=== PATIENT | male | born 1940 | race Asian ===

== ENCOUNTER 2018-05-14 11:50 | Inpatient (IN) | payer OTHER, BC ==
[2018-05-14] MEDS ORDERED: ONDANSETRON 4 MG/2 ML VIAL ONE (12:37)
[2018-05-14] MEDS ORDERED: ONDANSETRON 4 MG/2 ML VIAL IVPUSH ONE (12:37)
[2018-05-14] MEDS ORDERED: SODIUM CHLORIDE 0.9% 1000 ML INFUS.BAG IV ONE ×3 (12:40→16:40)
[2018-05-14] MEDS ORDERED: morphine CARPU-JECT 4 MG/1 ML DISP.SYRIN IVPUSH ONE (12:48)
[2018-05-14 13:03] LABS: BASO % 0.3 % (0-2.0); EOS % 2.3 % (0-4.5); HEMATOCRIT 47.7 % (35.4-49); HEMOGLOBIN 15.7 GM/dL (11.7-16.9); LYMPH % 13.6 % (8-40); MCH 28.2 pg (25.7-33.7); MCHC 32.9 g/dl (32.0-35.9); MEAN CELL VOLUME 85.7 fl (80-96); MEAN PLT VOLUME 9.7 fl (7.5-11.1); MONO % 12.2 % (3.8-10.2); NEUT % 71.6 % (42.8-82.8); PLATELET COUNT 184 K/MM3 (134-434); RBC 5.57 M/mm3 (4.00-5.60); RDW 13.5 % (11.9-15.9); WHITE BLOOD COUNT 12.1 K/mm3 (4.0-10.0)
--- NOTE | 2018-05-14 13:07 | PDOC ---
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 The patient reports that when he woke up he had epigastric abdominal pain that was dull and would come and go and become sharp but nonradiating, approx 2 hours after the pain started he began having NBNB vomiting and states that he cannot count the number of episodes of vomiting he has had. He has never had this pain before but notes a history of peptic ulcer bleed 50 years ago that had healed. Since this AM the patient has had 1x normal well formed bowel movements that was nonbloody and has been passing gas. The patient denies a prior history of small bowel obstruction. The patient denies any fevers. The patient denies any other family members having similar symptoms , denies recent travel. Denies diarrhea or constipation, chest pain, shortness of breath, dysuria, or any other complaints at bedside. PMHX: as in HPI PSHX: inguinal hernia repair, umbilical hernia repair, appendectomy, prostate resection Meds: metoprolol, atorvastatin, ASA 81, amlodipine Allergies: none Tob: none Etoh: none Rec drugs: none Past History - Past Medical History Allergies/Adverse Reactions: Allergies Allergy/AdvReac Type Severity Reaction Status Date / Time No Known Allergies Allergy Verified 05/14/18 13:35 Home Medications: Ambulatory Orders Amlodipine Besylate [Norvasc] 10 mg PO DAILY 06/26/12 Metoprolol Tartrate [Lopressor] 50 mg PO DAILY 06/26/12 Aspirin [Aspirin EC] 81 mg PO DAILY 05/14/18 Atorvastatin Ca [Lipitor] 10 mg PO HS 05/14/18 Tramadol HCl 50 mg PO TID PRN 05/14/18 Cancer: Yes (prostate + lung) Cardiac Disorders: Yes CVA: No COPD: No GI Disorders: Yes (Hernia) HTN: Yes Lung CA: Yes (lobectomy) - Surgical History Abdominal Surgery: Yes (hernia repair) Appendectomy: Yes Lung Surgery: Yes - Immunization History Immunization Up to Date: No - Suicide/Smoking/Psychosocial Hx Smoking Status: No Smoking History: Never smoked Have you smoked in the past 12 months: No Number of Cigarettes Smoked Daily: 0 Information on smoking cessation initiated: No 'Breaking Loose' booklet given: 06/26/12 Hx Alcohol Use: No Drug/Substance Use Hx: No Substance Use Type: None Hx Substance Use Treatment: No Review of Systems - Review of Systems Able to Perform ROS?: Yes Is the patient limited Greek proficient: No *Physical Exam - Vital Signs Last Vital Signs Temp Pulse Resp BP Pulse Ox 97.5 F L 63 18 135/68 98 05/14/18 12:07 05/14/18 12:07 05/14/18 12:07 05/14/18 12:07 05/14/18 12:07 - Physical Exam Comments: 05/14/18 13:08 GENERAL: Awake, alert, and fully oriented, in no acute distress HEAD: No signs of trauma, normocephalic, atraumatic EYES: EOMI, sclera anicteric, conjunctiva clear ENT: oropharynx clear without exudates. Moist mucosa NECK: Normal ROM, supple, no lymphadenopathy, JVD, or masses LUNGS: No distress, speaks full sentences, clear to auscultation bilaterally HEART: Regular rate and rhythm, normal S1 and S2, no murmurs, rubs or gallops, peripheral pulses normal and equal bilaterally. ABDOMEN: Soft, distended, tympanitic to percussion, tenderness to epigastric palpation, palpation elicited emesis. No guarding, no rebound. No masses. hypoactive bowel sounds EXTREMITIES : Normal inspection, Normal range of motion, no edema. No clubbing or cyanosis. 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 The patient reports that when he woke up he had epigastric abdominal pain that was dull and would come and go and become sharp but nonradiating, approx 2 hours after the pain started he began having NBNB vomiting and states that he cannot count the number of episodes of vomiting he has had. He has never had this pain before but notes a history of peptic ulcer bleed 50 years ago that had healed. DDX including but not limited to: SBO vs PUD perforation vs viral gastroenteritis W/U: - cbc, cmp, lactic acid, lipase - ua, ucx - abd CT TX: - morphine 4 - zofran 4 ED Course: Patient actively vomiting at bedside. NBNB emesis reports same color as food/ drinks. 05/14/18 15:20 Patient reassessed. Feels improved with morphine. Tenderness to palpation on RUQ and LUQ. Ambulating without difficulty to the bathroom. 05/14/18 16:59 CT abd: significant for small bowel obstruction w/ lead point at the terminal ileum 05/14/18 17:01 Dr. Ramires patient's PCP contacted. Will accept patient for SBO. IV Zosyn started for surgery ppx. *DC/Admit/Observation/Transfer Diagnosis at time of Disposition: Small bowel obstruction - Discharge Dispostion Condition at time of disposition: Stable Decision to Admit order: Yes - Referrals - Patient Instructions - Post Discharge Activity
[2018-05-14] MEDS ORDERED: morphine SULFATE 4 MG/ML VIAL ONE (13:08)
[2018-05-14 13:12] LABS: URINE APPEARANCE CLEAR; URINE BILIRUBIN NEGATIVE (<2.0 mg/dL); URINE COLOR YELLOW; URINE GLUCOSE (UA) NEGATIVE (NEGATIVE); URINE KETONE NEGATIVE (NEGATIVE); URINE LEUK ESTERASE NEGATIVE (NEGATIVE); URINE NITRITE NEGATIVE (NEGATIVE); URINE PROTEIN 1+ (NEGATIVE); URINE UROBILINOGEN NEGATIVE mg/dL (0.2-1.0)
[2018-05-14 13:25] LABS: ALBUMIN 4.8 g/dl (3.4-5.0); ALK PHOS 70 U/L (45-117); ANION GAP 4 MMOL/L (8-16); BLOOD UREA NITROGEN 16 mg/dL (7-18); CALCIUM 10.3 mg/dL (8.5-10.1); CHLORIDE 104 mmol/L (98-107); CO2 29 mmol/L (21-32); CREATININE 1.5 mg/dL (0.55-1.3); GLUCOSE,RANDOM 129 mg/dL (74-106); LIPASE 168 U/L (73-393); POTASSIUM 3.9 mmol/L (3.5-5.1); SGOT/AST 23 U/L (15-37); SGPT/ALT 33 U/L (13-61); SODIUM 137 mmol/L (136-145); TOT PROT 8.9 g/dl (6.4-8.2)
--- NOTE | 2018-05-14 13:33 | PDOC ---
Attending Attestation - HPI HPI: 05/14/18 13:43 The patient is a 77 year old male, with a significant past medical history of hypertension, prostate and lung CA (s/p Chemo +10 years ago), and multiple surgeries, who presents to the emergency department with nausea, vomiting, abdominal pain this morning. He reports about 5 episodes of nonbilious/ nonbloody emesis prior to ED arrival today. He reports diffuse upper abdominal pain which has been intermittent. He also reports feeling bloated. He reports a normal, small, bowel movement this morning. He states he has been passing gas from below. He denies a history of SBO in the past. He denies any recent sick contacts. The patient denies chest pain, shortness of breath, headache and dizziness. The patient denies fever, chills, diarrhea and constipation. The patient denies dysuria, frequency, urgency and hematuria. Allergies: NKDA Past surgical history: inguinal hernia repair, umbilical hernia repair, appendectomy, prostate resection, lobectomy - Physicial Exam PE: 05/14/18 13:44 ROS: A complete review of 10 out of 10 review of systems is taken and is negative apart from what is previously mentioned below and in the HPI. Vitals: Triage vital signs reviewed General Appearance: No acute distress, well nourished, well developed Head: Atraumatic Eyes: Pupils equal reactive round, extraocular movement intact Neck: Supple; No nuchal rigidity Chest Wall: Nontender Cardiac: Regular rate and rhythm, no murmurs, no rubs, no gallops Lungs: Clear to auscultation bilateral, good air movement bilaterally Abdomen: (+) mild epigastric tenderness to palpation. Mildly distended. Soft, normal bowel sounds, Extremities: Full range of motion to all extremities, no cyanosis, clubbing, or edema Skin: Warm and dry, no rashes or lesions, no rash, no petechiae Neuro: AOX3; Cranial Nerves 2-12 grossly intact, Strength intact to all extremities, Sensation intact to all extremities, Psych: Normal mood, normal affect - Medical Decision Making 05/14/18 13:45 Documentation prepared by Sara Veliz, acting as medical records director for Uli Rodriguez MD 05/14/18 16:59 Dr. Ramires was paged via phone answering service at this time. <Sara Veliz - Last Filed: 05/14/18 16:59> - Resident Resident Name: Letitia Galan - ED Attending Attestation I have performed the following: I have examined & evaluated the patient, The case was reviewed & discussed with the resident, I agree w/resident's findings & plan, Exceptions are as noted - Medical Decision Making Nausea vomiting abdominal pain CT abdomen and pelvis demonstrates small bowel obstruction NG tube placed. 2 L normal saline given Surgery consulted We'll admit to medicine for further management. <Uli Rodriguez - Last Filed: 05/14/18 19:15>
[2018-05-14 13:37] LABS: EPI CELLS RARE /HPF (FEW); URINE MUCUS RARE
[2018-05-14] MEDS ORDERED: LACTATED RINGERS SOLUTION 1,000 ML/1,000 ML INFUS.BAG IV SCH (17:00)
--- NOTE | 2018-05-14 17:04 | CONSULT ---
Consult Consult Specialty:: General Surgery Referred by:: Uli Rodriguez Reason for Consultation:: SBO - History of Present Illness Chief Complaint: abdominal pain, N/V History of Present Illness: 77yo [place] M with HTN, HLD, PUD, h/o lung and prostate CA s/p resections and chemo (lung) (13yrs ago), s/p appendectomy, prostatectomy, umbilical hernia repair and left inguinal hernia repair, presented with epigastric pain, bloating , N/V starting early this morning. He admits to mild epigastric pain yesterday, but didn't think much of it and had normal dinner of fish and rice. Around 4am, the pain got significant, but he tried to sleep. He got up again, had some tea, then he subsequently vomited multiple times, mostly liquid, no blood, and the pain got worse. He has noticed some bloating since yesterday as well. Never had this pain before, even when he had bleeding ulcer 50 yrs ago. He did have a BM this morning, and has passed some gas. Denies F/C, mild headache only with vomiting, no diarrhea or constipation. In the ER, he is afebrile, with wbc 12, Hb 15.7, lactate 2, normal GI labs, BUN/ Cr 16/1.5. CT shows small bowel obstruction with dilated stomach and most of SB , transition in terminal ileum region, decompressed colon with proximal stool present, small amount of fluid in RLQ/pelvis in mesentery, no diverticulitis, no free air; oral contrast was not given. NG tube was placed, with only ~100+ml clear output. Surgery is asked to assess. - History Source History Provided By: Patient, Medical Record Limitations to Obtaining History: No Limitations - Past Medical History [employer]ULBS: Yes: Peripheral Neuropathy (secondary to chemo) Cardio/Vascular: Yes: HTN, Hyperlipdemia Pulmonary: Yes: Cancer (GREGORY) Gastrointestinal: Yes: GI Bleed (bleeding ulcer 50 yrs ago), Peptic Ulcer Disease (bled 50 yrs ago) Renal/: Yes: Cancer (prostate s/p prostatectomy) - Past Surgical History Past Surgical History: Yes: Appendectomy (right paramedian scar), Hernia Repair (umbilical and left inguinal), Prostatectomy (lower midline pelvic scar) Additional Surgical History: left upper lung lobectomy - Alcohol/Substance Use Hx Alcohol Use: No ( quit years ago when he had bleeding ulcer) History of Substance Use: reports: None - Smoking History Smoking history: Former smoker Have you smoked in the past 12 months: No If you are a former smoker, when did you quit?: ~10 pk-yr hx from teens to 25yo - Social History Usual Living Arrangement: With Spouse ADL: Independent Place of : Other ([facility]) Home Medications - Allergies Allergies/Adverse Reactions: Allergies Allergy/AdvReac Type Severity Reaction Status Date / Time No Known Allergies Allergy Verified 05/14/18 13:35 - Home Medications Home Medications: Ambulatory Orders Amlodipine Besylate [Norvasc] 10 mg PO DAILY 06/26/12 Metoprolol Tartrate [Lopressor] 50 mg PO DAILY 06/26/12 Aspirin [Aspirin EC] 81 mg PO DAILY 05/14/18 Atorvastatin Ca [Lipitor] 10 mg PO HS 05/14/18 Tramadol HCl 50 mg PO TID PRN 05/14/18 Home Medications (free text): Pramipexole also. Albuterol MDI prn Family Disease History - Family Disease History Family Disease History: Heart Disease: Father ( of enlarged heart), CA: Grandparent (GM - liver, GF - asthma), Respiratory: Grandparent Review of Systems - Review of Systems Constitutional: denies: Chills, Fever, Loss of Appetite Eyes: denies: Blurred Vision, Recent Change in Vision HENT: denies: Difficult Swallowing, Nasal Congestion, Throat Pain Neck: denies: Swollen Glands, Tenderness Cardiovascular: denies: Chest Pain, Palpitations Respiratory: reports: SOB on Exertion (since lung surgery). denies: Cough, SOB Gastrointestinal: reports: Abdominal Pain (with hpi), Bloating (with hpi), Nausea (with hpi), Vomiting (with hpi). denies: Constipation, Diarrhea, Vomiting Blood Genitourinary: reports: Incontinence (since prostate surgery, dribbles/leaks sometimes). denies: Burning, Dysuria Musculoskeletal: reports: Back Pain (chronic), Joint Pain (chronic), Other ( restless legs at night). denies: Muscle Pain Integumentary: denies: Change in Color, Rash Neurological: reports: Numbness (fingers and toes/feet). denies: Dizziness, Headache Psychiatric: reports: Anxiety. denies: Depression Physical Exam Vital Signs: Vital Signs Temperature 97.5 F L 05/14/18 12:07 Pulse Rate 63 05/14/18 12:07 Respiratory Rate 18 05/14/18 12:07 Blood Pressure 135/68 05/14/18 12:07 O2 Sat by Pulse Oximetry (%) 98 05/14/18 12:07 Constitutional: Yes: Well Nourished, No Distress, Calm Eyes: Yes: Conjunctiva Clear, EOM Intact HENT: Yes: Atraumatic, Normocephalic, Other (NG in place, clear output with occasional debris, ~100ml in canister) Neck: Yes: Supple, Trachea Midline Cardiovascular: Yes: Regular Rate and Rhythm, Murmur Respiratory: Yes: Regular, CTA Bilaterally. No: Wheezes Gastrointestinal: Yes: Normal Bowel Sounds (hyperactive in upper quadrants at times), Soft, Distention (tympanitic), Tenderness (LUQ, less epigastric, no jayant/ guarding), Tenderness, Epigastrium (mild), Other (healed scars - right paramedian, lower midline/pelvic, infraumbilical, left groin). No: Tenderness, Rebound ...Rectal Exam: Yes: Deferred Renal/: Yes: Other (nearly clear urine 225ml in urinal). No: CVA Tenderness - Left, CVA Tenderness - Right, Hematuria Musculoskeletal: No: Joint Stiffness, Joint Swelling Extremities: No: Cool, Cyanosis Edema: No Peripheral Pulses WNL: Yes Integumentary: No: Jaundice, Rash Neurological: Yes: Alert, Oriented Psychiatric: Yes: Alert, Oriented Labs: CBC, BMP 05/14/18 12:39 05/14/18 12:39 CMP Sodium 137 mmol/L (136-145) 05/14/18 12:39 Potassium 3.9 mmol/L (3.5-5.1) 05/14/18 12:39 Chloride 104 mmol/L (98-107) 05/14/18 12:39 Carbon Dioxide 29 mmol/L (21-32) 05/14/18 12:39 Anion Gap 4 MMOL/L (8-16) L 05/14/18 12:39 BUN 16 mg/dL (7-18) 05/14/18 12:39 Creatinine 1.5 mg/dL (0.55-1.3) H 05/14/18 12:39 Creat Clearance w eGFR 45.38 (>60) 05/14/18 12:39 Random Glucose 129 mg/dL (74-106) H 05/14/18 12:39 Lactic Acid 2.0 mmol/L (0.4-2.0) 05/14/18 12:39 Calcium 10.3 mg/dL (8.5-10.1) H 05/14/18 12:39 Total Bilirubin 1.0 mg/dL (0.2-1) 05/14/18 12:39 AST 23 U/L (15-37) 05/14/18 12:39 ALT 33 U/L (13-61) 05/14/18 12:39 Alkaline Phosphatase 70 U/L (45-117) 05/14/18 12:39 Total Protein 8.9 g/dl (6.4-8.2) H 05/14/18 12:39 Albumin 4.8 g/dl (3.4-5.0) 05/14/18 12:39 Lipase 168 U/L (73-393) 05/14/18 12:39 INR, PTT INR 1.02 (0.83-1.09) 05/14/18 16:57 Urine Test Results Urine Color Yellow 05/14/18 12:50 Urine Appearance Clear 05/14/18 12:50 Urine pH 8.0 (5.0-8.0) D 05/14/18 12:50 Ur Specific [place] 1.020 (1.010-1.035) 05/14/18 12:50 Urine Protein 1+ (NEGATIVE) H 05/14/18 12:50 Urine Glucose (UA) Negative (NEGATIVE) 05/14/18 12:50 Urine Ketones Negative (NEGATIVE) 05/14/18 12:50 Urine Blood Negative (NEGATIVE) 05/14/18 12:50 Urine Nitrite Negative (NEGATIVE) 05/14/18 12:50 Urine Bilirubin Negative (<2.0 mg/dL) 05/14/18 12:50 Ur Leukocyte Esterase Negative (NEGATIVE) 05/14/18 12:50 Ur Epithelial Cells Rare /HPF (FEW) 05/14/18 12:50 Urine Mucus Rare 05/14/18 12:50 dehydrated by labs renal function near baseline lactate 2, likely a bit dry wbc up a little but H/H also high Imaging - Results Cat Scan: Report Reviewed, Image Reviewed (images personally reviewed - SBO with dilated stomach and SB loops to terminal ileum, with area of transition distally, nondilated colon, stool in proximal colon, decompressed distally, some fluid in RLQ/pelvis in mesentery, no diverticulitis, no free air) Problem List - Problems (1) Small bowel obstruction due to adhesions Assessment/Plan: admitted to medicine NPO/IVF - generous IV rehydration NGT to low continuous suction trend labs serial exams and AXR - will probably need contrast down NGT once he improves and when output diminishes, to follow through to resolution pain meds prn - would use IV Tylenol over narcotics as able GI/DVT prophylaxis hold aspirin and home/ALL po meds until NG out/taking po again will follow with you Thank you for the opportunity to participate in the care of this patient. Code(s): K56.50 - INTESTNL ADHESIONS, UNSP TO PARTIAL VERSUS COMPLETE OBST (2) Epigastric pain Code(s): R10.13 - EPIGASTRIC PAIN (3) Hypovolemia associated with vomiting Code(s): E86.1 - HYPOVOLEMIA (4) Nausea and vomiting Code(s): R11.2 - NAUSEA WITH VOMITING, UNSPECIFIED Qualifiers: Vomiting type: unspecified Vomiting Intractability: non-intractable Qualified Code(s): R11.2 - Nausea with vomiting, unspecified (5) History of lung cancer Assessment/Plan: s/p left upper lobectomy, chemo Code(s): Z85.118 - PERSONAL HISTORY OF MALIGNANT NEOPLASM OF BRONCHUS AND LUNG (6) H/O prostate cancer Assessment/Plan: s/p prostatectomy, denies radiation or chemo for this Code(s): Z85.46 - PERSONAL HISTORY OF MALIGNANT NEOPLASM OF PROSTATE
[2018-05-14 17:48] LABS: INR 1.02 (0.83-1.09)
[2018-05-14 17:50] LABS: ACTIVATED PTT 30.7 SECONDS (25.2-36.5)
[2018-05-14] MEDS ORDERED: PIPERACILLIN/TAZOB 4.5 GM 4.5 GM in DEXTROSE 5%-WATER 100 ML IVPB ONE (18:10)
[2018-05-14] MEDS: LACTATED RINGERS SOLUTION 1,000 ML/1,000 ML INFUS.BAG IV SCH (19:06)
[2018-05-14] MEDS ORDERED: PIPERACILLIN/TAZOB 4.5 GM 4.5 GM/100 ML BAG IVPB ONE (19:08)
[2018-05-15] MEDS ORDERED: morphine SULFATE 4 MG/ML VIAL IVPUSH ONE (03:02)
[2018-05-15] MEDS ORDERED: morphine SULFATE 4 MG/ML VIAL ONE ×2 (03:09→08:13)
[2018-05-15] MEDS ORDERED: morphine SULFATE 4 MG/ML VIAL IVPUSH PRN (05:40)
[2018-05-15] MEDS ORDERED: ONDANSETRON 4 MG/2 ML VIAL ONE (06:14)
[2018-05-15] MEDS: ONDANSETRON 4 MG/2 ML VIAL IVPUSH SCH ×3 (06:19→21:35)
[2018-05-15 06:57] LABS: BASO % 0.5 % (0-2.0); EOS % 1.5 % (0-4.5); HEMATOCRIT 43.9 % (35.4-49); HEMOGLOBIN 14.5 GM/dL (11.7-16.9); LYMPH % 13.1 % (8-40); MCH 28.5 pg (25.7-33.7); MCHC 33.1 g/dl (32.0-35.9); MEAN PLT VOLUME 9.6 fl (7.5-11.1); MONO % 17.7 % (3.8-10.2); NEUT % 67.2 % (42.8-82.8); PLATELET COUNT 161 K/MM3 (134-434); RDW 13.5 % (11.9-15.9); WHITE BLOOD COUNT 12.3 K/mm3 (4.0-10.0)
[2018-05-15 07:20] LABS: ANION GAP 6 MMOL/L (8-16); BLOOD UREA NITROGEN 11 mg/dL (7-18); CALCIUM 8.8 mg/dL (8.5-10.1); CHLORIDE 107 mmol/L (98-107); CO2 26 mmol/L (21-32); CREATININE 1.2 mg/dL (0.55-1.3); GLUCOSE,RANDOM 132 mg/dL (74-106); MAGNESIUM 2.5 mg/dL (1.8-2.4); POTASSIUM 3.4 mmol/L (3.5-5.1); SODIUM 140 mmol/L (136-145)
--- NOTE | 2018-05-15 07:44 | HP ---
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 The patient reports that when he woke up he had epigastric abdominal pain that was dull and would come and go and become sharp but nonradiating, approx 2 hours after the pain started he began having NBNB vomiting and states that he cannot count the number of episodes of vomiting he has had. He has never had this pain before but notes a history of peptic ulcer bleed 50 years ago that had healed. Since this AM the patient has had 1x normal well formed bowel movements that was nonbloody and has been passing gas. The patient denies a prior history of small bowel obstruction. The patient denies any fevers. The patient denies any other family members having similar symptoms , denies recent travel. Denies diarrhea or constipation, chest pain, shortness of breath, dysuria, or any other complaints at bedside. 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: Peripheral Neuropathy (secondary to chemo) Cardiovascular: Yes: HTN, Hyperlipdemia Pulmonary: Yes: Cancer (GREGORY) Gastrointestinal: Yes: GI Bleed (bleeding ulcer 50 yrs ago), Peptic Ulcer Disease (bled 50 yrs ago) Renal/: Yes: Cancer (prostate s/p prostatectomy) - Past Surgical History Past Surgical History: Yes: Appendectomy (right paramedian scar), Hernia Repair (umbilical and left inguinal), Prostatectomy (lower midline pelvic scar) - Smoking History Smoking history: Former smoker Have you smoked in the past 12 months: No Aproximately how many cigarettes per day: 0 If you are a former smoker, when did you quit?: ~10 pk-yr hx from teens to 25yo - Alcohol/Substance Use Hx Alcohol Use: No ( quit years ago when he had bleeding ulcer) History of Substance Use: reports: None - Social History ADL: Independent Home Medications - Allergies Allergies/Adverse Reactions: Allergies Allergy/AdvReac Type Severity Reaction Status Date / Time No Known Allergies Allergy Verified 05/14/18 13:35 - Home Medications Home Medications: Ambulatory Orders Amlodipine Besylate [Norvasc] 10 mg PO DAILY 06/26/12 Metoprolol Tartrate [Lopressor] 50 mg PO DAILY 06/26/12 Aspirin [Aspirin EC] 81 mg PO DAILY 05/14/18 Atorvastatin Ca [Lipitor] 10 mg PO HS 05/14/18 Tramadol HCl 50 mg PO TID PRN 05/14/18 Family Disease History - Family Disease History Family Disease History: Heart Disease: Father ( of enlarged heart), CA: Grandparent (GM - liver, GF - asthma), Respiratory: Grandparent Physical Examination Vital Signs: Vital Signs Temperature 99.0 F 05/15/18 06:44 Pulse Rate 65 05/15/18 06:44 Respiratory Rate 18 05/15/18 06:44 Blood Pressure 165/74 05/15/18 06:44 O2 Sat by Pulse Oximetry (%) 98 05/15/18 06:44 Labs: CBC, BMP 05/15/18 06:30 05/15/18 06:30 Problem List - Problems (1) Small bowel obstruction Code(s): K56.609 - UNSP INTESTNL OBST, UNSP TO PARTIAL VERSUS COMPLETE OBST (2) History of lung cancer Code(s): Z85.118 - PERSONAL HISTORY OF MALIGNANT NEOPLASM OF BRONCHUS AND LUNG (3) History of lobectomy of lung Code(s): Z90.2 - ACQUIRED ABSENCE OF LUNG [PART OF] (4) Hypovolemia associated with vomiting Code(s): E86.1 - HYPOVOLEMIA (5) Small bowel obstruction due to adhesions Code(s): K56.50 - INTESTNL ADHESIONS, UNSP TO PARTIAL VERSUS COMPLETE OBST (6) Nausea and vomiting Code(s): R11.2 - NAUSEA WITH VOMITING, UNSPECIFIED Qualifiers: Vomiting type: unspecified Vomiting Intractability: non-intractable Qualified Code(s): R11.2 - Nausea with vomiting, unspecified Assessment/Plan (1) Small bowel obstruction: NGT/IVfluids Code(s): K56.609 - UNSP INTESTNL OBST, UNSP TO PARTIAL VERSUS COMPLETE OBST (2) History of lung cancer Code(s): Z85.118 - PERSONAL HISTORY OF MALIGNANT NEOPLASM OF BRONCHUS AND LUNG (3) History of lobectomy of lung Code(s): Z90.2 - ACQUIRED ABSENCE OF LUNG [PART OF] (4) Hypovolemia associated with vomiting Code(s): E86.1 - HYPOVOLEMIA (5) Small bowel obstruction due to adhesions Code(s): K56.50 - INTESTNL ADHESIONS, UNSP TO PARTIAL VERSUS COMPLETE OBST (6) Nausea and vomiting Code(s): R11.2 - NAUSEA WITH VOMITING, UNSPECIFIED Qualifiers: Vomiting type: unspecified Vomiting Intractability: non-intractable Qualified Code(s): R11.2 - Nausea with vomiting, unspecified 7) Sepsis/Immunocompramised with ca Lung/Ca prostate: IV zosyn 8) PUD with Gastritis: IV Protonix 8) HTN: IV Metoprolol as Pt is on NG suction case discussed with Surgery Dr Donnelly Pt passing faltus Abd soft Gastritis with Protonix Leukocytosis/Immunocompramised/ Zosyn : ID Dr Lantigua ECHO: WNL IV metoprolol to contorl HTN as Pt on NG tube suction KUB done FU labs and KUB in AM
--- NOTE | 2018-05-15 09:54 | EKG ---
Test Reason : Blood Pressure : / mmHG Vent. Rate : 066 BPM Atrial Rate : 066 BPM P-R Int : 188 ms QRS Dur : 082 ms QT Int : 404 ms P-R-T Axes : 034 -03 038 degrees QTc Int : 423 ms NORMAL SINUS RHYTHM WITH SINUS ARRHYTHMIA INFERIOR INFARCT , AGE UNDETERMINED ABNORMAL ECG WHEN COMPARED WITH ECG OF 26-JUN-2012 12:08, NONSPECIFIC T WAVE ABNORMALITY NOW EVIDENT IN ANTERIOR LEADS Confirmed by RENETTA PRADHAN, ALEX ([id number]) on 05/15/2018 9:54:01 AM Referred By: Confirmed By:ALEX JACKSON MD
[2018-05-15] MEDS: PIPERACILLIN/TAZOB 3.375 GM 3.375 GM in DEXTROSE 5%-WATER - 50 ML IVPB SCH ×2 (10:36→17:13)
--- NOTE | 2018-05-15 11:56 | CON.CARD ---
Consult Consult Specialty:: Cardiology Referred by:: Dr. Ramires Reason for Consultation:: Pre-operative cardiovascular evaluation - History of Present Illness Chief Complaint: Abd pain History of Present Illness: 77yo [place] M with HTN, HLD, PUD, h/o lung and prostate CA s/p resections and chemo (lung) (13yrs ago), s/p appendectomy, prostatectomy, umbilical hernia repair and left inguinal hernia repair, presented with epigastric pain, bloating , nausea, nonbloody emesis, had BM and passing gas. CT shows small bowel obstruction with dilated stomach and most of SB, transition in terminal ileum region, decompressed colon with proximal stool present, small amount of fluid in RLQ/pelvis in mesentery, no diverticulitis, no free air; oral contrast was not given. NG tube was placed, with only ~100+ml clear output. Regarding CV- symptoms, he denies chest pain, dyspnea, near or true syncope, palpitations, orthopnea, PND or LE edema. 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) Cardio/Vascular: Yes: HTN, Hyperlipdemia Pulmonary: Yes: Cancer (GREGORY) Gastrointestinal: Yes: GI Bleed (bleeding ulcer 50 yrs ago), Peptic Ulcer Disease (bled 50 yrs ago) Renal/: Yes: Cancer (prostate s/p prostatectomy) - Past Surgical History Past Surgical History: Yes: Appendectomy (right paramedian scar), Hernia Repair (umbilical and left inguinal), Prostatectomy (lower midline pelvic scar) Additional Surgical History: left upper lung lobectomy - Alcohol/Substance Use Hx Alcohol Use: No ( quit years ago when he had bleeding ulcer) History of Substance Use: reports: None - Smoking History Smoking history: Former smoker Have you smoked in the past 12 months: No Aproximately how many cigarettes per day: 0 If you are a former smoker, when did you quit?: ~10 pk-yr hx from teens to 25yo - Social History Usual Living Arrangement: With Spouse ADL: Independent Home Medications - Allergies Allergies/Adverse Reactions: Allergies Allergy/AdvReac Type Severity Reaction Status Date / Time No Known Allergies Allergy Verified 05/14/18 13:35 - Home Medications Home Medications: Ambulatory Orders Amlodipine Besylate [Norvasc] 10 mg PO DAILY 06/26/12 Metoprolol Tartrate [Lopressor] 50 mg PO DAILY 06/26/12 Aspirin [Aspirin EC] 81 mg PO DAILY 05/14/18 Atorvastatin Ca [Lipitor] 10 mg PO HS 05/14/18 Tramadol HCl 50 mg PO TID PRN 05/14/18 Family Disease History - Family Disease History Family Disease History: Heart Disease: Father ( of enlarged heart), CA: Grandparent (GM - liver, GF - asthma), Respiratory: Grandparent Review of Systems - Review of Systems Constitutional: reports: Loss of Appetite Eyes: reports: No Symptoms HENT: reports: No Symptoms Neck: reports: No Symptoms Cardiovascular: reports: No Symptoms Respiratory: reports: No Symptoms Gastrointestinal: reports: Abdominal Pain, Bloating, Nausea, Vomiting Genitourinary: reports: No Symptoms Musculoskeletal: reports: No Symptoms Integumentary: reports: No Symptoms Neurological: reports: No Symptoms Vital Signs: Vital Signs Temperature 99.0 F 05/15/18 06:44 Pulse Rate 65 05/15/18 06:44 Respiratory Rate 18 05/15/18 06:44 Blood Pressure 165/74 05/15/18 06:44 O2 Sat by Pulse Oximetry (%) 98 05/15/18 06:44 - Other Data Labs, Other Data: CBC, BMP 05/15/18 06:30 05/15/18 06:30 INR, PTT INR 1.02 (0.83-1.09) 05/14/18 16:57 NSR @ 66 inferior Qs Assessment/Plan Amlodipine Besylate [Norvasc] 10 mg PO DAILY 06/26/12 Metoprolol Tartrate [Lopressor] 50 mg PO DAILY 06/26/12 Aspirin [Aspirin EC] 81 mg PO DAILY 05/14/18 Atorvastatin Ca [Lipitor] 10 mg PO HS 05/14/18 Tramadol HCl 50 mg PO TID PRN 05/14/18 - Results Cat Scan: Report Reviewed, Image Reviewed (images personally reviewed - SBO with dilated stomach and SB loops to terminal ileum, with area of transition distally, nondilated colon, stool in proximal colon, decompressed distally, some fluid in RLQ/pelvis in mesentery, no diverticulitis, no free air) Problem List - Problems (1) Small bowel obstruction due to adhesions Assessment/Plan: admitted to medicine NPO/IVF - generous IV rehydration NGT to low continuous suction trend labs serial exams and AXR - will probably need contrast down NGT once he improves and when output diminishes, to follow through to resolution pain meds prn - would use IV Tylenol over narcotics as able GI/DVT prophylaxis hold aspirin and home/ALL po meds until NG out/taking po again will follow with you Thank you for the opportunity to participate in the care of this patient. Code(s): K56.50 - INTESTNL ADHESIONS, UNSP TO PARTIAL VERSUS COMPLETE OBST (2) Epigastric pain Code(s): R10.13 - EPIGASTRIC PAIN (3) Hypovolemia associated with vomiting Code(s): E86.1 - HYPOVOLEMIA (4) Nausea and vomiting Code(s): R11.2 - NAUSEA WITH VOMITING, UNSPECIFIED Qualifiers: Vomiting type: unspecified Vomiting Intractability: non-intractable Qualified Code(s): R11.2 - Nausea with vomiting, unspecified (5) History of lung cancer Assessment/Plan: s/p left upper lobectomy, chemo Code(s): Z85.118 - PERSONAL HISTORY OF MALIGNANT NEOPLASM OF BRONCHUS AND LUNG (6) H/O prostate cancer Assessment/Plan: s/p prostatectomy, denies radiation or chemo for this Code(s): Z85.46 - PERSONAL HISTORY OF MALIGNANT NEOPLASM OF PROSTATE
--- NOTE | 2018-05-15 12:11 | PN ---
Progress Note, Physician History of Present Illness: Pt with SBO s/p multiple abdominal surgeries. NPO with NGT decompression, 750ml brown fluid out overnight, on IVF. Pt had pain overnight, rested after morphine at one point, still with epigastric pain, similar to yesterday. Passed gas twice this morning, no BM. Abdomen still somewhat distended. No overnight events. AXR last night showed NG in stomach, somewhat far in. AXR not yet taken today. - Current Medication List Current Medications: Active Medications Lactated Ringer's (Lactated Ringers Solution) 1,000 ml in 1,000 mls @ 100 mls/ hr IV ASDIR GINA Last Admin: 05/14/18 19:06 Dose: Not Given Piperacillin Sod/Tazobactam (Sod 3.375 gm/ Dextrose) 50 mls @ 100 mls/hr IVPB Q8H-IV GINA; Protocol Stop: 05/21/18 09:59 Piperacillin Sod/Tazobactam (Sod 3.375 gm/ Dextrose) 50 mls @ 100 mls/hr IVPB Q8H-IV GINA; Protocol Stop: 05/16/18 02:29 Last Admin: 05/15/18 10:36 Dose: 100 mls/hr Morphine Sulfate (Morphine Sulfate) 4 mg IVPUSH Q8H PRN PRN Reason: PAIN LEVEL 8 - 10 Last Admin: 05/15/18 08:18 Dose: 4 mg Ondansetron HCl (Zofran Injection) 4 mg IVPUSH TID GINA Last Admin: 05/15/18 06:19 Dose: 4 mg - Objective Vital Signs: Vital Signs Temperature 99.0 F 05/15/18 06:44 Pulse Rate 65 05/15/18 06:44 Respiratory Rate 18 05/15/18 06:44 Blood Pressure 165/74 05/15/18 06:44 O2 Sat by Pulse Oximetry (%) 98 05/15/18 06:44 Constitutional: Yes: Well Nourished, Calm, Mild Distress (uncomfortable) Eyes: Yes: Conjunctiva Clear, EOM Intact HENT: Yes: Atraumatic, Normocephalic, Other (NG in place - withdrawn several centimeters and resecured with good air sumping) Gastrointestinal: Yes: Soft, Distention, Hernia (umbilical/incisional defect palpable), Hypoactive Bowel Sounds (more on right, less on left), Tenderness ( mild diffuse, mostly epigastric, no rebound or guarding), Tenderness, Epigastrium. No: Tenderness, Rebound Musculoskeletal: No: Joint Stiffness, Joint Swelling Extremities: No: Cool, Cyanosis Integumentary: No: Jaundice, Rash Neurological: Yes: Alert, Oriented Labs: CBC, BMP 05/15/18 06:30 05/15/18 06:30 BUN/Cr down wbc slightly down H/H hydrated a bit K low - ....Imaging X-ray: Pending Problem List - Problems (1) Small bowel obstruction due to adhesions Assessment/Plan: admitted to medicine NPO/IVF - generous IV rehydration with K+ replete lytes prn NGT to low continuous suction trend labs serial exams and AXR - pending film this morning will probably need contrast down NGT once he improves and when output diminishes , to follow through to resolution pain meds prn - would use IV Tylenol over narcotics as able and for longer effect GI/DVT prophylaxis hold aspirin and home/ALL po meds until NG out/taking po again will follow with you Had discussed with patient and last night general R/B/A of exploratory laparotomy, possible bowel resection, if he does not resolve with conservative treatment, including but not limited to bleeding, infection, incisional hernia, injury to intraabdominal structures; he understands and would prefer to avoid surgery if possible, but would discuss further if it becomes indicated. Code(s): K56.50 - INTESTNL ADHESIONS, UNSP TO PARTIAL VERSUS COMPLETE OBST (2) Epigastric pain Code(s): R10.13 - EPIGASTRIC PAIN (3) Hypovolemia associated with vomiting Code(s): E86.1 - HYPOVOLEMIA (4) Nausea and vomiting Code(s): R11.2 - NAUSEA WITH VOMITING, UNSPECIFIED Qualifiers: Vomiting type: unspecified Vomiting Intractability: non-intractable Qualified Code(s): R11.2 - Nausea with vomiting, unspecified (5) History of lung cancer Code(s): Z85.118 - PERSONAL HISTORY OF MALIGNANT NEOPLASM OF BRONCHUS AND LUNG (6) H/O prostate cancer Code(s): Z85.46 - PERSONAL HISTORY OF MALIGNANT NEOPLASM OF PROSTATE
--- NOTE | 2018-05-15 12:15 | CON.CARD ---
Consult Consult Specialty:: Cardiology - History of Present Illness History of Present Illness: 77 year old man with past medical history of HTN, HLD, PUD, lung CA and prostate CA (remission for 13 yrs) inguinal hernia repair, umbilical hernia repair and polyneuropathy 2/2 chemotherapy who presents with abdominal pain and vomiting that started this AM. The patient reports that when he woke up he had epigastric abdominal pain that was dull and would come and go and become sharp but nonradiating, approx 2 hours after the pain started he began having NBNB vomiting and states that he cannot count the number of episodes of vomiting he has had. He has never had this pain before but notes a history of peptic ulcer bleed 50 years ago that had healed. Since this AM the patient has had 1x normal well formed bowel movements that was nonbloody and has been passing gas. The patient denies a prior history of small bowel obstruction. The patient denies any fevers. The patient denies any other family members having similar symptoms , denies recent travel. Denies diarrhea or constipation, chest pain, shortness of breath, dysuria, or any other complaints at bedside. 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) Cardio/Vascular: Yes: HTN, Hyperlipdemia Pulmonary: Yes: Cancer (GREGORY) Gastrointestinal: Yes: GI Bleed (bleeding ulcer 50 yrs ago), Peptic Ulcer Disease (bled 50 yrs ago) Renal/: Yes: Cancer (prostate s/p prostatectomy) - Past Surgical History Past Surgical History: Yes: Appendectomy (right paramedian scar), Hernia Repair (umbilical and left inguinal), Prostatectomy (lower midline pelvic scar) Additional Surgical History: left upper lung lobectomy - Alcohol/Substance Use Hx Alcohol Use: No ( quit years ago when he had bleeding ulcer) History of Substance Use: reports: None - Smoking History Smoking history: Former smoker Have you smoked in the past 12 months: No Aproximately how many cigarettes per day: 0 If you are a former smoker, when did you quit?: ~10 pk-yr hx from teens to 25yo - Social History Usual Living Arrangement: With Spouse ADL: Independent Home Medications - Allergies Allergies/Adverse Reactions: Allergies Allergy/AdvReac Type Severity Reaction Status Date / Time No Known Allergies Allergy Verified 05/14/18 13:35 - Home Medications Home Medications: Ambulatory Orders Amlodipine Besylate [Norvasc] 10 mg PO DAILY 06/26/12 Metoprolol Tartrate [Lopressor] 50 mg PO DAILY 06/26/12 Aspirin [Aspirin EC] 81 mg PO DAILY 05/14/18 Atorvastatin Ca [Lipitor] 10 mg PO HS 05/14/18 Tramadol HCl 50 mg PO TID PRN 05/14/18 Family Disease History - Family Disease History Family Disease History: Heart Disease: Father ( of enlarged heart), CA: Grandparent (GM - liver, GF - asthma), Respiratory: Grandparent Review of Systems - Review of Systems Constitutional: reports: No Symptoms Eyes: reports: No Symptoms HENT: reports: No Symptoms Neck: reports: No Symptoms Cardiovascular: reports: No Symptoms Gastrointestinal: reports: Abdominal Pain Genitourinary: reports: No Symptoms Breasts: reports: No Symptoms Reported Musculoskeletal: reports: No Symptoms Integumentary: reports: No Symptoms Neurological: reports: No Symptoms Endocrine: reports: No Symptoms Hematology/Lymphatic: reports: No Symptoms Psychiatric: reports: No Symptoms Vital Signs: Vital Signs Temperature 99.0 F 05/15/18 06:44 Pulse Rate 65 05/15/18 06:44 Respiratory Rate 18 05/15/18 06:44 Blood Pressure 165/74 05/15/18 06:44 O2 Sat by Pulse Oximetry (%) 98 05/15/18 06:44 Constitutional: Yes: Well Nourished, No Distress, Calm Eyes: Yes: WNL, Conjunctiva Clear, EOM Intact HENT: Yes: WNL, Atraumatic, Normocephalic Neck: Yes: WNL, Supple, Trachea Midline Respiratory: Yes: WNL, Regular, CTA Bilaterally Gastrointestinal: Yes: Hypoactive Bowel Sounds, Tenderness Renal/: Yes: WNL Cardiovascular: Yes: WNL, Regular Rate and Rhythm Musculoskeletal: Yes: WNL Extremities: Yes: WNL Integumentary: Yes: WNL Neurological: Yes: WNL, Alert, Oriented ...Motor Strength: WNL Psychiatric: Yes: WNL, Alert, Oriented - Other Data Labs, Other Data: CBC, BMP 05/15/18 06:30 05/15/18 06:30 INR, PTT INR 1.02 (0.83-1.09) 05/14/18 16:57 Imaging - Results Chest X-ray: Pending EKG: Image Reviewed (sr rep abn old IW NM) Problem List - Problems (1) Epigastric pain Code(s): R10.13 - EPIGASTRIC PAIN (2) H/O prostate cancer Code(s): Z85.46 - PERSONAL HISTORY OF MALIGNANT NEOPLASM OF PROSTATE (3) History of lung cancer Code(s): Z85.118 - PERSONAL HISTORY OF MALIGNANT NEOPLASM OF BRONCHUS AND LUNG (4) Hypovolemia associated with vomiting Code(s): E86.1 - HYPOVOLEMIA (5) Nausea and vomiting Code(s): R11.2 - NAUSEA WITH VOMITING, UNSPECIFIED Qualifiers: Vomiting type: unspecified Vomiting Intractability: non-intractable Qualified Code(s): R11.2 - Nausea with vomiting, unspecified (6) Small bowel obstruction Code(s): K56.609 - UNSP INTESTNL OBST, UNSP TO PARTIAL VERSUS COMPLETE OBST (7) Small bowel obstruction due to adhesions Code(s): K56.50 - INTESTNL ADHESIONS, UNSP TO PARTIAL VERSUS COMPLETE OBST (8) Dog bite - wound Code(s): W54.0XXA - BITTEN BY DOG, INITIAL ENCOUNTER (9) Thermal nava of multiple sites Code(s): T30.0 - BURN OF UNSPECIFIED BODY REGION, UNSPECIFIED DEGREE Assessment/Plan HTN, HLD, PUD, lung CA and prostate CA (remission for 13 yrs) inguinal hernia repair, umbilical hernia repair and polyneuropathy 2/2 chemotherapy who presents with abdominal pain and vomiting dx with SBO due to adhessions. Plan SBO - resolving cardiac szymanski stable will check ECHO
[2018-05-15] MEDS ORDERED: ACETAMINOPHEN 1000 MG/100 ML VIAL (NON FORMULARY) IVPB PRN (12:53)
[2018-05-15] MEDS ORDERED: METOPROLOL TARTRATE 5 MG/5 ML VIAL IVPUSH SCH (14:00)
--- NOTE | 2018-05-15 16:53 | ECHO ---
Version: 1 Name: SUSAN FELICIANO Exam: Adult Echocardiogram Study Date: 05/15/2018, 2:02 PM Age: 77 Years MMode/2D Measurements & Calculations IVSd: 1.10 cm LVIDs: 2.9 cm LVIDd: 4.3 cm LVPWd: 1.13 cm Ao root diam: 2.7 cm LA dimension: 3.4 cm Doppler Measurements & Calculations MV E max yasmany: 67.5 cm/sec Med E/e': 12.4 MV A max yasmany: 111.7 cm/sec Med Peak E' Yasmany: 5.5 cm/sec MV E/A: 0.60 Lat E/e': 11.3 Lat Peak E' Yasmany: 5.9 cm/sec Ao max P.7 mmHg Ao V2 max: 138.8 cm/sec Procedure A two-dimensional transthoracic echocardiogram with color flow and Doppler was performed. The study was technically difficult with many images being suboptimal in quality. Left Ventricle The left ventricular size, thickness and function are normal. The left ventricular ejection fraction is normal. E/A reversal consistent with but not diagnostic of poor LV compliance. The left ventricular wall motion is normal. Right Ventricle The right ventricle is not well visualized. Atria Normal left and right atrial size and function. Mitral Valve There is mild mitral valve thickening. There is no mitral valve stenosis. There is mild mitral regur gitation. Tricuspid Valve The tricuspid valve is not well visualized. There is no tricuspid stenosis. There was insufficient T R detected to calculate RV systolic pressure. Aortic Valve The aortic valve is not well visualized. No hemodynamically significant valvular aortic stenosis. No aortic regurgitation is present. Pulmonic Valve The pulmonic valve is not well visualized. Great Vessels The aortic root is normal size. Pericardium/Pleura There is a mild pericardial effusion. Summary Statements The left ventricular size, thickness and function are normal The left ventricular ejection fraction is normal. E/A reversal consistent with but not diagnostic of poor LV compliance The left ventricular wall motion is normal. There is mild mitral regurgitation. The study was technically difficult with many images being suboptimal in quality. There is a mild pericardial effusion. MD Alex Feng 05/15/2018, 4:53 PM Ordering Physician: Alex Feng Referring Physician: ALEX FENG Performed By: Evette Bhat
[2018-05-15] MEDS ORDERED: PIPERACILLIN/TAZOBACTAM 3.375 GM VIAL IVPB ONE (17:00)
[2018-05-15] MEDS ORDERED: DEXTROSE 5%-WATER - 50 ML IVPB ONE (17:00)
[2018-05-15] MEDS: LACTATED RINGERS SOLUTION 1,000 ML/1,000 ML INFUS.BAG IV SCH ×2 (17:10→18:44)
[2018-05-15] MEDS: PANTOPRAZOLE SODIUM 40 MG VIAL IVPUSH SCH ×2 (17:12→21:35)
[2018-05-15 18:40] VITALS: BMI 25.1
[2018-05-15] MEDS: KCL 10 MEQ IVPB 10 MEQ/100 ML INFUS.BAG IVPB SCH (21:32)
[2018-05-15] MEDS: METOPROLOL TARTRATE 5 MG/5 ML VIAL IVPB SCH (21:33)
[2018-05-15] MEDS: ACETAMINOPHEN 1000 MG/100 ML VIAL (NON FORMULARY) IVPB SCH (23:25)
[2018-05-16] MEDS ORDERED: DEXTROSE 5%-WATER - 50 ML IVPB ONE ×4 (00:17→22:52)
[2018-05-16] MEDS ORDERED: PIPERACILLIN/TAZOBACTAM 3.375 GM VIAL IVPB ONE ×4 (00:17→22:52)
[2018-05-16] MEDS: morphine SULFATE 4 MG/ML VIAL IVPUSH PRN ×3 (00:27→17:32)
[2018-05-16] MEDS: PIPERACILLIN/TAZOB 3.375 GM 3.375 GM in DEXTROSE 5%-WATER - 50 ML IVPB SCH ×4 (01:13→17:21)
[2018-05-16] MEDS: KCL 10 MEQ IVPB 10 MEQ/100 ML INFUS.BAG IVPB SCH ×3 (01:13→21:42)
[2018-05-16] MEDS ORDERED: PT OWN MED DRAWER 7, Y5N ONE (02:44)
[2018-05-16] MEDS: METOPROLOL TARTRATE 5 MG/5 ML VIAL IVPB SCH ×3 (03:10→18:30)
[2018-05-16] MEDS: ACETAMINOPHEN 1000 MG/100 ML VIAL (NON FORMULARY) IVPB SCH ×5 (05:45→23:07)
[2018-05-16] MEDS: ONDANSETRON 4 MG/2 ML VIAL IVPUSH SCH ×3 (05:46→21:43)
[2018-05-16 08:02] LABS: BASO % 0.7 % (0-2.0); EOS % 4.3 % (0-4.5); HEMATOCRIT 41.6 % (35.4-49); HEMOGLOBIN 13.7 GM/dL (11.7-16.9); LYMPH % 11.2 % (8-40); MCH 28.3 pg (25.7-33.7); MCHC 32.8 g/dl (32.0-35.9); MEAN CELL VOLUME 86.1 fl (80-96); MEAN PLT VOLUME 9.8 fl (7.5-11.1); MONO % 35.1 % (3.8-10.2); NEUT % 48.7 % (42.8-82.8); PLATELET COUNT 152 K/MM3 (134-434); RBC 4.84 M/mm3 (4.00-5.60); RDW 13.4 % (11.9-15.9); WHITE BLOOD COUNT 11.1 K/mm3 (4.0-10.0)
[2018-05-16 08:25] LABS: ANION GAP 8 MMOL/L (8-16); BLOOD UREA NITROGEN 12 mg/dL (7-18); CALCIUM 8.6 mg/dL (8.5-10.1); CHLORIDE 105 mmol/L (98-107); CHOLESTEROL 109 mg/dL (50-200); CO2 26 mmol/L (21-32); CREATININE 1.3 mg/dL (0.55-1.3); GLUCOSE,RANDOM 101 mg/dL (74-106); HDL CHOLESTEROL 55 mg/dL (40-60); POTASSIUM 3.6 mmol/L (3.5-5.1); SODIUM 139 mmol/L (136-145); TRIGLYCERIDES 90 mg/dL (0-150)
[2018-05-16] MEDS: LACTATED RINGERS SOLUTION 1,000 ML/1,000 ML INFUS.BAG IV SCH ×2 (08:49→19:13)
--- NOTE | 2018-05-16 09:39 | PN ---
Progress Note, Physician Chief Complaint: Pt A&Ox3; weak; in intense pain (abdomen). History of Present Illness: 77 year old man (mathieu Aleman) with past medical history of HTN, HLD, PUD, lung CA and prostate CA (remission for 13 yrs) inguinal hernia repair, umbilical hernia repair and polyneuropathy 2/2 chemotherapy, diastolic CHF ( stable), who presents with abdominal pain and vomiting that started this AM. The patient reports that when he woke up he had epigastric abdominal pain that was dull and would come and go and become sharp but nonradiating, approx 2 hours after the pain started he began having NBNB vomiting and states that he cannot count the number of episodes of vomiting he has had. He has never had this pain before but notes a history of peptic ulcer bleed 50 years ago that had healed. Since this AM the patient has had 1x normal well formed bowel movements that was nonbloody and has been passing gas. The patient denies a prior history of small bowel obstruction. The patient denies any fevers. The patient denies any other family members having similar symptoms, denies recent travel. Denies diarrhea or constipation, chest pain, shortness of breath, dysuria, or any other complaints at bedside. PMHX: as in HPI PSHX: inguinal hernia repair, umbilical hernia repair, appendectomy, prostate resection Meds: metoprolol, atorvastatin, ASA 81, amlodipine Allergies: none Tob: none Etoh: none Rec drugs: none - Current Medication List Current Medications: Active Medications Acetaminophen (Ofirmev Injection -) 1,000 mg IVPB Q6H [facility] Last Admin: 05/16/18 05:45 Dose: 1,000 mg Lactated Ringer's (Lactated Ringers Solution) 1,000 ml in 1,000 mls @ 100 mls/ hr IV ASDIR GINA Last Admin: 05/16/18 08:49 Dose: 100 mls/hr Piperacillin Sod/Tazobactam (Sod 3.375 gm/ Dextrose) 50 mls @ 100 mls/hr IVPB Q8H-IV GINA; Protocol Last Admin: 05/16/18 02:04 Dose: Not Given Metoprolol Tartrate (Lopressor Injection -) 5 mg IVPB Q8H GINA Last Admin: 05/16/18 03:10 Dose: 5 mg Morphine Sulfate (Morphine Sulfate) 4 mg IVPUSH Q4H PRN PRN Reason: PAIN LEVEL 8 - 10 Last Admin: 05/16/18 07:20 Dose: 4 mg Ondansetron HCl (Zofran Injection) 4 mg IVPUSH TID [facility] Last Admin: 05/16/18 05:46 Dose: 4 mg Pantoprazole Sodium (Protonix Iv) 40 mg IVPUSH BID [facility] Last Admin: 05/15/18 21:35 Dose: 40 mg - Objective Vital Signs: Vital Signs Temperature 97.7 F 05/16/18 06:00 Pulse Rate 59 L 05/16/18 06:00 Respiratory Rate 20 05/16/18 06:00 Blood Pressure 137/71 05/16/18 06:00 O2 Sat by Pulse Oximetry (%) 99 05/15/18 21:00 Constitutional: Yes: Anxious, Moderate Distress Eyes: Yes: WNL HENT: Yes: WNL Neck: Yes: WNL Cardiovascular: Yes: S1, S2, S4 Respiratory: Yes: WNL Gastrointestinal: Yes: Tenderness ...Rectal Exam: Yes: Deferred Genitourinary: No: Anuria Musculoskeletal: Yes: WNL Extremities: Yes: WNL Edema: Yes Peripheral Pulses WNL: Yes Integumentary: Yes: WNL Neurological: Yes: WNL Labs: CBC, BMP 05/16/18 07:00 05/16/18 07:00 INR, PTT INR 1.02 (0.83-1.09) 05/14/18 16:57 Abnormal Lab Results 05/17/18 05/17/18 07:08 07:08 Monocytes % 17.2 H Eosinophils % 6.0 H Random Glucose 65 L Problem List - Problems (1) Epigastric pain Code(s): R10.13 - EPIGASTRIC PAIN (2) H/O prostate cancer Code(s): Z85.46 - PERSONAL HISTORY OF MALIGNANT NEOPLASM OF PROSTATE (3) History of lobectomy of lung Code(s): Z90.2 - ACQUIRED ABSENCE OF LUNG [PART OF] (4) History of lung cancer Code(s): Z85.118 - PERSONAL HISTORY OF MALIGNANT NEOPLASM OF BRONCHUS AND LUNG (5) Hypovolemia associated with vomiting Code(s): E86.1 - HYPOVOLEMIA (6) Small bowel obstruction Assessment/Plan: Pt being followed by GI: for abdominal images this morning. Code(s): K56.609 - UNSP INTESTNL OBST, UNSP TO PARTIAL VERSUS COMPLETE OBST (7) Chronic diastolic (congestive) heart failure Assessment/Plan: ECHO: normal LVEF. Has been on amlodipine and metorprolol in the past; all PO meds held due to SBO. Code(s): I50.32 - CHRONIC DIASTOLIC (CONGESTIVE) HEART FAILURE
[2018-05-16] MEDS ORDERED: PIPERACILLIN/TAZOB 3.375 GM 3.375 GM in DEXTROSE 5%-WATER - 50 ML IVPB SCH (10:00)
[2018-05-16] MEDS: PANTOPRAZOLE SODIUM 40 MG VIAL IVPUSH SCH ×2 (10:33→21:43)
--- NOTE | 2018-05-16 13:01 | PN ---
Progress Note, Physician History of Present Illness: Pt addominal distention better passing flatus Less pain - Current Medication List Current Medications: Active Medications Acetaminophen (Ofirmev Injection -) 1,000 mg IVPB Q6H COUNT [facility]CLUDES [facility] Last Admin: 05/16/18 12:34 Dose: 1,000 mg Lactated Ringer's (Lactated Ringers Solution) 1,000 ml in 1,000 mls @ 100 mls/ hr IV [facility] Last Admin: 05/16/18 08:49 Dose: 100 mls/hr Piperacillin Sod/Tazobactam (Sod 3.375 gm/ Dextrose) 50 mls @ 100 mls/hr IVPB Q8H-IV [facility]; Protocol Last Admin: 05/16/18 10:33 Dose: 100 mls/hr Metoprolol Tartrate (Lopressor Injection -) 5 mg IVPB Q8H [facility]CLUD[facility] Last Admin: 05/16/18 11:54 Dose: 5 mg Morphine Sulfate (Morphine Sulfate) 4 mg IVPUSH Q4H PRN PRN Reason: PAIN LEVEL 8 - 10 Last Admin: 05/16/18 07:20 Dose: 4 mg Ondansetron HCl (Zofran Injection) 4 mg IVPUSH TID [facility]CLUDES [facility] Last Admin: 05/16/18 05:46 Dose: 4 mg Pantoprazole Sodium (Protonix Iv) 40 mg IVPUSH BID [facility]CLUD[facility] Last Admin: 05/16/18 10:33 Dose: 40 mg - Objective Vital Signs: Vital Signs Temperature 98.0 F 05/16/18 09:00 Pulse Rate 72 05/16/18 11:54 Respiratory Rate 18 05/16/18 09:00 Blood Pressure 148/90 05/16/18 11:54 O2 Sat by Pulse Oximetry (%) 99 05/15/18 21:00 Constitutional: Yes: No Distress Eyes: Yes: Conjunctiva Clear, EOM Intact HENT: Yes: Atraumatic, Normocephalic Neck: Yes: Supple, Trachea Midline Cardiovascular: Yes: Regular Rate and Rhythm Respiratory: Yes: Regular, CTA Bilaterally Gastrointestinal: Yes: Normal Bowel Sounds, Soft Musculoskeletal: Yes: Back Pain Edema: No Labs: CBC, BMP 05/16/18 07:00 05/16/18 07:00 INR, PTT INR 1.02 (0.83-1.09) 05/14/18 16:57 Problem List - Problems (1) Small bowel obstruction Code(s): K56.609 - UNSP INTESTNL OBST, UNSP TO PARTIAL VERSUS COMPLETE OBST (2) History of lung cancer Code(s): Z85.118 - PERSONAL HISTORY OF MALIGNANT NEOPLASM OF BRONCHUS AND LUNG (3) History of lobectomy of lung Code(s): Z90.2 - ACQUIRED ABSENCE OF LUNG [PART OF] (4) Hypovolemia associated with vomiting Code(s): E86.1 - HYPOVOLEMIA (5) Small bowel obstruction due to adhesions Code(s): K56.50 - INTESTNL ADHESIONS, UNSP TO PARTIAL VERSUS COMPLETE OBST (6) Nausea and vomiting Code(s): R11.2 - NAUSEA WITH VOMITING, UNSPECIFIED Qualifiers: Vomiting type: unspecified Vomiting Intractability: non-intractable Qualified Code(s): R11.2 - Nausea with vomiting, unspecified Assessment/Plan (1) Small bowel obstruction: NGT/IVfluids Code(s): K56.609 - UNSP INTESTNL OBST, UNSP TO PARTIAL VERSUS COMPLETE OBST (2) History of lung cancer Code(s): Z85.118 - PERSONAL HISTORY OF MALIGNANT NEOPLASM OF BRONCHUS AND LUNG (3) History of lobectomy of lung Code(s): Z90.2 - ACQUIRED ABSENCE OF LUNG [PART OF] (4) Hypovolemia associated with vomiting Code(s): E86.1 - HYPOVOLEMIA (5) Small bowel obstruction due to adhesions Code(s): K56.50 - INTESTNL ADHESIONS, UNSP TO PARTIAL VERSUS COMPLETE OBST (6) Nausea and vomiting Code(s): R11.2 - NAUSEA WITH VOMITING, UNSPECIFIED Qualifiers: Vomiting type: unspecified Vomiting Intractability: non-intractable Qualified Code(s): R11.2 - Nausea with vomiting, unspecified 7) Sepsis/Immunocompramised with ca Lung/Ca prostate: IV zosyn 8) PUD with Gastritis: IV Protonix 8) HTN: IV Metoprolol as Pt is on NG suction Pt is better Passing flatus KUB: Better with partial resolution FU labs and KUB in AM
--- NOTE | 2018-05-16 16:46 | CON.ID ---
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 Denies diarrhea or constipation, chest pain, shortness of breath, dysuria, or any other complaints at bedside. 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) Cardio/Vascular: Yes: HTN, Hyperlipdemia Pulmonary: Yes: Cancer ([facility]) Gastrointestinal: Yes: GI Bleed (bleeding ulcer 50 yrs ago), Peptic Ulcer Disease (bled 50 yrs ago) Renal/: Yes: Cancer (prostate s/p prostatectomy) - Past Surgical History Past Surgical History: Yes: Appendectomy (right paramedian scar), Hernia Repair (umbilical and left inguinal), Prostatectomy (lower midline pelvic scar) Additional Surgical History: left upper lung lobectomy - Alcohol/Substance Use Hx Alcohol Use: No History of Substance Use: reports: None - Smoking History Smoking history: Never smoked Have you smoked in the past 12 months: No Aproximately how many cigarettes per day: 0 If you are a former smoker, when did you quit?: ~10 pk-yr hx from teens to 25yo - Social History Usual Living Arrangement: With Spouse ADL: Independent Home Medications - Allergies Allergies/Adverse Reactions: Allergies Allergy/AdvReac Type Severity Reaction Status Date / Time No Known Allergies Allergy Verified 05/14/18 13:35 - Home Medications Home Medications: Ambulatory Orders Amlodipine Besylate [Norvasc] 10 mg PO DAILY 06/26/12 Metoprolol Tartrate [Lopressor] 50 mg PO DAILY 06/26/12 Aspirin [Aspirin EC] 81 mg PO DAILY 05/14/18 Atorvastatin Ca [Lipitor] 10 mg PO HS 05/14/18 Tramadol HCl 50 mg PO TID PRN 05/14/18 Family Disease History - Family Disease History Family Disease History: Heart Disease: Father ( of enlarged heart), CA: Grandparent (GM - liver, GF - asthma), Respiratory: Grandparent Review of Systems - Review of Systems Constitutional: reports: No Symptoms Eyes: reports: No Symptoms HENT: reports: No Symptoms Neck: reports: No Symptoms Cardiovascular: reports: No Symptoms Respiratory: reports: No Symptoms Gastrointestinal: reports: Abdominal Pain Genitourinary: reports: No Symptoms Musculoskeletal: reports: No Symptoms Integumentary: reports: No Symptoms Neurological: reports: No Symptoms Endocrine: reports: No Symptoms Hematology/Lymphatic: reports: No Symptoms Psychiatric: reports: No Symptoms Physical Exam Vital Signs: Vital Signs Temperature 98.3 F 05/16/18 13:29 Pulse Rate 62 05/16/18 13:29 Respiratory Rate 16 05/16/18 13:29 Blood Pressure 151/77 05/16/18 13:29 O2 Sat by Pulse Oximetry (%) 98 05/16/18 09:00 Constitutional: Yes: Well Nourished, Calm, Mild Distress Eyes: Yes: Conjunctiva Clear HENT: Yes: Atraumatic, Normocephalic Neck: Yes: Supple, Trachea Midline Cardiovascular: Yes: Regular Rate and Rhythm Respiratory: Yes: Regular, Poor Air Entry (at the bases) Gastrointestinal: Yes: Soft, Hypoactive Bowel Sounds, Vomiting, Other (ng tube in place) Musculoskeletal: Yes: WNL Extremities: Yes: WNL Neurological: Yes: Alert, Oriented Psychiatric: Yes: Alert, Oriented Labs: CBC, BMP 05/16/18 07:00 05/16/18 07:00 Imaging - Results Chest X-ray: Report Reviewed, Image Reviewed X-ray: Report Reviewed, Image Reviewed Cat Scan: Report Reviewed, Image Reviewed Assessment/Plan Problem List - Problems (1) Small bowel obstruction Code(s): K56.609 - UNSP INTESTNL OBST, UNSP TO PARTIAL VERSUS COMPLETE OBST (2) History of lung cancer Code(s): Z85.118 - PERSONAL HISTORY OF MALIGNANT NEOPLASM OF BRONCHUS AND LUNG (3) History of lobectomy of lung Code(s): Z90.2 - ACQUIRED ABSENCE OF LUNG [PART OF] (4) Hypovolemia associated with vomiting Code(s): E86.1 - HYPOVOLEMIA (5) Small bowel obstruction due to adhesions Code(s): K56.50 - INTESTNL ADHESIONS, UNSP TO PARTIAL VERSUS COMPLETE OBST (6) Nausea and vomiting Code(s): R11.2 - NAUSEA WITH VOMITING, UNSPECIFIED Qualifiers: Vomiting type: unspecified Vomiting Intractability: non-intractable Qualified Code(s): R11.2 - Nausea with vomiting, unspecified Assessment/Plan (1) Small bowel obstruction: NGT/IVfluids Code(s): K56.609 - UNSP INTESTNL OBST, UNSP TO PARTIAL VERSUS COMPLETE OBST (2) History of lung cancer Code(s): Z85.118 - PERSONAL HISTORY OF MALIGNANT NEOPLASM OF BRONCHUS AND LUNG (3) History of lobectomy of lung Code(s): Z90.2 - ACQUIRED ABSENCE OF LUNG [PART OF] (4) Hypovolemia associated with vomiting Code(s): E86.1 - HYPOVOLEMIA (5) Small bowel obstruction due to adhesions Code(s): K56.50 - INTESTNL ADHESIONS, UNSP TO PARTIAL VERSUS COMPLETE OBST (6) Nausea and vomiting Code(s): R11.2 - NAUSEA WITH VOMITING, UNSPECIFIED Qualifiers: Vomiting type: unspecified Vomiting Intractability: non-intractable Qualified Code(s): R11.2 - Nausea with vomiting, unspecified 7 leukocytosis patient who has multiple medical problems and who is immunocompromised comes in with leukocytosis,sbo and abd pain and with ng tube plan will start on zosyn surgery on case hydration rest as per the team
--- NOTE | 2018-05-16 17:25 | PN ---
Progress Note, Physician History of Present Illness: Pt with SBO s/p multiple abdominal surgeries. NPO with NGT decompression, barely 200ml light brown fluid out since yesterday, on IVF. Pt still with pain, comes and goes - responded to morphine after tylenol last night, but tylenol this am was sufficient. Mostly in left side now. Passing gas but no BM yet. Abdomen less distended. No overnight events. AXR this morning showed NG in stomach, not read yet but shows air in transverse colon, no significantly air- filled small bowel loops, but CT had shown fluid-filled loops, hard to follow by plain film without contrast. Pt was up in chair for a while, just got back to bed. Seen in his room. - Current Medication List Current Medications: Active Medications Acetaminophen (Ofirmev Injection -) 1,000 mg IVPB Q6H [facility] Last Admin: 05/16/18 12:34 Dose: 1,000 mg Lactated Ringer's (Lactated Ringers Solution) 1,000 ml in 1,000 mls @ 100 mls/ hr IV [facility] Last Admin: 05/16/18 08:49 Dose: 100 mls/hr Piperacillin Sod/Tazobactam (Sod 3.375 gm/ Dextrose) 50 mls @ 100 mls/hr IVPB Q8H-IV [facility]; Protocol Last Admin: 05/16/18 10:33 Dose: 100 mls/hr Metoprolol Tartrate (Lopressor Injection -) 5 mg IVPB Q8H [facility] Last Admin: 05/16/18 11:54 Dose: 5 mg Morphine Sulfate (Morphine Sulfate) 4 mg IVPUSH Q4H PRN PRN Reason: PAIN LEVEL 8 - 10 Last Admin: 05/16/18 07:20 Dose: 4 mg Ondansetron HCl (Zofran Injection) 4 mg IVPUSH TID [facility] Last Admin: 05/16/18 13:55 Dose: 4 mg Pantoprazole Sodium (Protonix Iv) 40 mg IVPUSH BID [facility] Last Admin: 05/16/18 10:33 Dose: 40 mg - Objective Vital Signs: Vital Signs Temperature 98.3 F 05/16/18 13:29 Pulse Rate 62 05/16/18 13:29 Respiratory Rate 16 05/16/18 13:29 Blood Pressure 151/77 05/16/18 13:29 O2 Sat by Pulse Oximetry (%) 98 05/16/18 09:00 Constitutional: Yes: Well Nourished, No Distress, Calm Eyes: Yes: Conjunctiva Clear, EOM Intact HENT: Yes: Atraumatic, Normocephalic, Other (NG in place, sumped with syringe, only 100-200ml output on floor since arriving) Cardiovascular: Yes: Regular Rate and Rhythm Gastrointestinal: Yes: Soft, Distention (less - not over chest level), Hernia ( midline periumbilical/incisional defect palpable), Hypoactive Bowel Sounds, Tenderness (diffuse mild, more LLQ, L midabdomen, less epigastric), Tenderness, Epigastrium (mild only, less than before). No: Tenderness, Rebound Extremities: No: Cool, Cyanosis Integumentary: No: Jaundice, Rash Neurological: Yes: Alert, Oriented Labs: CBC, BMP 05/16/18 07:00 05/16/18 07:00 BUN down further K up a bit but still low wbc down - ....Imaging X-ray: Image Reviewed (images personally reviewed - no free air, no sig dilated/ air-filled small bowel loops, air present in colon (see hpi)) Problem List - Problems (1) Small bowel obstruction due to adhesions Assessment/Plan: continue NPO/NGT/IVF replete lytes prn trend labs pain meds - scheduled IV Tylenol with morphine prn for breakthrough GI/DVT prophylaxis hold aspirin and home/ALL po meds until NG out/taking po again serial exams - somewhat improved distention, still with some pain and tenderness , passing gas NG output decreased serial AXR - difficult to follow fluid-filled bowel loops without contrast will put contrast down NGT and check AXR tonight f/u AXR ordered for am as well if contrast not in colon by morning, would repeat CT to reassess site and degree of obstruction pt is aware that surgery could still be needed, if there is no resolution with conservative treatment Code(s): K56.50 - INTESTNL ADHESIONS, UNSP TO PARTIAL VERSUS COMPLETE OBST (2) Epigastric pain Code(s): R10.13 - EPIGASTRIC PAIN (3) Hypovolemia associated with vomiting Code(s): E86.1 - HYPOVOLEMIA (4) Nausea and vomiting Code(s): R11.2 - NAUSEA WITH VOMITING, UNSPECIFIED Qualifiers: Vomiting type: unspecified Vomiting Intractability: non-intractable Qualified Code(s): R11.2 - Nausea with vomiting, unspecified (5) History of lung cancer Assessment/Plan: s/p left upper lobectomy, chemo Code(s): Z85.118 - PERSONAL HISTORY OF MALIGNANT NEOPLASM OF BRONCHUS AND LUNG (6) H/O prostate cancer Assessment/Plan: s/p prostatectomy, denies radiation or chemo for this Code(s): Z85.46 - PERSONAL HISTORY OF MALIGNANT NEOPLASM OF PROSTATE
[2018-05-16] MEDS: HEPARIN NA (PORCINE) 5,000 UNITS/ML 1ML VIAL SQ SCH (21:42)
[2018-05-17] MEDS: morphine SULFATE 4 MG/ML VIAL IVPUSH PRN ×2 (01:05→12:26)
[2018-05-17] MEDS: PIPERACILLIN/TAZOB 3.375 GM 3.375 GM in DEXTROSE 5%-WATER - 50 ML IVPB SCH ×3 (01:08→18:18)
[2018-05-17] MEDS: METOPROLOL TARTRATE 5 MG/5 ML VIAL IVPB SCH ×3 (02:29→19:08)
[2018-05-17] MEDS: ACETAMINOPHEN 1000 MG/100 ML VIAL (NON FORMULARY) IVPB SCH ×2 (05:54→11:15)
[2018-05-17] MEDS: ONDANSETRON 4 MG/2 ML VIAL IVPUSH SCH ×3 (05:54→21:02)
[2018-05-17] MEDS: HEPARIN NA (PORCINE) 5,000 UNITS/ML 1ML VIAL SQ SCH ×3 (05:55→21:02)
[2018-05-17 08:13] LABS: BASO % 0.4 % (0-2.0); HEMATOCRIT 43.8 % (35.4-49); HEMOGLOBIN 14.5 GM/dL (11.7-16.9); MCH 28.6 pg (25.7-33.7); MCHC 33.1 g/dl (32.0-35.9); MEAN CELL VOLUME 86.5 fl (80-96); MEAN PLT VOLUME 10.2 fl (7.5-11.1); MONO % 17.2 % (3.8-10.2); NEUT % 57.4 % (42.8-82.8); PLATELET COUNT 167 K/MM3 (134-434); RBC 5.06 M/mm3 (4.00-5.60); RDW 13.3 % (11.9-15.9); WHITE BLOOD COUNT 9.6 K/mm3 (4.0-10.0)
[2018-05-17 08:31] LABS: ANION GAP 9 MMOL/L (8-16); BLOOD UREA NITROGEN 11 mg/dL (7-18); CALCIUM 9.2 mg/dL (8.5-10.1); CHLORIDE 103 mmol/L (98-107); CO2 25 mmol/L (21-32); CREATININE 1.3 mg/dL (0.55-1.3); GLUCOSE,RANDOM 65 mg/dL (74-106); MAGNESIUM 2.3 mg/dL (1.8-2.4); POTASSIUM 3.7 mmol/L (3.5-5.1); SODIUM 137 mmol/L (136-145)
[2018-05-17] MEDS ORDERED: DEXTROSE 5%-WATER - 50 ML IVPB ONE ×2 (11:07→18:15)
[2018-05-17] MEDS ORDERED: PIPERACILLIN/TAZOBACTAM 3.375 GM VIAL IVPB ONE ×2 (11:07→18:14)
[2018-05-17] MEDS: PANTOPRAZOLE SODIUM 40 MG VIAL IVPUSH SCH ×2 (11:14→21:02)
[2018-05-17] MEDS: D5-1/2NS+20 MEQ KCL - 20 MEQ/1,000 ML INFUS.BAG IV SCH (11:18)
--- NOTE | 2018-05-17 13:36 | PN ---
Progress Note, Physician History of Present Illness: starting to feel better xray done shows improvement plan to remove the ng tube passing gases - Current Medication List Current Medications: Active Medications Acetaminophen (Tylenol -) 650 mg PO Q6H PRN PRN Reason: Pain Level 4 - 10 Heparin Sodium (Porcine) (Heparin -) 5,000 unit SQ TID [facility] Last Admin: 05/17/18 05:55 Dose: 5,000 unit Piperacillin Sod/Tazobactam (Sod 3.375 gm/ Dextrose) 50 mls @ 100 mls/hr IVPB Q8H-IV [facility]; Protocol Last Admin: 05/17/18 11:14 Dose: 100 mls/hr Potassium Chloride/Dextrose/Sod Cl (D5-1/2ns+20 Meq Kcl -) 20 meq in 1,000 mls @ 100 mls/hr IV ASDIR [facility] Last Admin: 05/17/18 11:18 Dose: 100 mls/hr Metoprolol Tartrate (Lopressor Injection -) 5 mg IVPB Q8H [facility] Last Admin: 05/17/18 11:15 Dose: 5 mg Morphine Sulfate (Morphine Sulfate) 4 mg IVPUSH Q4H PRN PRN Reason: PAIN LEVEL 8 - 10 Last Admin: 05/17/18 12:26 Dose: 4 mg Ondansetron HCl (Zofran Injection) 4 mg IVPUSH TID [facility] Last Admin: 05/17/18 05:54 Dose: 4 mg Pantoprazole Sodium (Protonix Iv) 40 mg IVPUSH BID [facility] Last Admin: 05/17/18 11:14 Dose: 40 mg - Objective Vital Signs: Vital Signs Temperature 98 F 05/17/18 12:02 Pulse Rate 87 05/17/18 12:02 Respiratory Rate 18 05/17/18 12:02 Blood Pressure 156/82 05/17/18 12:02 O2 Sat by Pulse Oximetry (%) 98 05/16/18 21:00 Constitutional: Yes: No Distress, Calm Cardiovascular: Yes: Regular Rate and Rhythm Respiratory: Yes: Regular, CTA Bilaterally Gastrointestinal: Yes: Soft, Hypoactive Bowel Sounds, Other (ng tube in place) Musculoskeletal: Yes: WNL Extremities: Yes: WNL Neurological: Yes: Alert, Oriented Psychiatric: Yes: Alert, Oriented Labs: CBC, BMP 05/17/18 07:08 05/17/18 07:08 INR, PTT INR 1.02 (0.83-1.09) 05/14/18 16:57 Assessment/Plan Problem List - Problems (1) Small bowel obstruction Code(s): K56.609 - UNSP INTESTNL OBST, UNSP TO PARTIAL VERSUS COMPLETE OBST (2) History of lung cancer Code(s): Z85.118 - PERSONAL HISTORY OF MALIGNANT NEOPLASM OF BRONCHUS AND LUNG (3) History of lobectomy of lung Code(s): Z90.2 - ACQUIRED ABSENCE OF LUNG [PART OF] (4) Hypovolemia associated with vomiting Code(s): E86.1 - HYPOVOLEMIA (5) Small bowel obstruction due to adhesions Code(s): K56.50 - INTESTNL ADHESIONS, UNSP TO PARTIAL VERSUS COMPLETE OBST (6) Nausea and vomiting Code(s): R11.2 - NAUSEA WITH VOMITING, UNSPECIFIED Qualifiers: Vomiting type: unspecified Vomiting Intractability: non-intractable Qualified Code(s): R11.2 - Nausea with vomiting, unspecified Assessment/Plan (1) Small bowel obstruction: NGT/IVfluids Code(s): K56.609 - UNSP INTESTNL OBST, UNSP TO PARTIAL VERSUS COMPLETE OBST (2) History of lung cancer Code(s): Z85.118 - PERSONAL HISTORY OF MALIGNANT NEOPLASM OF BRONCHUS AND LUNG (3) History of lobectomy of lung Code(s): Z90.2 - ACQUIRED ABSENCE OF LUNG [PART OF] (4) Hypovolemia associated with vomiting Code(s): E86.1 - HYPOVOLEMIA (5) Small bowel obstruction due to adhesions Code(s): K56.50 - INTESTNL ADHESIONS, UNSP TO PARTIAL VERSUS COMPLETE OBST (6) Nausea and vomiting Code(s): R11.2 - NAUSEA WITH VOMITING, UNSPECIFIED Qualifiers: Vomiting type: unspecified Vomiting Intractability: non-intractable Qualified Code(s): R11.2 - Nausea with vomiting, unspecified 7 leukocytosis patient who has multiple medical problems and who is immunocompromised comes in with leukocytosis,sbo and abd pain and with ng tube plan continue abx once patient starts on diet can stop abx rest as per the team improving
--- NOTE | 2018-05-17 20:42 | PN ---
Progress Note, Physician History of Present Illness: Pt addominal distention better passing flatus Less pain Pt is improving clear liquid - Current Medication List Current Medications: Active Medications Acetaminophen (Tylenol -) 650 mg PO Q6H PRN PRN Reason: Pain Level 4 - 10 Heparin Sodium (Porcine) (Heparin -) 5,000 unit SQ TID [facility] Last Admin: 05/17/18 14:07 Dose: 5,000 unit Piperacillin Sod/Tazobactam (Sod 3.375 gm/ Dextrose) 50 mls @ 100 mls/hr IVPB Q8H-IV [facility]; Protocol Last Admin: 05/17/18 18:18 Dose: 100 mls/hr Potassium Chloride/Dextrose/Sod Cl (D5-1/2ns+20 Meq Kcl -) 20 meq in 1,000 mls @ 100 mls/hr IV [facility] Last Admin: 05/17/18 11:18 Dose: 100 mls/hr Metoprolol Tartrate (Lopressor Injection -) 5 mg IVPB Q8H [facility] Last Admin: 05/17/18 19:08 Dose: 5 mg Morphine Sulfate (Morphine Sulfate) 4 mg IVPUSH Q4H PRN PRN Reason: PAIN LEVEL 8 - 10 Last Admin: 05/17/18 12:26 Dose: 4 mg Ondansetron HCl (Zofran Injection) 4 mg IVPUSH TID [facility] Last Admin: 05/17/18 16:08 Dose: 4 mg Pantoprazole Sodium (Protonix Iv) 40 mg IVPUSH BID [facility] Last Admin: 05/17/18 11:14 Dose: 40 mg - Objective Vital Signs: Vital Signs Temperature 97.8 F 05/17/18 18:00 Pulse Rate 70 05/17/18 19:08 Respiratory Rate 19 05/17/18 18:00 Blood Pressure 145/82 05/17/18 19:08 O2 Sat by Pulse Oximetry (%) 98 05/17/18 09:00 Constitutional: Yes: No Distress Eyes: Yes: Conjunctiva Clear, EOM Intact HENT: Yes: Atraumatic, Normocephalic Neck: Yes: Supple, Trachea Midline Cardiovascular: Yes: Regular Rate and Rhythm, S1, S2 Respiratory: Yes: Regular, CTA Bilaterally Gastrointestinal: Yes: Soft, Other (Less ditended) Edema: No Labs: CBC, BMP 05/17/18 07:08 05/17/18 07:08 INR, PTT INR 1.02 (0.83-1.09) 05/14/18 16:57 Problem List - Problems (1) Small bowel obstruction Code(s): K56.609 - UNSP INTESTNL OBST, UNSP TO PARTIAL VERSUS COMPLETE OBST (2) History of lung cancer Code(s): Z85.118 - PERSONAL HISTORY OF MALIGNANT NEOPLASM OF BRONCHUS AND LUNG (3) History of lobectomy of lung Code(s): Z90.2 - ACQUIRED ABSENCE OF LUNG [PART OF] (4) Hypovolemia associated with vomiting Code(s): E86.1 - HYPOVOLEMIA (5) Small bowel obstruction due to adhesions Code(s): K56.50 - INTESTNL ADHESIONS, UNSP TO PARTIAL VERSUS COMPLETE OBST (6) Nausea and vomiting Code(s): R11.2 - NAUSEA WITH VOMITING, UNSPECIFIED Qualifiers: Vomiting type: unspecified Vomiting Intractability: non-intractable Qualified Code(s): R11.2 - Nausea with vomiting, unspecified Assessment/Plan (1) Small bowel obstruction: NGT/IVfluids Code(s): K56.609 - UNSP INTESTNL OBST, UNSP TO PARTIAL VERSUS COMPLETE OBST (2) History of lung cancer Code(s): Z85.118 - PERSONAL HISTORY OF MALIGNANT NEOPLASM OF BRONCHUS AND LUNG (3) History of lobectomy of lung Code(s): Z90.2 - ACQUIRED ABSENCE OF LUNG [PART OF] (4) Hypovolemia associated with vomiting Code(s): E86.1 - HYPOVOLEMIA (5) Small bowel obstruction due to adhesions Code(s): K56.50 - INTESTNL ADHESIONS, UNSP TO PARTIAL VERSUS COMPLETE OBST (6) Nausea and vomiting Code(s): R11.2 - NAUSEA WITH VOMITING, UNSPECIFIED Qualifiers: Vomiting type: unspecified Vomiting Intractability: non-intractable Qualified Code(s): R11.2 - Nausea with vomiting, unspecified 7) Sepsis/Immunocompramised with ca Lung/Ca prostate: IV zosyn 8) PUD with Gastritis: IV Protonix 8) HTN: IV Metoprolol as Pt is on NG suction Pt is better Passing flatus KUB: Better with partial resolution Labs better Pt will try clear liquids
[2018-05-17] MEDS: ACETAMINOPHEN 325 MG TABLET (FP) PO PRN (21:01)
--- NOTE | 2018-05-17 21:47 | PN ---
Progress Note, Physician History of Present Illness: Pt with SBO s/p multiple abdominal surgeries. Was NPO with NGT decompression, on IVF. AXR after enteral contrast last night and this am show all contrast in colon, and pt has had BMs today. Pt still with occasional epigastric pain, abdomen not distended. No overnight events. He has been ambulating, up in chair , NG was removed earlier today after AXR. Tolerated clears for dinner. Feeling better overall. Tylenol prn changed to po. - Current Medication List Current Medications: Active Medications Acetaminophen (Tylenol -) 650 mg PO Q6H PRN PRN Reason: Pain Level 4 - 10 Last Admin: 05/17/18 21:01 Dose: 650 mg Heparin Sodium (Porcine) (Heparin -) 5,000 unit SQ TID [facility] Last Admin: 05/17/18 21:02 Dose: 5,000 unit Piperacillin Sod/Tazobactam (Sod 3.375 gm/ Dextrose) 50 mls @ 100 mls/hr IVPB Q8H-IV [facility]; Protocol Last Admin: 05/17/18 18:18 Dose: 100 mls/hr Potassium Chloride/Dextrose/Sod Cl (D5-1/2ns+20 Meq Kcl -) 20 meq in 1,000 mls @ 100 mls/hr IV ASDIR [facility] Last Admin: 05/17/18 11:18 Dose: 100 mls/hr Metoprolol Tartrate (Lopressor Injection -) 5 mg IVPB Q8H [facility] Last Admin: 05/17/18 19:08 Dose: 5 mg Morphine Sulfate (Morphine Sulfate) 4 mg IVPUSH Q4H PRN PRN Reason: PAIN LEVEL 8 - 10 Last Admin: 05/17/18 12:26 Dose: 4 mg Ondansetron HCl (Zofran Injection) 4 mg IVPUSH TID [facility] Last Admin: 05/17/18 21:02 Dose: 4 mg Pantoprazole Sodium (Protonix Iv) 40 mg IVPUSH BID [facility] Last Admin: 05/17/18 21:02 Dose: 40 mg - Objective Vital Signs: Vital Signs Temperature 97.8 F 05/17/18 18:00 Pulse Rate 70 05/17/18 19:08 Respiratory Rate 19 05/17/18 18:00 Blood Pressure 145/82 05/17/18 19:08 O2 Sat by Pulse Oximetry (%) 98 05/17/18 09:00 Constitutional: Yes: Well Nourished, No Distress, Calm Eyes: Yes: Conjunctiva Clear, EOM Intact HENT: Yes: Atraumatic, Normocephalic Gastrointestinal: Yes: Normal Bowel Sounds, Soft, Hernia (small midline defect palpable), Tenderness (minimal LUQ only). No: Distention (minimal), Tenderness , Epigastrium, Tenderness, Rebound Musculoskeletal: No: Joint Stiffness, Joint Swelling Extremities: No: Cool, Cyanosis Integumentary: No: Jaundice, Rash Neurological: Yes: Alert, Oriented Labs: CBC, BMP 05/17/18 07:08 05/17/18 07:08 fluids changed to D5 1/2 NS + 20 KCl - ....Imaging X-ray: Report Reviewed, Image Reviewed (images personally reviewed - contrast decreased and all in colon, being evacuated; no sb distention or contrast, obstruction resolved) Problem List - Problems (1) Small bowel obstruction due to adhesions Assessment/Plan: obstruction resolved pt feeling better now tolerating clears and with good bowel function will advance to fulls for breakfast, may have diet for lunch or dinner as tolerated at discretion of primary team no need for surgical intervention will sign off - please recall as needed Thank you for the opportunity to participate in the care of this patient. Code(s): K56.50 - INTESTNL ADHESIONS, UNSP TO PARTIAL VERSUS COMPLETE OBST (2) History of lung cancer Assessment/Plan: s/p left upper lobectomy, chemo Code(s): Z85.118 - PERSONAL HISTORY OF MALIGNANT NEOPLASM OF BRONCHUS AND LUNG (3) H/O prostate cancer Assessment/Plan: s/p prostatectomy, denies radiation or chemo for this Code(s): Z85.46 - PERSONAL HISTORY OF MALIGNANT NEOPLASM OF PROSTATE
[2018-05-18] MEDS: D5-1/2NS+20 MEQ KCL - 20 MEQ/1,000 ML INFUS.BAG IV SCH ×2 (00:19→10:59)
[2018-05-18] MEDS ORDERED: PIPERACILLIN/TAZOBACTAM 3.375 GM VIAL IVPB ONE ×3 (02:07→18:07)
[2018-05-18] MEDS ORDERED: DEXTROSE 5%-WATER - 50 ML IVPB ONE ×3 (02:07→18:08)
[2018-05-18] MEDS: morphine SULFATE 4 MG/ML VIAL IVPUSH PRN ×2 (02:11→15:19)
[2018-05-18] MEDS: PIPERACILLIN/TAZOB 3.375 GM 3.375 GM in DEXTROSE 5%-WATER - 50 ML IVPB SCH ×3 (02:12→18:23)
[2018-05-18] MEDS: METOPROLOL TARTRATE 5 MG/5 ML VIAL IVPB SCH (06:10)
[2018-05-18] MEDS: ACETAMINOPHEN 325 MG TABLET (FP) PO PRN ×2 (06:13→22:01)
[2018-05-18] MEDS: HEPARIN NA (PORCINE) 5,000 UNITS/ML 1ML VIAL SQ SCH ×3 (06:51→22:02)
[2018-05-18] MEDS: ONDANSETRON 4 MG/2 ML VIAL IVPUSH SCH ×3 (06:51→22:01)
[2018-05-18 09:10] LABS: ANION GAP 8 MMOL/L (8-16); BLOOD UREA NITROGEN 8 mg/dL (7-18); CALCIUM 9.1 mg/dL (8.5-10.1); CHLORIDE 106 mmol/L (98-107); CO2 24 mmol/L (21-32); CREATININE 1.4 mg/dL (0.55-1.3); GLUCOSE,RANDOM 118 mg/dL (74-106); POTASSIUM 3.5 mmol/L (3.5-5.1); SODIUM 139 mmol/L (136-145)
[2018-05-18 09:16] LABS: BASO % 0.7 % (0-2.0); EOS % 8.2 % (0-4.5); HEMATOCRIT 42.9 % (35.4-49); HEMOGLOBIN 14.6 GM/dL (11.7-16.9); MCH 29.2 pg (25.7-33.7); MCHC 34.1 g/dl (32.0-35.9); MEAN CELL VOLUME 85.6 fl (80-96); MEAN PLT VOLUME 9.2 fl (7.5-11.1); MONO % 20.2 % (3.8-10.2); NEUT % 50.9 % (42.8-82.8); PLATELET COUNT 165 K/MM3 (134-434); RBC 5.01 M/mm3 (4.00-5.60); RDW 13.1 % (11.9-15.9); WHITE BLOOD COUNT 8.2 K/mm3 (4.0-10.0)
--- NOTE | 2018-05-18 10:04 | PN ---
Progress Note, Physician Chief Complaint: Cardiology for [facility] History of Present Illness: Diet advanced. No CP or SOB - Current Medication List Current Medications: Active Medications Acetaminophen (Tylenol -) 650 mg PO Q6H PRN PRN Reason: Pain Level 4 - 10 Last Admin: 05/18/18 06:13 Dose: 650 mg Heparin Sodium (Porcine) (Heparin -) 5,000 unit SQ TID [facility] Last Admin: 05/18/18 06:51 Dose: 5,000 unit Piperacillin Sod/Tazobactam (Sod 3.375 gm/ Dextrose) 50 mls @ 100 mls/hr IVPB Q8H-IV [facility]; Protocol Last Admin: 05/18/18 02:12 Dose: 100 mls/hr Potassium Chloride/Dextrose/Sod Cl (D5-1/2ns+20 Meq Kcl -) 20 meq in 1,000 mls @ 100 mls/hr IV ASDIR [facility] Last Admin: 05/18/18 00:19 Dose: 100 mls/hr Metoprolol Tartrate (Lopressor -) 25 mg PO BID [facility] Morphine Sulfate (Morphine Sulfate) 4 mg IVPUSH Q4H PRN PRN Reason: PAIN LEVEL 8 - 10 Last Admin: 05/18/18 02:11 Dose: 4 mg Ondansetron HCl (Zofran Injection) 4 mg IVPUSH TID [facility] Last Admin: 05/18/18 06:51 Dose: 4 mg Pantoprazole Sodium (Protonix Iv) 40 mg IVPUSH BID [facility] Last Admin: 05/17/18 21:02 Dose: 40 mg - Objective Vital Signs: Vital Signs Temperature 97.5 F L 05/18/18 05:30 Pulse Rate 58 L 05/18/18 06:10 Respiratory Rate 18 05/18/18 03:45 Blood Pressure 149/77 05/18/18 06:10 O2 Sat by Pulse Oximetry (%) 98 05/17/18 21:00 Constitutional: Yes: Calm Cardiovascular: Yes: Regular Rate and Rhythm Respiratory: Yes: CTA Bilaterally Gastrointestinal: Yes: Soft (+ bs) Edema: No Neurological: Yes: Alert, Oriented ...Motor Strength: WNL Labs: CBC, BMP 05/18/18 07:30 05/18/18 07:30 INR, PTT INR 1.02 (0.83-1.09) 05/14/18 16:57 Laboratory Tests 05/18/18 05/18/18 07:30 07:30 WBC 8.2 Hgb 14.6 Plt Count 165 Sodium 139 Potassium 3.5 Creatinine 1.4 H Assessment/Plan IMP: Resolving SBO Chronic HTN REC: 1. Rx of SBO as per Gen Surg, diet advance, NGT d/c'd 2. Resume oral Metoprol. Hold Ca2+ for now as may slow intestinal motility. 3. DVT prophylaxis as per Medical team Coverage for [facility]
[2018-05-18] MEDS: METOPROLOL TARTRATE 25 MG TABLET (FP) PO SCH ×2 (10:53→22:01)
[2018-05-18] MEDS: PANTOPRAZOLE SODIUM 40 MG VIAL IVPUSH SCH ×2 (10:59→22:01)
[2018-05-18 13:00] LABS: ANISOCYTOSIS 0; MACROCYTOSIS 0; PLATELET ESTIMATE NORMAL
--- NOTE | 2018-05-18 14:12 | PN ---
Progress Note, Physician History of Present Illness: Pt addominal distention better passing flatus Less pain Pt is improving clear liquid - Current Medication List Current Medications: Active Medications Acetaminophen (Tylenol -) 650 mg PO Q6H PRN PRN Reason: Pain Level 4 - 10 Last Admin: 05/18/18 06:13 Dose: 650 mg Heparin Sodium (Porcine) (Heparin -) 5,000 unit SQ TID [facility] Last Admin: 05/18/18 06:51 Dose: 5,000 unit Piperacillin Sod/Tazobactam (Sod 3.375 gm/ Dextrose) 50 mls @ 100 mls/hr IVPB Q8H-IV [facility]; Protocol Last Admin: 05/18/18 10:53 Dose: 100 mls/hr Potassium Chloride/Dextrose/Sod Cl (D5-1/2ns+20 Meq Kcl -) 20 meq in 1,000 mls @ 100 mls/hr IV ASDIR [facility] Last Admin: 05/18/18 10:59 Dose: 100 mls/hr Metoprolol Tartrate (Lopressor -) 25 mg PO BID [facility] Last Admin: 05/18/18 10:53 Dose: 25 mg Morphine Sulfate (Morphine Sulfate) 4 mg IVPUSH Q4H PRN PRN Reason: PAIN LEVEL 8 - 10 Last Admin: 05/18/18 02:11 Dose: 4 mg Ondansetron HCl (Zofran Injection) 4 mg IVPUSH TID [facility] Last Admin: 05/18/18 06:51 Dose: 4 mg Pantoprazole Sodium (Protonix Iv) 40 mg IVPUSH BID [facility] Last Admin: 05/18/18 10:59 Dose: 40 mg - Objective Vital Signs: Vital Signs Temperature 98.3 F 05/18/18 13:08 Pulse Rate 80 05/18/18 13:08 Respiratory Rate 18 05/18/18 13:08 Blood Pressure 142/80 05/18/18 13:08 O2 Sat by Pulse Oximetry (%) 98 05/17/18 21:00 Constitutional: Yes: No Distress Eyes: Yes: Conjunctiva Clear, EOM Intact HENT: Yes: Atraumatic, Normocephalic Neck: Yes: Supple, Trachea Midline Cardiovascular: Yes: Regular Rate and Rhythm, S1, S2 Respiratory: Yes: Regular, CTA Bilaterally Gastrointestinal: Yes: Normal Bowel Sounds, Soft Edema: No Labs: CBC, BMP 05/18/18 07:30 05/18/18 07:30 INR, PTT INR 1.02 (0.83-1.09) 05/14/18 16:57 Problem List - Problems (1) Small bowel obstruction Code(s): K56.609 - UNSP INTESTNL OBST, UNSP TO PARTIAL VERSUS COMPLETE OBST (2) History of lung cancer Code(s): Z85.118 - PERSONAL HISTORY OF MALIGNANT NEOPLASM OF BRONCHUS AND LUNG (3) History of lobectomy of lung Code(s): Z90.2 - ACQUIRED ABSENCE OF LUNG [PART OF] (4) Hypovolemia associated with vomiting Code(s): E86.1 - HYPOVOLEMIA (5) Small bowel obstruction due to adhesions Code(s): K56.50 - INTESTNL ADHESIONS, UNSP TO PARTIAL VERSUS COMPLETE OBST (6) Nausea and vomiting Code(s): R11.2 - NAUSEA WITH VOMITING, UNSPECIFIED Qualifiers: Vomiting type: unspecified Vomiting Intractability: non-intractable Qualified Code(s): R11.2 - Nausea with vomiting, unspecified Assessment/Plan (1) Small bowel obstruction: NGT/IVfluids Code(s): K56.609 - UNSP INTESTNL OBST, UNSP TO PARTIAL VERSUS COMPLETE OBST (2) History of lung cancer Code(s): Z85.118 - PERSONAL HISTORY OF MALIGNANT NEOPLASM OF BRONCHUS AND LUNG (3) History of lobectomy of lung Code(s): Z90.2 - ACQUIRED ABSENCE OF LUNG [PART OF] (4) Hypovolemia associated with vomiting Code(s): E86.1 - HYPOVOLEMIA (5) Small bowel obstruction due to adhesions Code(s): K56.50 - INTESTNL ADHESIONS, UNSP TO PARTIAL VERSUS COMPLETE OBST (6) Nausea and vomiting Code(s): R11.2 - NAUSEA WITH VOMITING, UNSPECIFIED Qualifiers: Vomiting type: unspecified Vomiting Intractability: non-intractable Qualified Code(s): R11.2 - Nausea with vomiting, unspecified 7) Sepsis/Immunocompramised with ca Lung/Ca prostate: IV zosyn 8) PUD with Gastritis: IV Protonix 8) HTN: IV Metoprolol as Pt is on NG suction Pt is better Passing flatus KUB: Better with partial resolution Labs better Pt will try clear liquids
--- NOTE | 2018-05-18 16:27 | PN ---
Progress Note, Physician History of Present Illness: Pt states overall he feels better. Has intermittent sharp pain for which he receives morphine. Remains afebrile. Having BMs. Currently on clear liquid diet. - Current Medication List Current Medications: Active Medications Acetaminophen (Tylenol -) 650 mg PO Q6H PRN PRN Reason: Pain Level 4 - 10 Last Admin: 05/18/18 06:13 Dose: 650 mg Heparin Sodium (Porcine) (Heparin -) 5,000 unit SQ TID [facility] Last Admin: 05/18/18 14:12 Dose: 5,000 unit Piperacillin Sod/Tazobactam (Sod 3.375 gm/ Dextrose) 50 mls @ 100 mls/hr IVPB Q8H-IV [facility]; Protocol Last Admin: 05/18/18 10:53 Dose: 100 mls/hr Potassium Chloride/Dextrose/Sod Cl (D5-1/2ns+20 Meq Kcl -) 20 meq in 1,000 mls @ 100 mls/hr IV ASDIR [facility] Last Admin: 05/18/18 10:59 Dose: 100 mls/hr Metoprolol Tartrate (Lopressor -) 25 mg PO BID [facility] Last Admin: 05/18/18 10:53 Dose: 25 mg Morphine Sulfate (Morphine Sulfate) 4 mg IVPUSH Q4H PRN PRN Reason: PAIN LEVEL 8 - 10 Last Admin: 05/18/18 15:19 Dose: 4 mg Ondansetron HCl (Zofran Injection) 4 mg IVPUSH TID [facility] Last Admin: 05/18/18 14:14 Dose: 4 mg Pantoprazole Sodium (Protonix Iv) 40 mg IVPUSH BID [facility] Last Admin: 05/18/18 10:59 Dose: 40 mg - Objective Vital Signs: Vital Signs Temperature 98.3 F 05/18/18 13:08 Pulse Rate 80 05/18/18 13:08 Respiratory Rate 18 05/18/18 13:08 Blood Pressure 142/80 05/18/18 13:08 O2 Sat by Pulse Oximetry (%) 98 05/17/18 21:00 Constitutional: Yes: No Distress, Calm Cardiovascular: Yes: Regular Rate and Rhythm Respiratory: Yes: Regular Gastrointestinal: Yes: Normal Bowel Sounds, Soft, Tenderness (mild pain with palpation) Labs: CBC, BMP 05/18/18 07:30 05/18/18 07:30 INR, PTT INR 1.02 (0.83-1.09) 05/14/18 16:57 Problem List - Problems (1) Small bowel obstruction Code(s): K56.609 - UNSP INTESTNL OBST, UNSP TO PARTIAL VERSUS COMPLETE OBST Assessment/Plan - on Zosyn - plan to d/c antibiotics if tolerates advancement of diet - surgery monitoring currently stable
--- NOTE | 2018-05-18 17:15 | PN ---
Progress Note, Physician History of Present Illness: Pt with SBO s/p multiple abdominal surgeries. Was NPO with NGT decompression, on IVF. AXR after enteral contrast showed all contrast in colon, and pt is having runny green BMs. Pt still with intermittent epigastric pain, abdomen not distended. No overnight events. He has been ambulating, up in chair. Tolerated fulls for breakfast and lunch without increase in pain. Took Tylenol ~6am with effect, but then with pain this afternoon, had morphine about an hour ago and is now sleeping. Wakes easily. - Current Medication List Current Medications: Active Medications Acetaminophen (Tylenol -) 650 mg PO Q6H PRN PRN Reason: Pain Level 4 - 10 Last Admin: 05/18/18 06:13 Dose: 650 mg Heparin Sodium (Porcine) (Heparin -) 5,000 unit SQ TID [facility] Last Admin: 05/18/18 14:12 Dose: 5,000 unit Piperacillin Sod/Tazobactam (Sod 3.375 gm/ Dextrose) 50 mls @ 100 mls/hr IVPB Q8H-IV [facility]; Protocol Last Admin: 05/18/18 10:53 Dose: 100 mls/hr Potassium Chloride/Dextrose/Sod Cl (D5-1/2ns+20 Meq Kcl -) 20 meq in 1,000 mls @ 100 mls/hr IV ASDIR [facility] Last Admin: 05/18/18 10:59 Dose: 100 mls/hr Metoprolol Tartrate (Lopressor -) 25 mg PO BID [facility] Last Admin: 05/18/18 10:53 Dose: 25 mg Morphine Sulfate (Morphine Sulfate) 4 mg IVPUSH Q4H PRN PRN Reason: PAIN LEVEL 8 - 10 Last Admin: 05/18/18 15:19 Dose: 4 mg Ondansetron HCl (Zofran Injection) 4 mg IVPUSH TID [facility] Last Admin: 05/18/18 14:14 Dose: 4 mg Pantoprazole Sodium (Protonix Iv) 40 mg IVPUSH BID [facility] Last Admin: 05/18/18 10:59 Dose: 40 mg - Objective Vital Signs: Vital Signs Temperature 98.3 F 05/18/18 13:08 Pulse Rate 80 05/18/18 13:08 Respiratory Rate 18 05/18/18 13:08 Blood Pressure 142/80 05/18/18 13:08 O2 Sat by Pulse Oximetry (%) 98 05/17/18 21:00 Constitutional: Yes: Well Nourished, No Distress, Calm Eyes: Yes: Conjunctiva Clear, EOM Intact HENT: Yes: Atraumatic, Normocephalic Gastrointestinal: Yes: Soft, Tenderness, Epigastrium. No: Distention, Tenderness, Rebound Extremities: No: Cool, Cyanosis Integumentary: No: Jaundice, Rash Neurological: Yes: Alert, Oriented. No: Unsteady Gait Labs: CBC, BMP 05/18/18 07:30 05/18/18 07:30 Cr up from 1.3 K low glucose better wbc normal, with increased monocytes/eosinophils Problem List - Problems (1) Small bowel obstruction due to adhesions Assessment/Plan: obstruction resolved pt feeling better now tolerating fulls and with good bowel function will advance to regular diet pt encouraged to use NONNARCOTICS FIRST-LINE for pain, and to get up and ambulate and/or use toilet when pain comes, to see if it is manageable without morphine if epigastric pain does not resolve, might consider GI to see no need for surgical intervention will sign off - please recall as needed Thank you for the opportunity to participate in the care of this patient. Code(s): K56.50 - INTESTNL ADHESIONS, UNSP TO PARTIAL VERSUS COMPLETE OBST (2) History of lung cancer Assessment/Plan: s/p left upper lobectomy, chemo Code(s): Z85.118 - PERSONAL HISTORY OF MALIGNANT NEOPLASM OF BRONCHUS AND LUNG (3) H/O prostate cancer Assessment/Plan: s/p prostatectomy, denies radiation or chemo for this Code(s): Z85.46 - PERSONAL HISTORY OF MALIGNANT NEOPLASM OF PROSTATE
[2018-05-19] MEDS ORDERED: PIPERACILLIN/TAZOBACTAM 3.375 GM VIAL IVPB ONE ×2 (00:13→10:18)
[2018-05-19] MEDS ORDERED: DEXTROSE 5%-WATER - 50 ML IVPB ONE ×2 (00:13→10:18)
[2018-05-19] MEDS: PIPERACILLIN/TAZOB 3.375 GM 3.375 GM in DEXTROSE 5%-WATER - 50 ML IVPB SCH ×2 (01:04→10:27)
[2018-05-19] MEDS: ONDANSETRON 4 MG/2 ML VIAL IVPUSH SCH ×3 (05:10→22:45)
[2018-05-19] MEDS: HEPARIN NA (PORCINE) 5,000 UNITS/ML 1ML VIAL SQ SCH ×3 (05:10→22:45)
[2018-05-19] MEDS: ACETAMINOPHEN 325 MG TABLET (FP) PO PRN (05:40)
[2018-05-19] MEDS ORDERED: traMADol HCL 50 MG TABLET PO ONE (06:45)
[2018-05-19] MEDS ORDERED: PT OWN MED DRAWER 7, Y5N ONE ×2 (10:18→20:16)
[2018-05-19] MEDS: PANTOPRAZOLE SODIUM 40 MG VIAL IVPUSH SCH ×2 (10:27→22:45)
[2018-05-19] MEDS: METOPROLOL TARTRATE 25 MG TABLET (FP) PO SCH ×2 (10:27→22:45)
[2018-05-19] MEDS: D5-1/2NS+20 MEQ KCL - 20 MEQ/1,000 ML INFUS.BAG IV SCH (10:28)
[2018-05-19] MEDS ORDERED: traMADol HCL 50 MG TABLET PO PRN (11:32)
--- NOTE | 2018-05-19 12:21 | PN ---
Progress Note, Physician History of Present Illness: Pt is moving his bowels No Abd pain No GI discomfort No Fever - Current Medication List Current Medications: Active Medications Acetaminophen (Tylenol -) 650 mg PO Q6H PRN PRN Reason: Pain Level 4 - 10 Last Admin: 05/19/18 05:40 Dose: 650 mg Heparin Sodium (Porcine) (Heparin -) 5,000 unit SQ TID [facility] Last Admin: 05/19/18 05:10 Dose: 5,000 unit Piperacillin Sod/Tazobactam (Sod 3.375 gm/ Dextrose) 50 mls @ 100 mls/hr IVPB Q8H-IV [facility]; Protocol Last Admin: 05/19/18 10:27 Dose: 100 mls/hr Potassium Chloride/Dextrose/Sod Cl (D5-1/2ns+20 Meq Kcl -) 20 meq in 1,000 mls @ 100 mls/hr IV ASDIR [facility] Last Admin: 05/19/18 10:28 Dose: 100 mls/hr Metoprolol Tartrate (Lopressor -) 25 mg PO BID [facility] Last Admin: 05/19/18 10:27 Dose: 25 mg Ondansetron HCl (Zofran Injection) 4 mg IVPUSH TID [facility] Last Admin: 05/19/18 05:10 Dose: 4 mg Pantoprazole Sodium (Protonix Iv) 40 mg IVPUSH BID [facility] Last Admin: 05/19/18 10:27 Dose: 40 mg Tramadol HCl (Ultram -) 50 mg PO Q8H-IV PRN PRN Reason: PAIN LEVEL 6-10 - Objective Vital Signs: Vital Signs Temperature 97.8 F 05/19/18 09:30 Pulse Rate 71 05/19/18 09:30 Respiratory Rate 18 05/19/18 09:30 Blood Pressure 152/85 05/19/18 09:30 O2 Sat by Pulse Oximetry (%) 95 05/18/18 21:00 Constitutional: Yes: Well Nourished, No Distress Eyes: Yes: Conjunctiva Clear, EOM Intact HENT: Yes: Atraumatic, Normocephalic Neck: Yes: Supple, Trachea Midline Cardiovascular: Yes: Regular Rate and Rhythm, S1, S2 Respiratory: Yes: Regular, CTA Bilaterally Gastrointestinal: Yes: Normal Bowel Sounds, Soft Edema: No Labs: CBC, BMP 05/18/18 07:30 05/18/18 07:30 INR, PTT INR 1.02 (0.83-1.09) 05/14/18 16:57 Problem List - Problems (1) Small bowel obstruction Code(s): K56.609 - UNSP INTESTNL OBST, UNSP TO PARTIAL VERSUS COMPLETE OBST (2) History of lung cancer Code(s): Z85.118 - PERSONAL HISTORY OF MALIGNANT NEOPLASM OF BRONCHUS AND LUNG (3) History of lobectomy of lung Code(s): Z90.2 - ACQUIRED ABSENCE OF LUNG [PART OF] (4) Hypovolemia associated with vomiting Code(s): E86.1 - HYPOVOLEMIA (5) Small bowel obstruction due to adhesions Code(s): K56.50 - INTESTNL ADHESIONS, UNSP TO PARTIAL VERSUS COMPLETE OBST (6) Nausea and vomiting Code(s): R11.2 - NAUSEA WITH VOMITING, UNSPECIFIED Qualifiers: Vomiting type: unspecified Vomiting Intractability: non-intractable Qualified Code(s): R11.2 - Nausea with vomiting, unspecified Assessment/Plan (1) Small bowel obstruction: NGT/IVfluids Code(s): K56.609 - UNSP INTESTNL OBST, UNSP TO PARTIAL VERSUS COMPLETE OBST (2) History of lung cancer Code(s): Z85.118 - PERSONAL HISTORY OF MALIGNANT NEOPLASM OF BRONCHUS AND LUNG (3) History of lobectomy of lung Code(s): Z90.2 - ACQUIRED ABSENCE OF LUNG [PART OF] (4) Hypovolemia associated with vomiting Code(s): E86.1 - HYPOVOLEMIA (5) Small bowel obstruction due to adhesions Code(s): K56.50 - INTESTNL ADHESIONS, UNSP TO PARTIAL VERSUS COMPLETE OBST (6) Nausea and vomiting Code(s): R11.2 - NAUSEA WITH VOMITING, UNSPECIFIED Qualifiers: Vomiting type: unspecified Vomiting Intractability: non-intractable Qualified Code(s): R11.2 - Nausea with vomiting, unspecified 7) Sepsis/Immunocompramised with ca Lung/Ca prostate: IV zosyn 8) PUD with Gastritis: IV Protonix 8) HTN: Metoprolol 25 PO BID Pt is tolerating liquids No Fever No abd pain DC IV fluids Pt is opiod dependent Put back on Tramadol
[2018-05-19] MEDS: traMADol HCL 50 MG TABLET PO PRN ×2 (13:24→22:45)
--- NOTE | 2018-05-19 14:44 | PN ---
Progress Note, Physician History of Present Illness: Pt with SBO s/p multiple abdominal surgeries. Was NPO with NGT decompression, on IVF. AXR after enteral contrast showed all contrast in colon, and pt is having BMs, turning more solid now that he is tolerating regular diet. Overnight , had very restless legs and leg pain. Home meds had not been resumed, but now have (on chronic Tramadol for years), with relief. [facility] has been ambulating, [facility] No further abdominal pain or tenderness. Distention resolved. - Current Medication List Current Medications: Active Medications Acetaminophen (Tylenol -) 650 mg PO Q6H PRN PRN Reason: Pain Level 4 - 10 Last Admin: 05/19/18 05:40 Dose: 650 mg Atorvastatin Calcium (Lipitor -) 10 mg PO HS [facility] Heparin Sodium (Porcine) (Heparin -) 5,000 unit SQ TID [facility] Last Admin: 05/19/18 13:24 Dose: 5,000 unit Piperacillin Sod/Tazobactam (Sod 3.375 gm/ Dextrose) 50 mls @ 100 mls/hr IVPB Q8H-IV [facility]; Protocol Last Admin: 05/19/18 10:27 Dose: 100 mls/hr Metoprolol Tartrate (Lopressor -) 25 mg PO BID [facility] Last Admin: 05/19/18 10:27 Dose: 25 mg Ondansetron HCl (Zofran Injection) 4 mg IVPUSH TID [facility] Last Admin: 05/19/18 13:24 Dose: 4 mg Pantoprazole Sodium (Protonix Iv) 40 mg IVPUSH BID [facility] Last Admin: 05/19/18 10:27 Dose: 40 mg Pramipexole Dihydrochloride (Mirapex -) 0.125 mg PO DAILY@2000 [facility] Tramadol HCl (Ultram -) 50 mg PO Q8H PRN PRN Reason: PAIN LEVEL 6-10 Last Admin: 05/19/18 13:24 Dose: 50 mg - Objective Vital Signs: Vital Signs Temperature 97.8 F 05/19/18 09:30 Pulse Rate 71 05/19/18 09:30 Respiratory Rate 18 05/19/18 09:30 Blood Pressure 152/85 05/19/18 09:30 O2 Sat by Pulse Oximetry (%) 95 05/18/18 21:00 Constitutional: Yes: Well Nourished, No Distress, Calm Eyes: Yes: Conjunctiva Clear, EOM Intact HENT: Yes: Atraumatic, Normocephalic Gastrointestinal: Yes: Soft. No: Distention, Tenderness, Tenderness, Epigastrium Extremities: No: Cool, Cyanosis Integumentary: No: Jaundice, Rash Neurological: Yes: Alert, Oriented Labs: no new labs Problem List - Problems (1) Small bowel obstruction due to adhesions Assessment/Plan: obstruction resolved pt feeling better tolerating regular diet and with good bowel function home meds resumed including Tramadol prn, pramipexole and BP meds statin also restarted no need for surgical intervention will sign off - please recall as needed Thank you for the opportunity to participate in the care of this patient. Code(s): K56.50 - INTESTNL ADHESIONS, UNSP TO PARTIAL VERSUS COMPLETE OBST (2) History of lung cancer Assessment/Plan: s/p left upper lobectomy, chemo Code(s): Z85.118 - PERSONAL HISTORY OF MALIGNANT NEOPLASM OF BRONCHUS AND LUNG (3) H/O prostate cancer Assessment/Plan: s/p prostatectomy, denies radiation or chemo for this Code(s): Z85.46 - PERSONAL HISTORY OF MALIGNANT NEOPLASM OF PROSTATE
--- NOTE | 2018-05-19 16:25 | PN ---
Progress Note, Physician History of Present Illness: Pt is doing well. Tolerating solid food without pain at this time. Having BMs. - Current Medication List Current Medications: Active Medications Acetaminophen (Tylenol -) 650 mg PO Q6H PRN PRN Reason: Pain Level 4 - 10 Last Admin: 05/19/18 05:40 Dose: 650 mg Atorvastatin Calcium (Lipitor -) 10 mg PO HS [facility] Heparin Sodium (Porcine) (Heparin -) 5,000 unit SQ TID [facility] Last Admin: 05/19/18 13:24 Dose: 5,000 unit Piperacillin Sod/Tazobactam (Sod 3.375 gm/ Dextrose) 50 mls @ 100 mls/hr IVPB Q8H-IV [facility]; Protocol Last Admin: 05/19/18 10:27 Dose: 100 mls/hr Metoprolol Tartrate (Lopressor -) 25 mg PO BID [facility] Last Admin: 05/19/18 10:27 Dose: 25 mg Ondansetron HCl (Zofran Injection) 4 mg IVPUSH TID [facility] Last Admin: 05/19/18 13:24 Dose: 4 mg Pantoprazole Sodium (Protonix Iv) 40 mg IVPUSH BID [facility] Last Admin: 05/19/18 10:27 Dose: 40 mg Pramipexole Dihydrochloride (Mirapex -) 0.125 mg PO DAILY@2000 [facility] Tramadol HCl (Ultram -) 50 mg PO Q8H PRN PRN Reason: PAIN LEVEL 6-10 Last Admin: 05/19/18 13:24 Dose: 50 mg - Objective Vital Signs: Vital Signs Temperature 97.7 F 05/19/18 14:51 Pulse Rate 66 05/19/18 14:51 Respiratory Rate 18 05/19/18 14:51 Blood Pressure 153/77 05/19/18 14:51 O2 Sat by Pulse Oximetry (%) 98 05/19/18 09:00 Constitutional: Yes: No Distress, Calm Cardiovascular: Yes: Regular Rate and Rhythm Respiratory: Yes: Regular Gastrointestinal: Yes: Normal Bowel Sounds, Soft Edema: No Neurological: Yes: Alert, Oriented Labs: CBC, BMP 05/18/18 07:30 05/18/18 07:30 INR, PTT INR 1.02 (0.83-1.09) 05/14/18 16:57 Problem List - Problems (1) Small bowel obstruction Code(s): K56.609 - UNSP INTESTNL OBST, UNSP TO PARTIAL VERSUS COMPLETE OBST Assessment/Plan SBO resolved -- d/c antibiotics - pt clinically improved, no complaints
[2018-05-19] MEDS ORDERED: PRAMIPEXOLE DIHYDROCHLORIDE 0.125 MG TABLET PO SCH (20:00)
[2018-05-19] MEDS ORDERED: ATORVASTATIN CA 10 MG TABLET (FP) PO SCH (22:00)
[2018-05-20] MEDS: ACETAMINOPHEN 325 MG TABLET (FP) PO PRN (00:14)
[2018-05-20] MEDS: ONDANSETRON 4 MG/2 ML VIAL IVPUSH SCH ×2 (06:23→15:26)
[2018-05-20] MEDS: HEPARIN NA (PORCINE) 5,000 UNITS/ML 1ML VIAL SQ SCH ×2 (06:23→15:21)
--- NOTE | 2018-05-20 09:46 | PN ---
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 The patient reports that when he woke up he had epigastric abdominal pain that was dull and would come and go and become sharp but nonradiating, approx 2 hours after the pain started he began having NBNB vomiting and states that he cannot count the number of episodes of vomiting he has had. He has never had this pain before but notes a history of peptic ulcer bleed 50 years ago that had healed. Since this AM the patient has had 1x normal well formed bowel movements that was nonbloody and has been passing gas. The patient denies a prior history of small bowel obstruction. The patient denies any fevers. The patient denies any other family members having similar symptoms , denies recent travel. Denies diarrhea or constipation, chest pain, shortness of breath, dysuria, or any other complaints at bedside. 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) Cardiovascular: Yes: HTN, Hyperlipdemia Pulmonary: Yes: Cancer ([facility]) Gastrointestinal: Yes: GI Bleed (bleeding ulcer 50 yrs ago), Peptic Ulcer Disease (bled 50 yrs ago) Renal/: Yes: Cancer (prostate s/p prostatectomy) - Current Medication List Current Medications: Active Medications Acetaminophen (Tylenol -) 650 mg PO Q6H PRN PRN Reason: Pain Level 4 - 10 Last Admin: 05/20/18 00:14 Dose: 650 mg Atorvastatin Calcium (Lipitor -) 10 mg PO HS [facility] Last Admin: 05/19/18 22:45 Dose: 10 mg Heparin Sodium (Porcine) (Heparin -) 5,000 unit SQ TID [facility] Last Admin: 05/20/18 06:23 Dose: 5,000 unit Metoprolol Tartrate (Lopressor -) 25 mg PO BID [facility] Last Admin: 05/19/18 22:45 Dose: 25 mg Ondansetron HCl (Zofran Injection) 4 mg IVPUSH TID [facility] Last Admin: 05/20/18 06:23 Dose: 4 mg Pantoprazole Sodium (Protonix Iv) 40 mg IVPUSH BID [facility] Last Admin: 05/19/18 22:45 Dose: 40 mg Pramipexole Dihydrochloride (Mirapex -) 0.125 mg PO DAILY@2000 [facility] Last Admin: 05/19/18 20:34 Dose: 0.125 mg Tramadol HCl (Ultram -) 50 mg PO Q8H PRN PRN Reason: PAIN LEVEL 6-10 Last Admin: 05/19/18 22:45 Dose: 50 mg - Objective Vital Signs: Vital Signs Temperature 98.5 F 05/20/18 06:00 Pulse Rate 64 05/20/18 06:00 Respiratory Rate 18 05/20/18 06:00 Blood Pressure 152/69 05/20/18 06:00 O2 Sat by Pulse Oximetry (%) 98 05/19/18 21:00 Eyes: Yes: WNL, Conjunctiva Clear, EOM Intact HENT: Yes: WNL, Atraumatic, Normocephalic Neck: Yes: WNL, Supple, Trachea Midline Cardiovascular: Yes: WNL, Regular Rate and Rhythm Respiratory: Yes: WNL, Regular, CTA Bilaterally Gastrointestinal: Yes: WNL, Normal Bowel Sounds Genitourinary: Yes: WNL Musculoskeletal: Yes: WNL Extremities: Yes: WNL Edema: No Integumentary: Yes: WNL Neurological: Yes: WNL, Alert, Oriented ...Motor Strength: WNL Psychiatric: Yes: WNL Labs: CBC, BMP 05/18/18 07:30 05/18/18 07:30 INR, PTT INR 1.02 (0.83-1.09) 05/14/18 16:57 Problem List - Problems (1) Epigastric pain Code(s): R10.13 - EPIGASTRIC PAIN (2) H/O prostate cancer Code(s): Z85.46 - PERSONAL HISTORY OF MALIGNANT NEOPLASM OF PROSTATE (3) History of lung cancer Code(s): Z85.118 - PERSONAL HISTORY OF MALIGNANT NEOPLASM OF BRONCHUS AND LUNG (4) Hypovolemia associated with vomiting Code(s): E86.1 - HYPOVOLEMIA (5) Nausea and vomiting Code(s): R11.2 - NAUSEA WITH VOMITING, UNSPECIFIED Qualifiers: Vomiting type: unspecified Vomiting Intractability: non-intractable Qualified Code(s): R11.2 - Nausea with vomiting, unspecified (6) Small bowel obstruction Code(s): K56.609 - UNSP INTESTNL OBST, UNSP TO PARTIAL VERSUS COMPLETE OBST (7) Small bowel obstruction due to adhesions Code(s): K56.50 - INTESTNL ADHESIONS, UNSP TO PARTIAL VERSUS COMPLETE OBST (8) Dog bite - wound Code(s): W54.0XXA - BITTEN BY DOG, INITIAL ENCOUNTER (9) Thermal nava of multiple sites Code(s): T30.0 - BURN OF UNSPECIFIED BODY REGION, UNSPECIFIED DEGREE Assessment/Plan IMP: Resolving SBO Chronic HTN REC: 1. Rx of SBO as per Gen Surg, diet advance, NGT d/c'd 2. Resume oral Metoprol. Hold Ca2+ for now as may slow intestinal motility. 3. DVT prophylaxis as per Medical team
[2018-05-20] MEDS: traMADol HCL 50 MG TABLET PO PRN (09:54)
[2018-05-20] MEDS: PANTOPRAZOLE SODIUM 40 MG VIAL IVPUSH SCH (09:54)
[2018-05-20] MEDS: METOPROLOL TARTRATE 25 MG TABLET (FP) PO SCH (09:54)
[2018-05-20 11:23] VITALS: TEMP 98.2
[2018-05-20] MEDS ORDERED: PT OWN MED DRAWER 7, Y5N ONE (14:58)
--- NOTE | 2018-05-20 15:35 | PN ---
Progress Note, Physician History of Present Illness: stable no new issues sbo resolved - Current Medication List Current Medications: Active Medications Acetaminophen (Tylenol -) 650 mg PO Q6H PRN PRN Reason: Pain Level 4 - 10 Last Admin: 05/20/18 00:14 Dose: 650 mg Atorvastatin Calcium (Lipitor -) 10 mg PO HS [facility] Last Admin: 05/19/18 22:45 Dose: 10 mg Heparin Sodium (Porcine) (Heparin -) 5,000 unit SQ TID [facility] Last Admin: 05/20/18 15:21 Dose: 5,000 unit Metoprolol Tartrate (Lopressor -) 25 mg PO BID [facility] Last Admin: 05/20/18 09:54 Dose: 25 mg Ondansetron HCl (Zofran Injection) 4 mg IVPUSH TID [facility] Last Admin: 05/20/18 15:26 Dose: 4 mg Pantoprazole Sodium (Protonix Iv) 40 mg IVPUSH BID [facility] Last Admin: 05/20/18 09:54 Dose: 40 mg Pramipexole Dihydrochloride (Mirapex -) 0.125 mg PO DAILY@1999 [facility] Last Admin: 05/19/18 20:34 Dose: 0.125 mg Tramadol HCl (Ultram -) 50 mg PO Q8H PRN PRN Reason: PAIN LEVEL 6-10 Last Admin: 05/20/18 09:54 Dose: 50 mg - Objective Vital Signs: Vital Signs Temperature 98.2 F 05/20/18 10:00 Pulse Rate 72 05/20/18 10:00 Respiratory Rate 20 05/20/18 10:00 Blood Pressure 148/82 05/20/18 10:00 O2 Sat by Pulse Oximetry (%) 98 05/19/18 21:00 Constitutional: Yes: No Distress, Calm Cardiovascular: Yes: Regular Rate and Rhythm Respiratory: Yes: Regular, CTA Bilaterally Gastrointestinal: Yes: Normal Bowel Sounds, Soft Musculoskeletal: Yes: WNL Extremities: Yes: WNL Neurological: Yes: Alert, Oriented Psychiatric: Yes: Alert, Oriented Labs: CBC, BMP 05/18/18 07:30 05/18/18 07:30 INR, PTT INR 1.02 (0.83-1.09) 05/14/18 16:57 Assessment/Plan Problem List - Problems (1) Small bowel obstruction Code(s): K56.609 - UNSP INTESTNL OBST, UNSP TO PARTIAL VERSUS COMPLETE OBST (2) History of lung cancer Code(s): Z85.118 - PERSONAL HISTORY OF MALIGNANT NEOPLASM OF BRONCHUS AND LUNG (3) History of lobectomy of lung Code(s): Z90.2 - ACQUIRED ABSENCE OF LUNG [PART OF] (4) Hypovolemia associated with vomiting Code(s): E86.1 - HYPOVOLEMIA (5) Small bowel obstruction due to adhesions Code(s): K56.50 - INTESTNL ADHESIONS, UNSP TO PARTIAL VERSUS COMPLETE OBST (6) Nausea and vomiting Code(s): R11.2 - NAUSEA WITH VOMITING, UNSPECIFIED Qualifiers: Vomiting type: unspecified Vomiting Intractability: non-intractable Qualified Code(s): R11.2 - Nausea with vomiting, unspecified Assessment/Plan (1) Small bowel obstruction: NGT/IVfluids Code(s): K56.609 - UNSP INTESTNL OBST, UNSP TO PARTIAL VERSUS COMPLETE OBST (2) History of lung cancer Code(s): Z85.118 - PERSONAL HISTORY OF MALIGNANT NEOPLASM OF BRONCHUS AND LUNG (3) History of lobectomy of lung Code(s): Z90.2 - ACQUIRED ABSENCE OF LUNG [PART OF] (4) Hypovolemia associated with vomiting Code(s): E86.1 - HYPOVOLEMIA (5) Small bowel obstruction due to adhesions Code(s): K56.50 - INTESTNL ADHESIONS, UNSP TO PARTIAL VERSUS COMPLETE OBST (6) Nausea and vomiting Code(s): R11.2 - NAUSEA WITH VOMITING, UNSPECIFIED Qualifiers: Vomiting type: unspecified Vomiting Intractability: non-intractable Qualified Code(s): R11.2 - Nausea with vomiting, unspecified 7 leukocytosis plan stable off of abx continue current mgmt rest as per the team patient improving
[2018-05-20 15:55] VITALS: BP 150/70; PULSE 65
--- NOTE | 2018-05-20 17:33 | DS ---
Physical Examination Vital Signs: Vital Signs Temperature 98.2 F 05/20/18 14:53 Pulse Rate 65 05/20/18 14:53 Respiratory Rate 20 05/20/18 14:53 Blood Pressure 150/70 05/20/18 14:53 O2 Sat by Pulse Oximetry (%) 98 05/19/18 21:00 Constitutional: Yes: Well Nourished, No Distress Eyes: Yes: Conjunctiva Clear, EOM Intact HENT: Yes: Atraumatic, Normocephalic Neck: Yes: Supple, Trachea Midline Cardiovascular: Yes: Regular Rate and Rhythm, S1, S2 Respiratory: Yes: Regular, CTA Bilaterally Gastrointestinal: Yes: Normal Bowel Sounds, Soft Labs: CBC, BMP 05/18/18 07:30 05/18/18 07:30 Discharge Summary Reason For Visit: SMALL BOWEL OBSTRUCTION Current Active Problems Chronic diastolic (congestive) heart failure (Acute) Epigastric pain (Acute) H/O prostate cancer (Acute) History of lobectomy of lung (Acute) History of lung cancer (Acute) Hypovolemia associated with vomiting (Acute) Nausea and vomiting (Acute) Small bowel obstruction (Acute) Small bowel obstruction due to adhesions (Acute) Procedures: Principal: Pt had SBO, Pt had Sugical consult,NGT. Pt improved Condition: Stable - Instructions - Home Medications Comprehensive Discharge Medication List: Ambulatory Orders Amlodipine Besylate [Norvasc] 10 mg PO DAILY 06/26/12 Metoprolol Tartrate [Lopressor] 50 mg PO DAILY 06/26/12 Aspirin [Aspirin EC] 81 mg PO DAILY 05/14/18 Atorvastatin Ca [Lipitor] 10 mg PO HS 05/14/18 Tramadol HCl 50 mg PO TID PRN 05/14/18
== END 2018-05-20 18:22 | disposition home or self-care (01) | DRG 389 ==
LOC: JER 11:50 → JERBED 16:44 → OBSVTOIN 18:21 → J5S 05-15 15:19
PROVIDERS: ADMIT Internal Medicine; ATTEND Internal Medicine
PROC: 0D9670Z Drainage of Stomach with Drainage Device, Via Natural or Artificial Opening (ICD-10-PCS; principal; 2018-05-14)
DX: K56.50 Intestinal adhesions [bands], unspecified as to partial versus complete obstruction (principal); I50.32 Chronic diastolic (congestive) heart failure; I11.0 Hypertensive heart disease with heart failure; K27.9 Peptic ulcer, site unspecified, unspecified as acute or chronic, without hemorrhage or perforation; Z85.46 Personal history of malignant neoplasm of prostate; Z85.118 Personal history of other malignant neoplasm of bronchus and lung; G62.0 Drug-induced polyneuropathy; T45.1X5A Adverse effect of antineoplastic and immunosuppressive drugs, initial encounter; Z87.891 Personal history of nicotine dependence; E86.1 Hypovolemia; E86.0 Dehydration; E78.5 Hyperlipidemia, unspecified; K29.60 Other gastritis without bleeding; D72.829 Elevated white blood cell count, unspecified
CPT/HCPCS: 36415; 71045-TC-FY; 74018-TC-FY; 74019-TC-FY; 74177-TC; 80048; 80053; 80061; 81003; 81015; 83605; 83690; 83721; 83735; 85025; 85610; 85730; 86850; 86900; 86901; 87086; 93005; 93010; 93306-TC; 99285-25; G0378; J0131; J1644; J7030

== ENCOUNTER 2019-04-26 13:47 | Inpatient (IN) | payer OTHER, BC ==
--- NOTE | 2019-04-26 13:59 | PDOC ---
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 Pt reported his pain is located to his left chest, constant, pinching, 5/10-->4/10 (with Nitro and ASA 324 chew given by EMS en route), non-radiating, no aggravating factors. Pt admitted to frontal headache x3 days, that is usual in location, but has not been improved by Tylenol (2 pills, last taken yesterday). Pt denied nausea, vomiting, numbness, weakness, shortness of breath, cough, fever, focal weakness. Daughter: Nelda Sanchez -[phone] Cardiology: Alireza BRADFORD General: denied fever, chills, generalized weakness. HEENT: denied sore throat, rhinorrhea, ear pain. Cardiovascular: admitted to chest pain. denied palpitations, syncope, diaphoresis. Respiratory: denied shortness of breath, cough, sputum production, hemoptysis. Gastrointestinal: denied abdominal pain, nausea, vomiting, diarrhea, constipation, blood in stool. Genitourinary: denied dysuria, increased urinary frequency, hematuria, urinary incontinence, flank pain. Back: denied back pain. Musculoskeletal: denied joint pain, muscle pain, joint swelling. Neurological: admitted to headache. denied dizziness, numbness, tingling, weakness. Integumentary: denied rash, laceration, abrasion. Hematologic/Lymphatic: denied bruising or bleeding. PE Constitutional: Well-nourished, Well-developed, appearing stated age. HEENT: head is normocephalic, atraumatic. EOMI. PERRLA. Neck: supple. Full ROM. Cardiovascular: regular heart rhythm. no murmurs. no pericardial friction rub. Chest: no anterior chest wall tenderness to palpation. Respiratory: clear to auscultation bilaterally. no crackles, rhonchi or wheezing. no stridor. Gastrointestinal: soft, nontender. normal bowel sounds. no rebound, guarding, masses. Extremities: peripheral pulses intact. no lower extremity edema. Neurological: alert. oriented x3. CN2-12 intact. 5/5 strength all extremities. decreased sensation to RLE compared to left (reported baseline per pt), full sensation to bilateral upper extremities and bilateral face. romberg negative. no ataxia. gait normal. Psych: awake, alert, oriented x3. follows commands. answers questions appropriately. Past History - Past Medical History Allergies/Adverse Reactions: Allergies Allergy/AdvReac Type Severity Reaction Status Date / Time No Known Allergies Allergy Verified 05/14/18 13:35 Home Medications: Ambulatory Orders Amlodipine Besylate [Norvasc -] 10 mg PO DAILY 04/26/19 Ascorbic Acid [Vitamin C] 500 mg PO DAILY 04/26/19 Atorvastatin Ca [Lipitor] 10 mg PO HS 04/26/19 Cyanocobalamin [Vitamin B12 -] 500 mcg PO DAILY 04/26/19 Docusate Sodium [Colace] 100 mg PO DAILY 04/26/19 Escitalopram Oxalate [Lexapro -] 10 mg PO DAILY 04/26/19 Gabapentin 100 mg PO TID 04/26/19 Magnesium 500 mg PO DAILY 04/26/19 Metoprolol Succinate [Toprol Xl] 50 mg PO BID 04/26/19 Pramipexole Di-HCl [Pramipexole ER] 0.5 mg PO HS 04/26/19 Pyridoxine HCl (B-6) [Vitamin B6] 100 mg PO DAILY 04/26/19 Tramadol HCl 50 mg PO TID 04/26/19 Cancer: Yes (prostate + lung) Cardiac Disorders: Yes CVA: No COPD: No GI Disorders: Yes (Hernia) HTN: Yes Hypercholesterolemia: Yes Lung CA: Yes (lobectomy) - Surgical History Abdominal Surgery: Yes (hernia repair) Appendectomy: Yes Lung Surgery: Yes - Immunization History Immunization Up to Date: No - Suicide/Smoking/Psychosocial Hx Smoking Status: No Smoking History: Never smoked Have you smoked in the past 12 months: No Number of Cigarettes Smoked Daily: 0 If you are a former smoker, when did you quit?: ~10 pk-yr hx from teens to 25yo 'Breaking Loose' booklet given: 06/26/12 Hx Alcohol Use: No Drug/Substance Use Hx: No Substance Use Type: None Hx Substance Use Treatment: No *Physical Exam - Vital Signs Last Vital Signs Temp Pulse Resp BP Pulse Ox 98.3 F 73 16 135/75 100 04/26/19 13:52 04/26/19 13:52 04/26/19 13:52 04/26/19 13:52 04/26/19 13:52 ED Treatment Course - LABORATORY CBC & Chemistry Diagram: 04/26/19 14:30 04/26/19 14:30 Medical Decision Making - Medical Decision Making 78 year old male with above PMH presented to ED for chest pain since 0900 today , headache x3 days. Initial Vital Signs Temp Pulse Resp BP Pulse Ox 98.3 F 73 16 135/75 100 04/26/19 13:52 04/26/19 13:52 04/26/19 13:52 04/26/19 13:52 04/26/19 13:52 Afebrile. No tachycardia. No tachypnea. Mild hypertension. No hypoxia on room air. Labs ordered: CBC, CMP, troponin, Medications given by EMS: Nitro 0.4 mg SL once, ASA 324 PO Chew once Medications ordered: pepcid IV, normal saline bolus 1000 cc, tylenol IV, reglan IV Imaging ordered: CXR, CT head EKG performed at 1422: rate 60, regular rhythm, normal axis, normal intervals, no acute ST changes. 04/26/19 15:36 CBC WBC 6.4 K/mm3 (4.0-10.0) 04/26/19 14:30 RBC 5.04 M/mm3 (4.00-5.60) 04/26/19 14:30 Hgb 14.5 GM/dL (11.7-16.9) 04/26/19 14:30 Hct 43.6 % (35.4-49) 04/26/19 14:30 MCV 86.6 fl (80-96) 04/26/19 14:30 MCH 28.8 pg (25.7-33.7) 04/26/19 14:30 MCHC 33.3 g/dl (32.0-35.9) 04/26/19 14:30 RDW 13.4 % (11.9-15.9) 04/26/19 14:30 Plt Count 135 K/MM3 (134-434) 04/26/19 14:30 MPV 10.3 fl (7.5-11.1) D 04/26/19 14:30 Absolute Neuts (auto) 3.5 K/mm3 (1.5-8.0) 04/26/19 14:30 Neutrophils % 54.1 % (42.8-82.8) 04/26/19 14:30 Lymphocytes % 22.7 % (8-40) 04/26/19 14:30 Monocytes % 19.9 % (3.8-10.2) H 04/26/19 14:30 Eosinophils % 2.7 % (0-4.5) 04/26/19 14:30 Basophils % 0.6 % (0-2.0) 04/26/19 14:30 Nucleated RBC % 0 % (0-0) 04/26/19 14:30 No leukocytosis. No anemia. 04/26/19 15:50 CMP Sodium 138 mmol/L (136-145) 04/26/19 14:30 Potassium 4.1 mmol/L (3.5-5.1) 04/26/19 14:30 Chloride 105 mmol/L (98-107) 04/26/19 14:30 Carbon Dioxide 27 mmol/L (21-32) 04/26/19 14:30 Anion Gap 6 MMOL/L (8-16) L 04/26/19 14:30 BUN 17.4 mg/dL (7-18) 04/26/19 14:30 Creatinine 1.4 mg/dL (0.55-1.3) H 04/26/19 14:30 Est GFR (CKD-EPI)AfAm 55.38 04/26/19 14:30 Est GFR (CKD-EPI)NonAf 47.78 04/26/19 14:30 Random Glucose 97 mg/dL (74-106) 04/26/19 14:30 Calcium 9.1 mg/dL (8.5-10.1) 04/26/19 14:30 Magnesium 2.5 mg/dL (1.8-2.4) H 04/26/19 14:30 Total Bilirubin 0.2 mg/dL (0.2-1) 04/26/19 14:30 AST 14 U/L (15-37) L 04/26/19 14:30 ALT 29 U/L (13-61) 04/26/19 14:30 Alkaline Phosphatase 67 U/L (45-117) 04/26/19 14:30 Troponin I < 0.02 ng/ml (0.00-0.05) 04/26/19 14:30 Total Protein 7.3 g/dl (6.4-8.2) 04/26/19 14:30 Albumin 3.7 g/dl (3.4-5.0) 04/26/19 14:30 No electrolyte abnormalities. Cr at baseline. Troponin undetectable 04/26/19 16:39 Dr. Ramires called department after receiving call from patient, he was updated on pt's condition. Will admit to hospitalist if workup complete after 5 PM and he will see pt in the morning. 04/26/19 16:[address] [place]' view: no infiltrate. haziness at left base seen prior. -No cough/fever -Pending official report 04/26/19 17:30 CT head report: HISTORY: 78 year old man: Evaluate for metastatic disease. COMPARISON: None TECHNIQUE: Non-contrast axial images were obtained. Coronal and sagittal images were also generated. FINDINGS: The sulci and ventricles are mildly prominent suggesting mild age related involutional changes. There are no intracranial hemorrhages, extra-axial fluid collections or gross evidence of an intra-axial mass lesion. CONFIDENTIALITY NOTICE: This There is no clear evidence of chronic ischemic demyelination. Cerebral alcantar/white matter differentiation is preserved, without clear evidence of an acute ischemic lesion at this time. Orbital and petrous structures, cerebellopontine angles, and posterior fossa appear unremarkable. The paranasal and mastoid sinuses are clear. IMPRESSION: Mild age related involutional changes. The study is otherwise unremarkable. No evidence of acute or chronic ischemic change. No intracranial hemorrhages, extra-axial fluid collections or intra-axial mass lesion.Evaluation for metastatic disease disease is limited without IV contrast. An MRI scan, with contrast, is recommended for further evaluation. . One or more of the following dose reduction techniques were used: automated exposure control, adjustment of the mA and/or kV according to patient size, use of iterative reconstructive technique. THIS DOCUMENT HAS BEEN ELECTRONICALLY SIGNED Pedro Luis Ramires MD. Pt reported improvement of headache to 0/10. Pt reported chest pain 3/10. Pt to be admitted for chest pain, tele/obs. 04/26/19 17:40 Sign out given to Dr. Kee, he requested for us to call Dr. Lay (pt's cashier payments received). Dr. Lay overhead paged. Pending admission: tele/obs. 04/26/19 17:56 Second troponin pending. 04/26/19 18:28 Second trop undetectable. Second EKG performed at 1422: rate 60, regular rhythm, normal axis, normal intervals, no acute ST changes. *DC/Admit/Observation/Transfer Diagnosis at time of Disposition: Chest pain - Discharge Dispostion Condition at time of disposition: Stable Decision to Admit order: Yes - Referrals - Patient Instructions - Post Discharge Activity
[2019-04-26] MEDS ORDERED: ACETAMINOPHEN 1000 MG/100 ML VIAL (NON FORMULARY) IVPB ONE (14:16)
[2019-04-26] MEDS ORDERED: METOCLOPRAMIDE HCL INJECTION 10 MG/2 ML VIAL IVPUSH ONE (14:16)
[2019-04-26] MEDS ORDERED: SODIUM CHLORIDE 1,000 ML IV STA (14:16)
[2019-04-26] MEDS ORDERED: FAMOTIDINE 20 MG/50 ML IVPB 20 MG/50 ML MG IVPB ONE ×2 (14:16→14:27)
[2019-04-26] MEDS ORDERED: ACETAMINOPHEN INJECTION 100 ML IVPB ONE (14:27)
[2019-04-26] MEDS ORDERED: METOCLOPRAMIDE HCL INJECTION 10 MG/2 ML VIAL ONE (14:27)
--- NOTE | 2019-04-26 14:31 | PDOC ---
Attending Attestation - Resident Resident Name: Bree Wilkerson - ED Attending Attestation I have performed the following: I have examined & evaluated the patient, The case was reviewed & discussed with the resident, I agree w/resident's findings & plan, Exceptions are as noted - HPI HPI: 04/26/19 14:30 78 yo male h/o lung ca s/p lebectomy/ chemo 15 yrs ago, htn, here wtih c/o headache and chest pain. pt describes chest pain, substernal, left sided, did get associated sob, nausea, lightheaded. no vomiting. no radiation of pain. no other complaints. no h/o pe or dvt. does have chronic leg pain for which he gets annual dopplers,. no cough no f/c headache is mild constant. pcp dr Stallings 04/26/19 16:23 - Physicial Exam PE: 04/26/19 16:24 awake alert lungs clear bilat heart rrr no mrg abd soft nt nd ext wwp. no edema. no calf tenderness. 2+dp; pt pulses bilat nuero alert oriented x 3. - Medical Decision Making 04/26/19 16:32 78 yo male here wtih co chest pain feeling lighteaded sob nauseass, also c/o headache. differential mass, ich hyponatremia, renal failure, acs anemia. plan cxr ct head , labs ekg trop. due to pt age, h/o htn and family h/o cad ( father mi ) will admit to telemetry r/o acs. ct head . dw dr Stallings, request pt be admitted to telemtry ( not observation) and he will see in the am, admit hospitalist over night. 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 consult placed per hospitalist request. Heart Score/ECG Review #1 ECG reviewed & interpreted by me at: 14:30 General ECG Interpretation: Sinus Rhythm, Normal Rate (60), Normal Intervals, No acute ischemic changes
[2019-04-26 14:56] LABS: BASO % 0.6 % (0-2.0); EOS % 2.7 % (0-4.5); HEMATOCRIT 43.6 % (35.4-49); HEMOGLOBIN 14.5 GM/dL (11.7-16.9); LYMPH % 22.7 % (8-40); MCH 28.8 pg (25.7-33.7); MCHC 33.3 g/dl (32.0-35.9); MEAN CELL VOLUME 86.6 fl (80-96); MEAN PLT VOLUME 10.3 fl (7.5-11.1); MONO % 19.9 % (3.8-10.2); NEUT % 54.1 % (42.8-82.8); PLATELET COUNT 135 K/MM3 (134-434); RBC 5.04 M/mm3 (4.00-5.60); RDW 13.4 % (11.9-15.9); WHITE BLOOD COUNT 6.4 K/mm3 (4.0-10.0)
[2019-04-26 15:37] LABS: ALBUMIN 3.7 g/dl (3.4-5.0); ALK PHOS 67 U/L (45-117); ANION GAP 6 MMOL/L (8-16); BILIRUBIN,TOTAL 0.2 mg/dL (0.2-1); BLOOD UREA NITROGEN 17.4 mg/dL (7-18); CALCIUM 9.1 mg/dL (8.5-10.1); CHLORIDE 105 mmol/L (98-107); CO2 27 mmol/L (21-32); CREATININE 1.4 mg/dL (0.55-1.3); GLUCOSE,RANDOM 97 mg/dL (74-106); POTASSIUM 4.1 mmol/L (3.5-5.1); SGOT/AST 14 U/L (15-37); SGPT/ALT 29 U/L (13-61); SODIUM 138 mmol/L (136-145); TOT PROT 7.3 g/dl (6.4-8.2)
[2019-04-26 18:05] LABS: INR 1.01 (0.83-1.09); PROTHROMBIN TIME (PATIENT) 11.9 SEC (9.7-13.0)
[2019-04-26 18:07] LABS: ACTIVATED PTT 29.8 SECONDS (25.2-36.5)
--- NOTE | 2019-04-26 18:18 | HP ---
CHIEF COMPLAINT: CHEST PAINS SINCE AM HEADACHE FOR 3 DAYS PCP:DR ELAINE HISTORY OF PRESENT ILLNESS: 78 yo male h/o lung ca s/p lebectomy/ chemo 15 yrs ago, htn, here wtih c/o headache and chest pain. pt describes chest pain, substernal, left sided, did get associated sob, nausea, lightheaded. no vomiting. no radiation of pain. no other complaints. no h/o pe or dvt. does have chronic leg pain for which he gets annual dopplers,. no cough no f/c headache is mild constant. He has ct head done in er and it is normal no sign of any ic lesions. He is pain free now and no more headache since he has received tyelnol as well, He has good appetite and has h/o abdominal pains with taking aspirin. 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 patient said he had stress test cardio last year and it was negative. ER course was notable for: (1)headache (2)chest pains (3)stress test last year negative Recent Travel:none family not significant PAST MEDICAL HISTORY: Htn, bph, lung cancer Prostate cancer. PAST SURGICAL HISTORY: lobectomy for lung cancer Social History: Smoking:ex smoker Alcohol:none Drugs: none Allergies No Known Allergies Allergy (Verified 05/14/18 13:35) HOME MEDICATIONS: Home Medications Medication Instructions Recorded Amlodipine Besylate [Norvasc -] 10 mg PO DAILY 04/26/19 Ascorbic Acid [Vitamin C] 500 mg PO DAILY 04/26/19 Atorvastatin Ca [Lipitor] 10 mg PO HS 04/26/19 Cyanocobalamin [Vitamin B12 -] 500 mcg PO DAILY 04/26/19 Docusate Sodium [Colace] 100 mg PO DAILY 04/26/19 Escitalopram Oxalate [Lexapro -] 10 mg PO DAILY 04/26/19 Gabapentin 100 mg PO TID 04/26/19 Magnesium 500 mg PO DAILY 04/26/19 Metoprolol Succinate [Toprol Xl] 50 mg PO BID 04/26/19 Pramipexole Di-HCl [Pramipexole ER] 0.5 mg PO HS 04/26/19 Pyridoxine HCl (B-6) [Vitamin B6] 100 mg PO DAILY 04/26/19 Tramadol HCl 50 mg PO TID 04/26/19 REVIEW OF SYSTEMS CONSTITUTIONAL: Absent: fever, chills, diaphoresis, generalized weakness, malaise, loss of appetite, weight change HEENT: Absent: rhinorrhea, nasal congestion, throat pain, throat swelling, difficulty swallowing, mouth swelling, ear pain, eye pain, visual changes CARDIOVASCULAR: present chest pain, Absent:syncope, palpitations, irregular heart rate, lightheadedness, peripheral edema RESPIRATORY: Absent: cough, shortness of breath, dyspnea with exertion, orthopnea, wheezing, stridor, hemoptysis GASTROINTESTINAL: Absent: abdominal pain, abdominal distension, nausea, vomiting, diarrhea, constipation, melena, hematochezia GENITOURINARY: Absent: dysuria, frequency, urgency, hesitancy, hematuria, flank pain, genital pain MUSCULOSKELETAL: Absent: myalgia, arthralgia, joint swelling, back pain, neck pain SKIN: Absent: rash, itching, pallor HEMATOLOGIC/IMMUNOLOGIC: Absent: easy bleeding, easy bruising, lymphadenopathy, frequent infections ENDOCRINE: Absent: unexplained weight gain, unexplained weight loss, heat intolerance, cold intolerance NEUROLOGIC: present headache, Absent:focal weakness or paresthesias, dizziness, unsteady gait, seizure, mental status changes, bladder or bowel incontinence PSYCHIATRIC: Absent: anxiety, depression, suicidal or homicidal ideation, hallucinations. PHYSICAL EXAMINATION Vital Signs - 24 hr 04/26/19 04/26/19 04/26/19 13:52 14:19 15:04 Temperature 98.3 F 98.1 F Pulse Rate 73 Pulse Rate [ 73 71 Apical] Respiratory 16 18 18 Rate Blood Pressure 135/75 Blood Pressure 148/85 146/78 [Left Arm] O2 Sat by Pulse 100 100 98 Oximetry (%) GENERAL: Awake, alert, and fully oriented, in no acute distress. HEAD: Normal with no signs of trauma. EYES: Pupils equal, round and reactive to light, extraocular movements intact, sclera anicteric, conjunctiva clear. No lid lag. EARS, NOSE, THROAT: Ears normal, nares patent, oropharynx clear without exudates. Moist mucous membranes. NECK: Normal range of motion, supple without lymphadenopathy, JVD, or masses. LUNGS: Breath sounds equal, clear to auscultation bilaterally. No wheezes, and no crackles. No accessory muscle use. HEART: Regular rate and rhythm, normal S1 and S2 without murmur, rub or gallop. ABDOMEN: Soft, nontender, not distended, normoactive bowel sounds, no guarding, no rebound, no masses. No hepatomegaly or splenomegaly. MUSCULOSKELETAL: Normal range of motion at all joints. No bony deformities or tenderness. No CVA tenderness. UPPER EXTREMITIES: 2+ pulses, warm, well-perfused. No cyanosis. No clubbing. No peripheral edema. LOWER EXTREMITIES: 2+ pulses, warm, well-perfused. No calf tenderness. No peripheral edema. NEUROLOGICAL: Cranial nerves II-XII intact. Normal speech. Normal gait. PSYCHIATRIC: Cooperative. Good eye contact. Appropriate mood and affect. SKIN: Warm, dry, normal turgor, no rashes or lesions noted, normal capillary refill. Laboratory Results - last 24 hr 04/26/19 04/26/19 04/26/19 14:30 14:30 14:30 WBC 6.4 RBC 5.04 Hgb 14.5 Hct 43.6 MCV 86.6 MCH 28.8 MCHC 33.3 RDW 13.4 Plt Count 135 MPV 10.3 D Absolute Neuts (auto) 3.5 Neutrophils % 54.1 Lymphocytes % 22.7 Monocytes % 19.9 H Eosinophils % 2.7 Basophils % 0.6 Nucleated RBC % 0 PT with INR INR Sodium 138 Potassium 4.1 Chloride 105 Carbon Dioxide 27 Anion Gap 6 L BUN 17.4 Creatinine 1.4 H Est GFR (CKD-EPI)AfAm 55.38 Est GFR (CKD-EPI)NonAf 47.78 Random Glucose 97 Calcium 9.1 Magnesium 2.5 H Total Bilirubin 0.2 AST 14 L ALT 29 Alkaline Phosphatase 67 Troponin I < 0.02 Total Protein 7.3 Albumin 3.7 04/26/19 17:30 WBC RBC Hgb Hct MCV MCH MCHC RDW Plt Count MPV Absolute Neuts (auto) Neutrophils % Lymphocytes % Monocytes % Eosinophils % Basophils % Nucleated RBC % PT with INR 11.90 INR 1.01 Sodium Potassium Chloride Carbon Dioxide Anion Gap BUN Creatinine Est GFR (CKD-EPI)AfAm Est GFR (CKD-EPI)NonAf Random Glucose Calcium Magnesium Total Bilirubin AST ALT Alkaline Phosphatase Troponin I Total Protein Albumin ASSESSMENT/PLAN: 1-Headache Probably non specific and better with tylenol and his ct head is negative for any intracranial lesions. will watch 2-chest pains his ekg is non specific q wave and has first set of troponin is negative pt got aspirin in er and he is pain free now he also received pepcid in er will do serial cardiac enzymes and troponins and called cardio consult dr Lay. admit to tele 3 Htn controlled and continue amlodipine and toprol 4- High lipids continue atorvastatin 5 h/o lung and prostate cancer will just observe. 6 Neuropathy h/o probably due to chemo continue tramadal and gabapentin 7 depression and anxity continue lexapro . Visit type - Emergency Visit Emergency Visit: Yes Care time: The patient presented to the Emergency Department on the above date and was hospitalized for further evaluation of their emergent condition. - New Patient This patient is new to me today: Yes Date on this admission: 04/26/19 - Critical Care Critical Care patient: No
[2019-04-26] MEDS ORDERED: PRAMIPEXOLE DI HCL 0.5 MG PO SCH (22:00)
[2019-04-26] MEDS: traMADol HCL 50 MG TABLET PO SCH (23:06)
[2019-04-26] MEDS: RANITIDINE HCL 150 MG TABLET (FP) PO SCH (23:06)
[2019-04-26] MEDS: GABAPENTIN 100 MG CAPSULE (FP) PO SCH (23:06)
[2019-04-26] MEDS: ATORVASTATIN CA 10 MG TABLET (FP) PO SCH (23:06)
[2019-04-27 00:03] VITALS: BMI 30.2
[2019-04-27] MEDS: traMADol HCL 50 MG TABLET PO SCH ×3 (06:41→22:32)
[2019-04-27] MEDS: GABAPENTIN 100 MG CAPSULE (FP) PO SCH ×3 (06:42→22:32)
[2019-04-27] MEDS ORDERED: ACETAMINOPHEN 325 MG TABLET (FP) ONE (07:20)
--- NOTE | 2019-04-27 09:33 | PN ---
Teaching Attending Note Name of Resident: Citlalli Smith ATTENDING PHYSICIAN STATEMENT I saw and evaluated the patient. I reviewed the resident's note and discussed the case with the resident. I agree with the resident's findings and plan as documented. SUBJECTIVE: OBJECTIVE: c/o mild head ache Vital Signs Temperature 98.4 F 04/27/19 05:43 Pulse Rate 64 04/27/19 05:43 Respiratory Rate 20 04/27/19 05:43 Blood Pressure 185/85 H 04/27/19 05:43 O2 Sat by Pulse Oximetry (%) 99 04/26/19 23:45 CBC, BMP 04/26/19 14:30 04/26/19 14:30 Active Medications Amlodipine Besylate (Norvasc -) 10 mg PO DAILY [facility] Ascorbic Acid (Vitamin C -) 500 mg PO DAILY [facility] Aspirin (Ecotrin -) 81 mg PO DAILY [facility] Atorvastatin Calcium (Lipitor -) 10 mg PO HS [facility] Last Admin: 04/26/19 23:06 Dose: 10 mg Cyanocobalamin (Vitamin B12 -) 500 mcg PO DAILY [facility] Docusate Sodium (Colace -) 100 mg PO DAILY [facility] Escitalopram Oxalate (Lexapro -) 10 mg PO DAILY [facility] Gabapentin (Neurontin -) 100 mg PO TID [facility] Last Admin: 04/27/19 06:42 Dose: 100 mg Metoprolol Succinate (Toprol Xl -) 50 mg PO BID [facility] Last Admin: 04/26/19 23:44 Dose: Not Given Non-Formulary Medication (Pramipexole Di-Hcl [Pramipexole Er]) 0.5 mg PO HS [facility] Pyridoxine HCl (Vitamin B6 -) 100 mg PO DAILY [facility] Ranitidine HCl (Zantac -) 150 mg PO BID [facility] Last Admin: 04/26/19 23:06 Dose: 150 mg Tramadol HCl (Ultram -) 50 mg PO TID [facility] Last Admin: 04/27/19 06:41 Dose: 50 mg ASSESSMENT AND PLAN:78 yrs old man with H/O CA Lung s/p Lobectomy, Neuropathy , HTN, Chronic Head ache present with head ache and chest pain so far hemodynamically stable, serial CE and EKG are unremarkable Problem List - Problems (1) Chest pain Assessment/Plan: Atyoical as per patient last NST was -ve 1 yr agio no excertional symptoms stable EKG and serial CE are -ve cardiology consulted from Ed will F/u cardiology recommendations cont ASA and B Blockers Code(s): R07.9 - CHEST PAIN, UNSPECIFIED (2) HTN (hypertension) Assessment/Plan: Well controlled cont all home meds Code(s): I10 - ESSENTIAL (PRIMARY) HYPERTENSION (3) Chronic diastolic (congestive) heart failure Assessment/Plan: compensated Code(s): I50.32 - CHRONIC DIASTOLIC (CONGESTIVE) HEART FAILURE (4) Head ache Assessment/Plan: Chronic recent eye exam last wk syas Spectacles no changed will buy new pair of eye Glasses , CT head no acute changes, Code(s): R51 - HEADACHE (5) History of lobectomy of lung Assessment/Plan: 15 yrs ago for CA Lung in remission Code(s): Z90.2 - ACQUIRED ABSENCE OF LUNG [PART OF]
[2019-04-27] MEDS ORDERED: PT OWN MED DRAWER 7, Y5N ONE (09:53)
[2019-04-27] MEDS: ASPIRIN COATED 81 MG TABLET.EC PO SCH (09:57)
[2019-04-27] MEDS: amLODIPine BESYLATE 10 MG TABLET (FP) PO SCH (09:57)
[2019-04-27] MEDS: DOCUSATE SODIUM 100 MG CAPSULE (FP) PO SCH (09:57)
[2019-04-27] MEDS: ESCITALOPRAM OXALATE 10 MG TABLET (FP) PO SCH (09:57)
[2019-04-27] MEDS: ASCORBIC ACID 500 MG TABLET (FP) PO SCH (09:57)
[2019-04-27] MEDS: RANITIDINE HCL 150 MG TABLET (FP) PO SCH ×2 (09:57→22:32)
[2019-04-27] MEDS: CYANOCOBALAMIN 1,000 MCG TABLET (FP) PO SCH (09:57)
[2019-04-27] MEDS ORDERED: PATIENT'S OWN MEDICATION (NON-FORMULARY) (Ascorbic Acid [Vitamin C] 500 MG) PO SCH (10:00)
[2019-04-27] MEDS ORDERED: PYRIDOXINE HCL (B-6) 100 MG TABLET PO SCH (10:00)
[2019-04-27] MEDS: PYRIDOXINE HCL (B-6) 50 MG TABLET (FP) PO SCH (10:11)
[2019-04-27] MEDS: ACETAMINOPHEN 325 MG TABLET (FP) PO PRN (10:12)
--- NOTE | 2019-04-27 11:38 | PN ---
Physical Exam: SUBJECTIVE: Patient seen and examined OBJECTIVE: Vital Signs Period Temp Pulse Resp BP Sys/Claros Pulse Ox Last 24 Hr 97.6 F-98.8 F 54-73 16-20 135-185/75-85 98-100 GENERAL: The patient is awake, alert, and fully oriented, in no acute distress. HEAD: Normal with no signs of trauma. EYES: PERRL, extraocular movements intact, sclera anicteric, conjunctiva clear. No ptosis. ENT: Ears normal, nares patent, oropharynx clear without exudates, moist mucous membranes. NECK: Trachea midline, full range of motion, supple. LUNGS: Breath sounds equal, clear to auscultation bilaterally, no wheezes, no crackles, no accessory muscle use. HEART: Regular rate and rhythm, S1, S2 without murmur, rub or gallop. ABDOMEN: Soft, nontender, nondistended, normoactive bowel sounds, no guarding, no rebound, no hepatosplenomegaly, no masses. EXTREMITIES: 2+ pulses, warm, well-perfused, no edema. NEUROLOGICAL: Cranial nerves II through XII grossly intact. Normal speech, gait not observed. PSYCH: Normal mood, normal affect. SKIN: Warm, dry, normal turgor, no rashes or lesions noted Laboratory Results - last 24 hr 04/26/19 04/26/19 04/26/19 14:30 14:30 14:30 WBC 6.4 RBC 5.04 Hgb 14.5 Hct 43.6 MCV 86.6 MCH 28.8 MCHC 33.3 RDW 13.4 Plt Count 135 MPV 10.3 D Absolute Neuts (auto) 3.5 Neutrophils % 54.1 Lymphocytes % 22.7 Monocytes % 19.9 H Eosinophils % 2.7 Basophils % 0.6 Nucleated RBC % 0 PT with INR INR PTT (Actin FS) Sodium 138 Potassium 4.1 Chloride 105 Carbon Dioxide 27 Anion Gap 6 L BUN 17.4 Creatinine 1.4 H Est GFR (CKD-EPI)AfAm 55.38 Est GFR (CKD-EPI)NonAf 47.78 Random Glucose 97 Calcium 9.1 Magnesium 2.5 H Total Bilirubin 0.2 AST 14 L ALT 29 Alkaline Phosphatase 67 Troponin I < 0.02 Total Protein 7.3 Albumin 3.7 04/26/19 04/26/19 17:30 17:30 WBC RBC Hgb Hct MCV MCH MCHC RDW Plt Count MPV Absolute Neuts (auto) Neutrophils % Lymphocytes % Monocytes % Eosinophils % Basophils % Nucleated RBC % PT with INR 11.90 INR 1.01 PTT (Actin FS) 29.8 Sodium Potassium Chloride Carbon Dioxide Anion Gap BUN Creatinine Est GFR (CKD-EPI)AfAm Est GFR (CKD-EPI)NonAf Random Glucose Calcium Magnesium Total Bilirubin AST ALT Alkaline Phosphatase Troponin I < 0.02 Total Protein Albumin Active Medications Generic Name Dose Route Start Last Admin Trade Name Freq PRN Reason Stop Dose Admin Acetaminophen 650 mg 04/27/19 09:59 04/27/19 10:12 Tylenol - PO 650 mg Q6H PRN Administration PAIN LEVEL 1-5 OR FEVER Amlodipine Besylate 10 mg 04/27/19 10:00 04/27/19 09:57 Norvasc - PO 10 mg DAILY [facility] Administration Ascorbic Acid 500 mg 04/27/19 10:00 04/27/19 09:57 Vitamin C - PO 500 mg DAILY [facility] Administration Aspirin 81 mg 04/27/19 10:00 04/27/19 09:57 Ecotrin - PO 81 mg DAILY [facility] Administration Atorvastatin Calcium 10 mg 04/26/19 22:00 04/26/19 23:06 Lipitor - PO 10 mg HS [facility] Administration Cyanocobalamin 500 mcg 04/27/19 10:00 04/27/19 09:57 Vitamin B12 - PO 500 mcg DAILY [facility] Administration Docusate Sodium 100 mg 04/27/19 10:00 04/27/19 09:57 Colace - PO 100 mg DAILY [facility] Administration Escitalopram Oxalate 10 mg 04/27/19 10:00 04/27/19 09:57 Lexapro - PO 10 mg DAILY [facility] Administration Gabapentin 100 mg 04/26/19 22:00 04/27/19 06:42 Neurontin - PO 100 mg TID [facility] Administration Metoprolol Succinate 50 mg 04/26/19 22:00 04/27/19 09:57 Toprol Xl - PO 50 mg BID [facility] Administration Non-Formulary Medication 0.5 mg 04/26/19 22:00 Pramipexole Di-Hcl [Pramipexole Er] PO HS [facility] Pyridoxine HCl 100 mg 04/27/19 10:15 04/27/19 10:11 Vitamin B6 - PO 100 mg DAILY [facility] Administration Ranitidine HCl 150 mg 04/26/19 22:00 04/27/19 09:57 Zantac - PO 150 mg BID [facility] Administration Tramadol HCl 50 mg 04/26/19 22:00 04/27/19 06:41 Ultram - PO 50 mg TID [facility] Administration ASSESSMENT/PLAN: ATTENDING PHYSICIAN STATEMENT I saw and evaluated the patient. I reviewed the resident's note and discussed the case with the resident. I agree with the resident's findings and plan as documented. SUBJECTIVE: OBJECTIVE: ASSESSMENT AND PLAN:
--- NOTE | 2019-04-27 13:24 | PN ---
Progress Note, Physician History of Present Illness: Coverage Dr. Ramires pt seen/ examined ,. chart reviewed c/c- still having headache denies cp but complains of pressure sometimes sitting in chair BP also noted to be high - Current Medication List Current Medications: Active Medications Acetaminophen (Tylenol -) 650 mg PO Q6H PRN PRN Reason: PAIN LEVEL 1-5 OR FEVER Last Admin: 04/27/19 10:12 Dose: 650 mg Amlodipine Besylate (Norvasc -) 10 mg PO DAILY [facility] Last Admin: 04/27/19 09:57 Dose: 10 mg Ascorbic Acid (Vitamin C -) 500 mg PO DAILY [facility] Last Admin: 04/27/19 09:57 Dose: 500 mg Aspirin (Ecotrin -) 81 mg PO DAILY [facility] Last Admin: 04/27/19 09:57 Dose: 81 mg Atorvastatin Calcium (Lipitor -) 10 mg PO HS [facility] Last Admin: 04/26/19 23:06 Dose: 10 mg Cyanocobalamin (Vitamin B12 -) 500 mcg PO DAILY [facility] Last Admin: 04/27/19 09:57 Dose: 500 mcg Docusate Sodium (Colace -) 100 mg PO DAILY [facility] Last Admin: 04/27/19 09:57 Dose: 100 mg Enalapril Maleate (Vasotec -) 5 mg PO DAILY [facility] Escitalopram Oxalate (Lexapro -) 10 mg PO DAILY [facility] Last Admin: 04/27/19 09:57 Dose: 10 mg Gabapentin (Neurontin -) 100 mg PO TID [facility] Last Admin: 04/27/19 06:42 Dose: 100 mg Metoprolol Succinate (Toprol Xl -) 50 mg PO BID [facility] Last Admin: 04/27/19 09:57 Dose: 50 mg Non-Formulary Medication (Pramipexole Di-Hcl [Pramipexole Er]) 0.5 mg PO [facility] Pyridoxine HCl (Vitamin B6 -) 100 mg PO DAILY [facility] Last Admin: 04/27/19 10:11 Dose: 100 mg Ranitidine HCl (Zantac -) 150 mg PO BID [facility] Last Admin: 04/27/19 09:57 Dose: 150 mg Tramadol HCl (Ultram -) 50 mg PO TID [facility] Last Admin: 04/27/19 06:41 Dose: 50 mg - Objective Vital Signs: Vital Signs Temperature 97.6 F 04/27/19 10:00 Pulse Rate 54 L 09/22/19 10:00 Respiratory Rate 20 04/27/19 10:00 Blood Pressure 147/82 04/27/19 10:00 O2 Sat by Pulse Oximetry (%) 100 04/27/19 09:00 Constitutional: Yes: No Distress, Calm Eyes: Yes: Conjunctiva Clear, PERRL HENT: Yes: WNL Neck: Yes: Supple, Trachea Midline Cardiovascular: Yes: Regular Rate and Rhythm Respiratory: Yes: CTA Bilaterally Gastrointestinal: Yes: Soft Edema: No Neurological: Yes: WNL, Cran Nerves II-XII Intact Psychiatric: Yes: Alert Labs: CBC, BMP 04/26/19 14:30 04/26/19 14:30 INR, PTT INR 1.01 (0.83-1.09) 04/26/19 17:30 - ....Imaging Chest X-ray: Report Reviewed Cat Scan: Pending (offical report pending) Problem List - Problems (1) Chest pain Code(s): R07.9 - CHEST PAIN, UNSPECIFIED (2) HTN (hypertension) Code(s): I10 - ESSENTIAL (PRIMARY) HYPERTENSION (3) Head ache Code(s): R51 - HEADACHE (4) Chronic diastolic (congestive) heart failure Code(s): I50.32 - CHRONIC DIASTOLIC (CONGESTIVE) HEART FAILURE (5) History of lung cancer Code(s): Z85.118 - PERSONAL HISTORY OF MALIGNANT NEOPLASM OF BRONCHUS AND LUNG (6) CKD (chronic kidney disease) Code(s): N18.9 - CHRONIC KIDNEY DISEASE, UNSPECIFIED Assessment/Plan Clinically stable mi ruled out Headache -- BP also elevated add enalapril stress test cardiology to follow Monitor on tele d/w RN also will follow
[2019-04-27] MEDS: ENALAPRIL MALEATE 5 MG TABLET (FP) PO SCH (13:53)
--- NOTE | 2019-04-27 15:50 | CON.CARD ---
Consult Consult Specialty:: cardiology Reason for Consultation:: chest pain - History of Present Illness Chief Complaint: Pt A&Ox3; ambulates without chest pain or dyspnea. History of Present Illness: 78 yo male (mathieu Aleman) with PMHx lung ca s/p lebectomy/ chemo 15 yrs ago, ? prostate CA, htn, diastolic CHF, overweight, now here wtih c/o headache/ blurry vision ("my eyeglasses are no good") and chest pain. pt describes chest pain as beginning when he woke up with in early am, with substernal tightness at rest, left sided, that gradually increased from mild to moderately severe, with associated sob, nausea, lightheaded. The pain lasted for hours: no vomiting. no radiation of pain. no other complaints. no h/o pe or dvt. He does have chronic leg pain for which he gets annual dopplers; no cough. Headache is mild and constant. Hx small bowel obstruction-->surgery; inquinal hernia repair; s/p appendectomy; s/p lung lobectomy. Pt's previous episode of chest discomfort was years ago. Hx stress MIBI several years ago that was reportedly negative for ischemia. Pt exercises at home (marching in place; walking in hallways) without chest pain or dyspnea. 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) Cardio/Vascular: Yes: HTN, Hyperlipdemia Pulmonary: Yes: Cancer (GREGORY) Gastrointestinal: Yes: GI Bleed (bleeding ulcer 50 yrs ago), Peptic Ulcer Disease (bled 50 yrs ago) Renal/: Yes: Cancer (prostate s/p prostatectomy) - Past Surgical History Past Surgical History: Yes: Appendectomy (right paramedian scar), Hernia Repair (umbilical and left inguinal), Prostatectomy (lower midline pelvic scar) - Alcohol/Substance Use Hx Alcohol Use: No History of Substance Use: reports: None - Smoking History Smoking history: Never smoked Have you smoked in the past 12 months: No Aproximately how many cigarettes per day: 0 If you are a former smoker, when did you quit?: ~10 pk-yr hx from teens to 25yo - Social History Usual Living Arrangement: With Spouse ADL: Independent Home Medications - Allergies Allergies/Adverse Reactions: Allergies Allergy/AdvReac Type Severity Reaction Status Date / Time No Known Allergies Allergy Verified 05/14/18 13:35 - Home Medications Home Medications: Ambulatory Orders Amlodipine Besylate [Norvasc -] 10 mg PO DAILY 04/26/19 Ascorbic Acid [Vitamin C] 500 mg PO DAILY 04/26/19 Atorvastatin Ca [Lipitor] 10 mg PO HS 04/26/19 Cyanocobalamin [Vitamin B12 -] 500 mcg PO DAILY 04/26/19 Docusate Sodium [Colace] 100 mg PO DAILY 04/26/19 Escitalopram Oxalate [Lexapro -] 10 mg PO DAILY 04/26/19 Gabapentin 100 mg PO TID 04/26/19 Magnesium 500 mg PO DAILY 04/26/19 Metoprolol Succinate [Toprol Xl] 50 mg PO BID 04/26/19 Pramipexole Di-HCl [Pramipexole ER] 0.5 mg PO HS 04/26/19 Pyridoxine HCl (B-6) [Vitamin B6 -] 100 mg PO DAILY 04/26/19 Tramadol HCl 50 mg PO TID 04/26/19 Aspirin Coated [Ecotrin -] 81 mg PO DAILY tablet.ec 04/28/19 Enalapril Maleate [Vasotec -] 5 mg PO DAILY tablet 04/28/19 Ranitidine [Zantac -] 150 mg PO BID tablet 04/28/19 Family Medical History Family History: Denies Review of Systems - Review of Systems Constitutional: reports: No Symptoms Eyes: reports: No Symptoms HENT: reports: Other (headache) Neck: reports: No Symptoms Cardiovascular: reports: Chest Pain Respiratory: reports: No Symptoms Gastrointestinal: reports: No Symptoms Genitourinary: reports: No Symptoms Breasts: reports: No Symptoms Reported Musculoskeletal: reports: No Symptoms Integumentary: reports: No Symptoms Neurological: reports: No Symptoms Endocrine: reports: Increased Thirst Hematology/Lymphatic: reports: No Symptoms Psychiatric: reports: Anxiety - Risk Factors Known Risk Factors: Yes: Age, Diabetes Mellitus, Gender, Hypercholesterolemia, Hypertension, Physical Inactivity Vital Signs: Vital Signs Temperature 97.6 F 04/27/19 10:00 Pulse Rate 54 L 04/27/19 10:00 Respiratory Rate 20 04/27/19 10:00 Blood Pressure 147/82 04/27/19 10:00 O2 Sat by Pulse Oximetry (%) 100 04/27/19 09:00 Constitutional: Yes: Well Nourished Eyes: Yes: WNL HENT: Yes: WNL Neck: Yes: WNL Respiratory: Yes: WNL Gastrointestinal: Yes: WNL Renal/: No: Anuria Cardiovascular: Yes: Regular Rate and Rhythm JVD: No Carotid Bruit: No PMI: Non-Displaced Heart Sounds: Yes: S1, S2, S4 Murmur: Yes: Systolic Murmur, Grade 1 Musculoskeletal: Yes: WNL Extremities: Yes: WNL Edema: No Peripheral Pulses WNL: Yes Integumentary: Yes: WNL Neurological: Yes: WNL ...Motor Strength: WNL Psychiatric: Yes: WNL - Other Data Labs, Other Data: CBC, BMP 04/26/19 14:30 04/26/19 14:30 INR, PTT INR 1.01 (0.83-1.09) 04/26/19 17:30 Troponin, BNP 04/26/19 17:30 Troponin I < 0.02 Troponin, BNP 04/26/19 17:30 Troponin I < 0.02 Echo: Pending Imaging - Results Chest X-ray: Image Reviewed EKG: Image Reviewed Problem List - Problems (1) HTN (hypertension) Assessment/Plan: on metoprolol and amlodipine. F/u serial BP and HR. BUN/Cr, electrolytes. Code(s): I10 - ESSENTIAL (PRIMARY) HYPERTENSION (2) Head ache Code(s): R51 - HEADACHE (3) Chronic diastolic (congestive) heart failure Code(s): I50.32 - CHRONIC DIASTOLIC (CONGESTIVE) HEART FAILURE (4) H/O prostate cancer Code(s): Z85.46 - PERSONAL HISTORY OF MALIGNANT NEOPLASM OF PROSTATE (5) History of lobectomy of lung Code(s): Z90.2 - ACQUIRED ABSENCE OF LUNG [PART OF] (6) History of lung cancer Assessment/Plan: F?u with oncologist. Code(s): Z85.118 - PERSONAL HISTORY OF MALIGNANT NEOPLASM OF BRONCHUS AND LUNG (7) Small bowel obstruction Code(s): K56.609 - UNSP INTESTNL OBST, UNSP TO PARTIAL VERSUS COMPLETE OBST (8) Anxiety Assessment/Plan: Pt is worried the headache and visual changes mean he may have a tumor of the brain. Code(s): F41.9 - ANXIETY DISORDER, UNSPECIFIED (9) Chest pain Assessment/Plan: Chest tightness (central), mild-moderate, off and on at rest for hours. TNI < 0.02; f/u serially. EKG: NSR ECHO: f/u LVEF, wall motion, valve status. If TNI remains negative, will order stress MIBI (HTN; DM; hyperlipidemia; chest pain). Code(s): R07.9 - CHEST PAIN, UNSPECIFIED
[2019-04-27] MEDS: ATORVASTATIN CA 10 MG TABLET (FP) PO SCH (22:32)
[2019-04-28] MEDS: traMADol HCL 50 MG TABLET PO SCH ×3 (05:37→22:11)
[2019-04-28] MEDS: GABAPENTIN 100 MG CAPSULE (FP) PO SCH ×3 (05:38→22:12)
[2019-04-28 07:04] LABS: ALBUMIN 3.6 g/dl (3.4-5.0); ALK PHOS 58 U/L (45-117); ANION GAP 6 MMOL/L (8-16); BILIRUBIN,TOTAL 0.5 mg/dL (0.2-1); BLOOD UREA NITROGEN 16.3 mg/dL (7-18); CALCIUM 8.7 mg/dL (8.5-10.1); CHLORIDE 105 mmol/L (98-107); CHOLESTEROL 138 mg/dL (50-200); CO2 28 mmol/L (21-32); CREATININE 1.4 mg/dL (0.55-1.3); GLUCOSE,RANDOM 89 mg/dL (74-106); HDL CHOLESTEROL 55 mg/dL (40-60); POTASSIUM 3.6 mmol/L (3.5-5.1); SGOT/AST 17 U/L (15-37); SGPT/ALT 28 U/L (13-61); SODIUM 139 mmol/L (136-145); TRIGLYCERIDES 98 mg/dL (0-150)
--- NOTE | 2019-04-28 07:13 | EKG ---
Test Reason : Blood Pressure : / mmHG Vent. 

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
[2019-04-28] MEDS: ENALAPRIL MALEATE 5 MG TABLET (FP) PO SCH ×2 (08:00→10:12)
[2019-04-28] MEDS: amLODIPine BESYLATE 10 MG TABLET (FP) PO SCH ×2 (08:00→10:12)
[2019-04-28] MEDS ORDERED: REGADENOSON 0.4 MG/5 ML PRE-FILLED SYRINGE IVPUSH ONE ×2 (09:34→10:00)
--- NOTE | 2019-04-28 11:15 | PN ---
Progress Note (short form) - Note Progress Note: comfortable worries about headache Vital Signs Temp 98.0 F 04/28/19 08:06 Pulse 57 L 04/28/19 08:06 Resp 18 04/28/19 09:00 BP 164/87 04/28/19 08:06 Pulse Ox 100 04/28/19 09:00 Intake & Output 04/27/19 04/27/19 04/28/19 11:59 23:59 11:59 Intake Total 660 10 Balance 660 10 Intake: IV 10 saline lock 10 Oral 660 Other: Voiding Method Toilet Toilet Toilet # Unmeasured Voids Void 1 2 Bowel Movement Yes # Bowel Movements 1 Active Medications Acetaminophen (Tylenol -) 650 mg PO Q6H PRN PRN Reason: PAIN LEVEL 1-5 OR FEVER Last Admin: 04/27/19 10:12 Dose: 650 mg Amlodipine Besylate (Norvasc -) 10 mg PO DAILY [facility] Last Admin: 04/28/19 10:12 Dose: Not Given Ascorbic Acid (Vitamin C -) 500 mg PO DAILY [facility] Last Admin: 04/27/19 09:57 Dose: 500 mg Aspirin (Ecotrin -) 81 mg PO DAILY [facility] Last Admin: 04/27/19 09:57 Dose: 81 mg Atorvastatin Calcium (Lipitor -) 10 mg PO [facility] Last Admin: 04/27/19 22:32 Dose: 10 mg Cyanocobalamin (Vitamin B12 -) 500 mcg PO DAILY [facility] Last Admin: 04/27/19 09:57 Dose: 500 mcg Docusate Sodium (Colace -) 100 mg PO DAILY [facility] Last Admin: 04/27/19 09:57 Dose: 100 mg Enalapril Maleate (Vasotec -) 5 mg PO DAILY [facility] Last Admin: 04/28/19 10:12 Dose: Not Given Escitalopram Oxalate (Lexapro -) 10 mg PO DAILY [facility] Last Admin: 04/27/19 09:57 Dose: 10 mg Gabapentin (Neurontin -) 100 mg PO TID [facility] Last Admin: 04/28/19 05:38 Dose: Not Given Metoprolol Succinate (Toprol Xl -) 50 mg PO BID [facility] Last Admin: 04/27/19 22:32 Dose: 50 mg Non-Formulary Medication (Pramipexole Di-Hcl [Pramipexole Er]) 0.5 mg PO [facility] Pyridoxine HCl (Vitamin B6 -) 100 mg PO DAILY [facility] Last Admin: 04/27/19 10:11 Dose: 100 mg Ranitidine HCl (Zantac -) 150 mg PO BID [facility] Last Admin: 04/27/19 22:32 Dose: 150 mg Tramadol HCl (Ultram -) 50 mg PO TID [facility] Last Admin: 04/28/19 05:37 Dose: Not Given CBC, BMP 04/26/19 14:30 04/28/19 05:35 Physical Constitutional: Yes: No Distress, Calm Eyes: Yes: Conjunctiva Clear, PERRLA HENT: Yes: WNL Neck: Yes: Supple, Trachea Midline Cardiovascular: Yes: Regular Rate and Rhythm Respiratory: Yes: CTA Bilaterally Gastrointestinal: Yes: Soft Edema: No Neurological: Yes: WNL, Cran Nerves II-XII Intact Psychiatric: Yes: Alert assessment and plan stress test today will consult neurology---patient's worries about headache d/c home if stress test -ve Will follow Problem List - Problems (1) Chest pain Code(s): R07.9 - CHEST PAIN, UNSPECIFIED (2) HTN (hypertension) Code(s): I10 - ESSENTIAL (PRIMARY) HYPERTENSION (3) Head ache Code(s): R51 - HEADACHE (4) Chronic diastolic (congestive) heart failure Code(s): I50.32 - CHRONIC DIASTOLIC (CONGESTIVE) HEART FAILURE (5) History of lung cancer Code(s): Z85.118 - PERSONAL HISTORY OF MALIGNANT NEOPLASM OF BRONCHUS AND LUNG (6) CKD (chronic kidney disease) Code(s): N18.9 - CHRONIC KIDNEY DISEASE, UNSPECIFIED
--- NOTE | 2019-04-28 11:15 | DS ---
Physical Examination Vital Signs: Vital Signs Temperature 98.0 F 04/28/19 08:06 Pulse Rate 57 L 04/28/19 08:06 Respiratory Rate 18 04/28/19 09:00 Blood Pressure 164/87 04/28/19 08:06 O2 Sat by Pulse Oximetry (%) 100 04/28/19 09:00 Labs: CBC, BMP 04/26/19 14:30 04/28/19 05:35 Discharge Summary Reason For Visit: CHEST PAIN Current Active Problems Anxiety (Acute) Atypical chest pain (Acute) CKD (chronic kidney disease) (Acute) Chest pain (Acute) HTN (hypertension) (Acute) Head ache (Acute) Condition: Stable - Instructions - Home Medications Comprehensive Discharge Medication List: Ambulatory Orders Amlodipine Besylate [Norvasc -] 10 mg PO DAILY 04/26/19 Ascorbic Acid [Vitamin C] 500 mg PO DAILY 04/26/19 Atorvastatin Ca [Lipitor] 10 mg PO HS 04/26/19 Cyanocobalamin [Vitamin B12 -] 500 mcg PO DAILY 04/26/19 Docusate Sodium [Colace] 100 mg PO DAILY 04/26/19 Escitalopram Oxalate [Lexapro -] 10 mg PO DAILY 04/26/19 Gabapentin 100 mg PO TID 04/26/19 Magnesium 500 mg PO DAILY 04/26/19 Metoprolol Succinate [Toprol Xl] 50 mg PO BID 04/26/19 Pramipexole Di-HCl [Pramipexole ER] 0.5 mg PO HS 04/26/19 Pyridoxine HCl (B-6) [Vitamin B6 -] 100 mg PO DAILY 04/26/19 Tramadol HCl 50 mg PO TID 04/26/19 Aspirin Coated [Ecotrin -] 81 mg PO DAILY tablet.ec 04/28/19 Enalapril Maleate [Vasotec -] 5 mg PO DAILY tablet 04/28/19 Ranitidine [Zantac -] 150 mg PO BID tablet 04/28/19
--- NOTE | 2019-04-28 12:12 | ECHO ---
Name: SUSAN FELICIANO Exam:Adult Echocardiogram Study Date: 04/28/2019 08:04 AM Age: 78 yrs Reason For Study: acute cva Height: 65 in Weight: 168 lb BSA: 1.8 m2 MMode/2D Measurements & Calculations IVSd: 0.97 cm Ao root diam: 3.5 cm LVIDd: 4.6 cm LA dimension: 2.8 cm LVIDs: 2.9 cm ACS: 1.7 cm LVPWd: 0.95 cm IVSs: 1.4 cm LVPWs: 1.3 cm EDV(Teich): 98.0 ml ESV(Teich): 32.0 ml Doppler Measurements & Calculations MV E max irena: 57.8 cm/sec Ao V2 max: 123.3 cm/sec MV A max irena: 85.9 cm/sec Ao max P.1 mmHg MV E/A: 0.67 TR max irena: 206.3 cm/sec Med Peak E' Irena: 10.9 cm/sec TR max P.0 mmHg Med E/e': 5.3 Lat Peak E' Irena: 5.7 cm/sec Lat E/e': 10.1 Procedure A complete two-dimensional transthoracic echocardiogram was performed (2D, M-mode, Doppler and color flow Doppler). Technically limited study. Left Ventricle The left ventricle is normal in size. Left ventricular systolic function is normal. Grade I diastolic dysfunction, (abnormal relaxation pattern). Ratio E/E'= 11. No regional wall motion abnormalities not ed. Right Ventricle The right ventricle is normal size. The right ventricular systolic function is normal. Atria The left atrial size is normal. Right atrial size is normal. Mitral Valve There is mild mitral annular calcification. There is trace mitral regurgitation. Tricuspid Valve The tricuspid valve is normal in structure and function. No tricuspid regurgitation. Aortic Valve There is mild aortic sclerosis.;. No aortic regurgitation is present. Pulmonic Valve The pulmonic valve is not well visualized. Great Vessels The aortic root is normal size. Pericardium/Pleura There is no pericardial effusion. Interpretation Summary The left ventricle is normal in size. Left ventricular systolic function is normal. No regional wall motion abnormalities noted. Grade I diastolic dysfunction, (abnormal relaxation pattern). Ratio E/E'= 11 c/w normal filling pressure The right ventricular systolic function is normal. The left atrial size is normal. Right atrial size is normal. There is mild mitral annular calcification. There is trace mitral regurgitation. There is mild aortic sclerosis. There is no pericardial effusion. When compared to study dated 05/15/18, no significant changes are seen Hany Raymundo MD 04/28/2019 12:11 PM
[2019-04-28] MEDS: RANITIDINE HCL 150 MG TABLET (FP) PO SCH ×2 (13:07→22:12)
[2019-04-28] MEDS: ASCORBIC ACID 500 MG TABLET (FP) PO SCH (13:07)
[2019-04-28] MEDS: PYRIDOXINE HCL (B-6) 50 MG TABLET (FP) PO SCH (13:07)
[2019-04-28] MEDS: ASPIRIN COATED 81 MG TABLET.EC PO SCH (13:07)
[2019-04-28] MEDS: CYANOCOBALAMIN 1,000 MCG TABLET (FP) PO SCH (13:08)
[2019-04-28] MEDS: ESCITALOPRAM OXALATE 10 MG TABLET (FP) PO SCH (13:08)
[2019-04-28] MEDS: DOCUSATE SODIUM 100 MG CAPSULE (FP) PO SCH (13:09)
--- NOTE | 2019-04-28 18:24 | EKG ---
Test Reason : Blood Pressure : / mmHG Vent. Rate : 055 BPM Atrial Rate : 055 BPM P-R Int : 204 ms QRS Dur : 074 ms QT Int : 454 ms P-R-T Axes : 025 002 037 degrees QTc Int : 434 ms SINUS BRADYCARDIA POSSIBLE INFERIOR INFARCT (CITED ON OR BEFORE 14-MAY-2018) ABNORMAL ECG WHEN COMPARED WITH ECG OF 26-APR-2019 14:22, NO SIGNIFICANT CHANGE WAS FOUND Confirmed by IDRIS PRADHAN, CLARKE ([id number]) on 04/28/2019 6:24:19 PM Referred By: Confirmed By:CLARKE STEINBERG MD
--- NOTE | 2019-04-28 21:16 | CON.NEURO ---
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) Cardio/Vascular: Yes: HTN, Hyperlipdemia Pulmonary: Yes: Cancer (GREGORY) Gastrointestinal: Yes: GI Bleed (bleeding ulcer 50 yrs ago), Peptic Ulcer Disease (bled 50 yrs ago) Renal/: Yes: Cancer (prostate s/p prostatectomy) - Past Surgical History Past Surgical History: Yes: Appendectomy (right paramedian scar), Hernia Repair (umbilical and left inguinal), Prostatectomy (lower midline pelvic scar) - Alcohol/Substance Use Hx Alcohol Use: No History of Substance Use: reports: None - Smoking History Smoking history: Never smoked Have you smoked in the past 12 months: No Aproximately how many cigarettes per day: 0 If you are a former smoker, when did you quit?: ~10 pk-yr hx from teens to 25yo - Social History Usual Living Arrangement: With Spouse ADL: Independent Home Medications - Allergies Allergies/Adverse Reactions: Allergies Allergy/AdvReac Type Severity Reaction Status Date / Time No Known Allergies Allergy Verified 05/14/18 13:35 - Home Medications Home Medications: Ambulatory Orders Amlodipine Besylate [Norvasc -] 10 mg PO DAILY 04/26/19 Ascorbic Acid [Vitamin C] 500 mg PO DAILY 04/26/19 Atorvastatin Ca [Lipitor] 10 mg PO HS 04/26/19 Cyanocobalamin [Vitamin B12 -] 500 mcg PO DAILY 04/26/19 Docusate Sodium [Colace] 100 mg PO DAILY 04/26/19 Escitalopram Oxalate [Lexapro -] 10 mg PO DAILY 04/26/19 Gabapentin 100 mg PO TID 04/26/19 Magnesium 500 mg PO DAILY 04/26/19 Metoprolol Succinate [Toprol Xl] 50 mg PO BID 04/26/19 Pramipexole Di-HCl [Pramipexole ER] 0.5 mg PO HS 04/26/19 Pyridoxine HCl (B-6) [Vitamin B6 -] 100 mg PO DAILY 04/26/19 Tramadol HCl 50 mg PO TID 04/26/19 Aspirin Coated [Ecotrin -] 81 mg PO DAILY tablet.ec 04/28/19 Enalapril Maleate [Vasotec -] 5 mg PO DAILY tablet 04/28/19 Ranitidine [Zantac -] 150 mg PO BID tablet 04/28/19 Physical Exam-Neuro Vital Signs: Vital Signs Temperature 98.3 F 04/28/19 18:20 Pulse Rate 63 04/28/19 18:20 Respiratory Rate 18 04/28/19 18:20 Blood Pressure 146/84 04/28/19 18:20 O2 Sat by Pulse Oximetry (%) 100 04/28/19 09:00 Labs: CBC, BMP 04/26/19 14:30 04/28/19 05:35 INR, PTT INR 1.01 (0.83-1.09) 04/26/19 17:30 Assessment/Plan cc Headache x four days HPI 78 year old male history of BPH,HTN,Lung cancer ( s/0 lobectomy, chemo). Patient came to hospital for chest pain and headache. He is admitted to tele further work up. Patient denies any focal neurological symptoms, including dysphagia, dysarthria, diplopia. There is no fever or neck stiffness, no loc or seizure. Patient has ct head done and it was unremarkable. patient headache is getting better. He is exeriencing headhace upto 1-2 at this time.He denies any throbbing or pulsating in nature, and he usually do not get headhace on a regular basis. PAST MEDICAL HISTORY: Htn, bph, lung cancer Prostate cancer. PAST SURGICAL HISTORY: lobectomy for lung cancer Social History: Smoking:ex smoker Alcohol:none Drugs: none Allergies No Known Allergies Allergy (Verified 05/14/18 13:35) HOME MEDICATIONS: Home Medications Medication Instructions Recorded Amlodipine Besylate [Norvasc -] 10 mg PO DAILY 04/26/19 Ascorbic Acid [Vitamin C] 500 mg PO DAILY 04/26/19 Atorvastatin Ca [Lipitor] 10 mg PO HS 04/26/19 Cyanocobalamin [Vitamin B12 -] 500 mcg PO DAILY 04/26/19 Docusate Sodium [Colace] 100 mg PO DAILY 04/26/19 Escitalopram Oxalate [Lexapro -] 10 mg PO DAILY 04/26/19 Gabapentin 100 mg PO TID 04/26/19 Magnesium 500 mg PO DAILY 04/26/19 Metoprolol Succinate [Toprol Xl] 50 mg PO BID 04/26/19 Pramipexole Di-HCl [Pramipexole ER] 0.5 mg PO HS 04/26/19 Pyridoxine HCl (B-6) [Vitamin B6] 100 mg PO DAILY 04/26/19 Tramadol HCl 50 mg PO TID 04/26/19 ROS,FH,SH reviewed in chart NEUROLOGICAL SYMPTOMS alert, oriented x 3, speech is normal, neck is supple, afebrile eomi, pupils reactive no face asymmtry motor 5/5 all ext sensation is normal gait and coordination is normal ct head is normal Assessment/plan 1. Tension headache, neuro exam is normal. no neck stiffness, afebrile. No evidence of SAH OR Meningitis. Plan: no need for mri or spinal tap, pain is getting better Take tylenol or NSAID prn - I would add one dose of benadryl tonight as he is having difficulty sleeping in hospital Thankig you so much Jed Orozco MD
[2019-04-28] MEDS: ATORVASTATIN CA 10 MG TABLET (FP) PO SCH (22:12)
[2019-04-29] MEDS: diphenhydrAMINE HCL 25 MG CAPSULE (FP) PO PRN ×4 (01:10→21:31)
[2019-04-29] MEDS: GABAPENTIN 100 MG CAPSULE (FP) PO SCH ×3 (06:26→21:30)
[2019-04-29] MEDS: traMADol HCL 50 MG TABLET PO SCH ×3 (06:26→21:30)
[2019-04-29] MEDS: ASPIRIN COATED 81 MG TABLET.EC PO SCH (10:53)
[2019-04-29] MEDS: ENALAPRIL MALEATE 5 MG TABLET (FP) PO SCH (10:53)
[2019-04-29] MEDS: amLODIPine BESYLATE 10 MG TABLET (FP) PO SCH (10:53)
[2019-04-29] MEDS: PYRIDOXINE HCL (B-6) 50 MG TABLET (FP) PO SCH (10:53)
[2019-04-29] MEDS: ESCITALOPRAM OXALATE 10 MG TABLET (FP) PO SCH (10:54)
[2019-04-29] MEDS: DOCUSATE SODIUM 100 MG CAPSULE (FP) PO SCH (10:54)
[2019-04-29] MEDS: CYANOCOBALAMIN 1,000 MCG TABLET (FP) PO SCH (10:54)
[2019-04-29] MEDS: ASCORBIC ACID 500 MG TABLET (FP) PO SCH (10:54)
[2019-04-29] MEDS: RANITIDINE HCL 150 MG TABLET (FP) PO SCH ×2 (10:54→21:30)
--- NOTE | 2019-04-29 11:44 | DS ---
Physical Examination Vital Signs: Vital Signs Temperature 98 F 04/29/19 06:07 Pulse Rate 57 L 04/29/19 06:07 Respiratory Rate 18 04/29/19 09:00 Blood Pressure 154/81 04/29/19 06:07 O2 Sat by Pulse Oximetry (%) 96 04/29/19 09:00 Labs: CBC, BMP 04/26/19 14:30 04/28/19 05:35 <Gladys Mariee - Last Filed: 04/29/19 11:44> Vital Signs: Vital Signs Temperature 98 F 04/29/19 06:07 Pulse Rate 57 L 04/29/19 06:07 Respiratory Rate 18 04/29/19 09:00 Blood Pressure 154/81 04/29/19 06:07 O2 Sat by Pulse Oximetry (%) 96 04/29/19 09:00 Constitutional: Yes: Anxious Labs: CBC, BMP 04/26/19 14:30 04/28/19 05:35 <Tramaine Lay - Last Filed: 04/29/19 12:29> Discharge Summary Reason For Visit: CHEST PAIN Current Active Problems Anxiety (Acute) Atypical chest pain (Acute) CKD (chronic kidney disease) (Acute) Chest pain (Acute) HTN (hypertension) (Acute) Head ache (Acute) - Home Medications Comprehensive Discharge Medication List: Ambulatory Orders Amlodipine Besylate [Norvasc -] 10 mg PO DAILY 04/26/19 Ascorbic Acid [Vitamin C] 500 mg PO DAILY 04/26/19 Atorvastatin Ca [Lipitor] 10 mg PO HS 04/26/19 Cyanocobalamin [Vitamin B12 -] 500 mcg PO DAILY 04/26/19 Docusate Sodium [Colace] 100 mg PO DAILY 04/26/19 Escitalopram Oxalate [Lexapro -] 10 mg PO DAILY 04/26/19 Gabapentin 100 mg PO TID 04/26/19 Magnesium 500 mg PO DAILY 04/26/19 Metoprolol Succinate [Toprol Xl] 50 mg PO BID 04/26/19 Pramipexole Di-HCl [Pramipexole ER] 0.5 mg PO HS 04/26/19 Pyridoxine HCl (B-6) [Vitamin B6 -] 100 mg PO DAILY 04/26/19 Tramadol HCl 50 mg PO TID 04/26/19 Aspirin Coated [Ecotrin -] 81 mg PO DAILY tablet.ec 04/28/19 Enalapril Maleate [Vasotec -] 5 mg PO DAILY tablet 04/28/19 Ranitidine [Zantac -] 150 mg PO BID tablet 04/28/19 <Gladys Mariee - Last Filed: 04/29/19 11:44> Current Active Problems Anxiety (Acute) Atypical chest pain (Acute) CKD (chronic kidney disease) (Acute) Chest pain (Acute) HTN (hypertension) (Acute) Head ache (Acute) - Home Medications Comprehensive Discharge Medication List: Ambulatory Orders Amlodipine Besylate [Norvasc -] 10 mg PO DAILY 04/26/19 Ascorbic Acid [Vitamin C] 500 mg PO DAILY 04/26/19 Atorvastatin Ca [Lipitor] 10 mg PO HS 04/26/19 Cyanocobalamin [Vitamin B12 -] 500 mcg PO DAILY 04/26/19 Docusate Sodium [Colace] 100 mg PO DAILY 04/26/19 Escitalopram Oxalate [Lexapro -] 10 mg PO DAILY 04/26/19 Gabapentin 100 mg PO TID 04/26/19 Magnesium 500 mg PO DAILY 04/26/19 Metoprolol Succinate [Toprol Xl] 50 mg PO BID 04/26/19 Pramipexole Di-HCl [Pramipexole ER] 0.5 mg PO HS 04/26/19 Pyridoxine HCl (B-6) [Vitamin B6 -] 100 mg PO DAILY 04/26/19 Tramadol HCl 50 mg PO TID 04/26/19 Aspirin Coated [Ecotrin -] 81 mg PO DAILY tablet.ec 04/28/19 Enalapril Maleate [Vasotec -] 5 mg PO DAILY tablet 04/28/19 Ranitidine [Zantac -] 150 mg PO BID tablet 04/28/19 <Tramaine Lay - Last Filed: 04/29/19 12:29> Condition: Stable - Instructions Disposition: HOME
--- NOTE | 2019-04-29 12:32 | PN ---
Progress Note (short form) - Note Progress Note: Events noted No chest pain Had underwent stress test yesterday Vital Signs - 24 hr 04/28/19 04/28/19 04/28/19 13:05 18:20 21:00 Temperature 98.2 F 98.3 F 98 F Pulse Rate 62 63 58 L Respiratory 18 18 18 Rate Blood Pressure 132/79 146/84 149/74 O2 Sat by Pulse 96 Oximetry (%) 04/29/19 04/29/19 04/29/19 02:04 06:07 09:00 Temperature 97.8 F 98 F Pulse Rate 57 L 57 L Respiratory 18 18 18 Rate Blood Pressure 152/83 154/81 O2 Sat by Pulse 96 Oximetry (%) Current Medications Generic Name Dose Route Start Last Admin Trade Name Freq PRN Reason Stop Dose Admin Acetaminophen 650 mg 04/27/19 09:59 04/27/19 10:12 Tylenol - PO 650 mg Q6H PRN Administration PAIN LEVEL 1-5 OR FEVER Amlodipine Besylate 10 mg 04/27/19 10:00 04/29/19 10:53 Norvasc - PO 10 mg DAILY GINA Administration Ascorbic Acid 500 mg 04/27/19 10:00 04/29/19 10:54 Vitamin C - PO 500 mg DAILY GINA Administration Aspirin 81 mg 04/27/19 10:00 04/29/19 10:53 Ecotrin - PO 81 mg DAILY GINA Administration Atorvastatin Calcium 10 mg 04/26/19 22:00 04/28/19 22:12 Lipitor - PO 10 mg HS GINA Administration Cyanocobalamin 500 mcg 04/27/19 10:00 04/29/19 10:54 Vitamin B12 - PO 500 mcg DAILY GINA Administration Diphenhydramine HCl 50 mg 04/28/19 21:17 04/29/19 03:20 Benadryl - PO 25 mg HS PRN Administration INSOMNIA Docusate Sodium 100 mg 04/27/19 10:00 04/29/19 10:54 Colace - PO 100 mg DAILY GINA Administration Enalapril Maleate 5 mg 04/27/19 13:30 04/29/19 10:53 Vasotec - PO 5 mg DAILY GINA Administration Escitalopram Oxalate 10 mg 04/27/19 10:00 04/29/19 10:54 Lexapro - PO 10 mg DAILY GINA Administration Gabapentin 100 mg 04/26/19 22:00 04/29/19 06:26 Neurontin - PO 100 mg TID GINA Administration Metoprolol Succinate 50 mg 04/26/19 22:00 04/29/19 10:53 Toprol Xl - PO 50 mg BID GINA Administration Non-Formulary Medication 0.5 mg 04/26/19 22:00 Pramipexole Di-Hcl [Pramipexole Er] PO [facility] Pyridoxine HCl 100 mg 04/27/19 10:15 04/29/19 10:53 Vitamin B6 - PO 100 mg DAILY [facility]INA Administration Ranitidine HCl 150 mg 04/26/19 22:00 04/29/19 10:54 Zantac - PO 150 mg BID [facility]INA Administration Tramadol HCl 50 mg 04/26/19 22:00 04/29/19 06:26 Ultram - PO 50 mg TID GINA Administration S1 S2 RRR Lungs clear Abd -soft, NT No edema PLAN -- stress test mild ischemia-- spoke with Dr Lay-- will be transferring pt to tertiary hospital for cath-- [facility]
[2019-04-29] MEDS: ATORVASTATIN CA 10 MG TABLET (FP) PO SCH (21:30)
--- NOTE | 2019-04-30 05:02 | PN ---
Progress Note, Physician Chief Complaint: Pt A&Ox3; able to ambulate slowly (pt has numbness of both legs from "neuropathy "; walks slowly, with gait disturbance) without chest pain. History of Present Illness: 78 yo male (mathieu Aleman) with PMHx lung ca s/p lebectomy/ chemo 15 yrs ago, prostate CA, htn, diastolic CHF, overweight, now here wtih c/o headache/blurry vision ("my eyeglasses are no good") and chest pain. pt describes chest pain as beginning when he woke up with in early am, with substernal tightness at rest, left sided, that gradually increased from mild to moderately severe, with associated sob, nausea, lightheaded. The pain lasted for hours: no vomiting. no radiation of pain. no other complaints. no h/o pe or dvt. He does have chronic leg pain for which he gets annual dopplers; no cough. Headache is mild and constant. Hx small bowel obstruction-->surgery; inquinal hernia repair; s/p appendectomy; s/p lung lobectomy. Pt's previous episode of chest discomfort was years ago. Hx stress MIBI several years ago that was reportedly negative for ischemia. Pt exercises at home (marching in place; walking in hallways) without chest pain or dyspnea. He does so slowly, however, and with gait abnormality (blames it on "neuropathy"). - Current Medication List Current Medications: Active Medications Acetaminophen (Tylenol -) 650 mg PO Q6H PRN PRN Reason: PAIN LEVEL 1-5 OR FEVER Last Admin: 04/27/19 10:12 Dose: 650 mg Amlodipine Besylate (Norvasc -) 10 mg PO DAILY [facility] Last Admin: 04/29/19 10:53 Dose: 10 mg Ascorbic Acid (Vitamin C -) 500 mg PO DAILY [facility] Last Admin: 04/29/19 10:54 Dose: 500 mg Aspirin (Ecotrin -) 81 mg PO DAILY [facility] Last Admin: 04/29/19 10:53 Dose: 81 mg Atorvastatin Calcium (Lipitor -) 10 mg PO HS [facility] Last Admin: 04/29/19 21:30 Dose: 10 mg Cyanocobalamin (Vitamin B12 -) 500 mcg PO DAILY [facility] Last Admin: 04/29/19 10:54 Dose: 500 mcg Diphenhydramine HCl (Benadryl -) 50 mg PO HS PRN PRN Reason: INSOMNIA Last Admin: 04/29/19 21:31 Dose: 50 mg Docusate Sodium (Colace -) 100 mg PO DAILY [facility] Last Admin: 04/29/19 10:54 Dose: 100 mg Enalapril Maleate (Vasotec -) 5 mg PO DAILY [facility] Last Admin: 04/29/19 10:53 Dose: 5 mg Escitalopram Oxalate (Lexapro -) 10 mg PO DAILY [facility] Last Admin: 04/29/19 10:54 Dose: 10 mg Gabapentin (Neurontin -) 100 mg PO TID [facility] Last Admin: 04/29/19 21:30 Dose: 100 mg Metoprolol Succinate (Toprol Xl -) 50 mg PO BID [facility] Last Admin: 04/29/19 21:30 Dose: 50 mg Non-Formulary Medication (Pramipexole Di-Hcl [Pramipexole Er]) 0.5 mg PO [facility] Pyridoxine HCl (Vitamin B6 -) 100 mg PO DAILY [facility] Last Admin: 04/29/19 10:53 Dose: 100 mg Ranitidine HCl (Zantac -) 150 mg PO BID [facility] Last Admin: 04/29/19 21:30 Dose: 150 mg Tramadol HCl (Ultram -) 50 mg PO TID [facility] Last Admin: 04/29/19 21:30 Dose: 50 mg - Objective Vital Signs: Vital Signs Temperature 98.2 F 04/30/19 01:30 Pulse Rate 57 L 04/30/19 01:30 Respiratory Rate 18 04/30/19 01:30 Blood Pressure 144/77 04/30/19 01:30 O2 Sat by Pulse Oximetry (%) 96 04/29/19 21:00 Constitutional: Yes: No Distress Eyes: Yes: WNL HENT: Yes: WNL Neck: Yes: WNL Cardiovascular: Yes: S1, S2, S4 Respiratory: Yes: WNL Gastrointestinal: Yes: WNL ...Rectal Exam: Yes: Deferred Genitourinary: No: Anuria Breast(s): Yes: WNL Musculoskeletal: Yes: Muscle Weakness Extremities: Yes: WNL Edema: No Peripheral Pulses WNL: Yes Integumentary: Yes: WNL Neurological: Yes: Alert, Oriented, Numbness (legs (chronic; "neuopathy)) Psychiatric: Yes: WNL Labs: CBC, BMP 04/26/19 14:30 04/28/19 05:35 INR, PTT INR 1.01 (0.83-1.09) 04/26/19 17:30 - ....Imaging Other: Image Reviewed (telemetry: NSR; no arrhythmias) Problem List - Problems (1) HTN (hypertension) Assessment/Plan: on metoprolol, enalapril, and amlodipine. F/u serial BP and HR. BUN/Cr, electrolytes. Code(s): I10 - ESSENTIAL (PRIMARY) HYPERTENSION (2) Head ache Assessment/Plan: CT head: no acute pathology; volume loss; likely microvascular ischemic disease changes periventrically; MRI with contrast noted as test of choice to r/o metastases Code(s): R51 - HEADACHE (3) Chronic diastolic (congestive) heart failure Code(s): I50.32 - CHRONIC DIASTOLIC (CONGESTIVE) HEART FAILURE (4) H/O prostate cancer Code(s): Z85.46 - PERSONAL HISTORY OF MALIGNANT NEOPLASM OF PROSTATE (5) History of lobectomy of lung Code(s): Z90.2 - ACQUIRED ABSENCE OF LUNG [PART OF] (6) History of lung cancer Assessment/Plan: F?u with oncologist. Code(s): Z85.118 - PERSONAL HISTORY OF MALIGNANT NEOPLASM OF BRONCHUS AND LUNG (7) Small bowel obstruction Code(s): K56.609 - UNSP INTESTNL OBST, UNSP TO PARTIAL VERSUS COMPLETE OBST (8) Anxiety Assessment/Plan: Pt is worried the headache and visual changes mean he may have a tumor of the brain. Code(s): F41.9 - ANXIETY DISORDER, UNSPECIFIED (9) Chest pain Assessment/Plan: Stress MIBI: small area mildly intense inferior wall ischemia. Pt will undergo coronary angiogram at [facility]. ASA, clopidogrel. Code(s): R07.9 - CHEST PAIN, UNSPECIFIED
[2019-04-30] MEDS: GABAPENTIN 100 MG CAPSULE (FP) PO SCH ×3 (05:58→22:08)
[2019-04-30] MEDS: traMADol HCL 50 MG TABLET PO SCH ×3 (05:58→22:07)
[2019-04-30] MEDS: ASPIRIN COATED 81 MG TABLET.EC PO SCH ×2 (08:31→11:39)
[2019-04-30] MEDS: ACETAMINOPHEN 325 MG TABLET (FP) PO PRN (09:09)
[2019-04-30] MEDS: RANITIDINE HCL 150 MG TABLET (FP) PO SCH ×2 (09:48→22:07)
[2019-04-30] MEDS: amLODIPine BESYLATE 10 MG TABLET (FP) PO SCH (09:48)
[2019-04-30] MEDS: CYANOCOBALAMIN 1,000 MCG TABLET (FP) PO SCH (09:48)
[2019-04-30] MEDS: PYRIDOXINE HCL (B-6) 50 MG TABLET (FP) PO SCH (09:54)
[2019-04-30] MEDS: DOCUSATE SODIUM 100 MG CAPSULE (FP) PO SCH (09:54)
[2019-04-30] MEDS: ENALAPRIL MALEATE 5 MG TABLET (FP) PO SCH (09:54)
[2019-04-30] MEDS: ESCITALOPRAM OXALATE 10 MG TABLET (FP) PO SCH (09:54)
[2019-04-30] MEDS: ASCORBIC ACID 500 MG TABLET (FP) PO SCH (09:54)
--- NOTE | 2019-04-30 11:06 | EKG ---
Test Reason : Blood Pressure : / mmHG Vent. 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
--- NOTE | 2019-04-30 12:40 | PN ---
Progress Note, Physician History of Present Illness: 78 yo male (mathieu Aleman) with PMHx h/o lung ca s/p lebectomy/ chemo 15 yrs ago, ? prostate CA, htn, diastolic CHF, overweight, now here wtih c/o headache/ blurry vision ("my eyeglasses are no good") and chest pain. pt describes chest pain he woke up with in early am, with substernal tightness at rest, left sided , that gradually increased from mild to moderately severe, with associated sob, nausea, lightheaded. The pain lasted for hours. no vomiting. no radiation of pain. no other complaints. no h/o pe or dvt. does have chronic leg pain for which he gets annual dopplers,. no cough no f/c headache is mild constant. Hx small bowel obstruction-->surgery; inquinal hernia repair; s/p appendectomy; s/p lung lobectomy. Pt's last episode of chest discomfort was years ago. Hx stress MIBI several years ago that was reportedly negative for ischemia. Pt exercises at home (marching in place; walking in hallways) without chest pain or dyspnea. - Current Medication List Current Medications: Active Medications Acetaminophen (Tylenol -) 650 mg PO Q6H PRN PRN Reason: PAIN LEVEL 1-5 OR FEVER Last Admin: 04/30/19 09:09 Dose: 650 mg Amlodipine Besylate (Norvasc -) 10 mg PO DAILY [facility] Last Admin: 04/30/19 09:48 Dose: 10 mg Ascorbic Acid (Vitamin C -) 500 mg PO DAILY [facility] Last Admin: 04/30/19 09:54 Dose: 500 mg Aspirin (Ecotrin -) 81 mg PO DAILY [facility] Last Admin: 04/30/19 11:39 Dose: Not Given Atorvastatin Calcium (Lipitor -) 10 mg PO HS [facility] Last Admin: 04/29/19 21:30 Dose: 10 mg Cyanocobalamin (Vitamin B12 -) 500 mcg PO DAILY [facility] Last Admin: 04/30/19 09:48 Dose: 500 mcg Diphenhydramine HCl (Benadryl -) 50 mg PO HS PRN PRN Reason: INSOMNIA Last Admin: 04/29/19 21:31 Dose: 50 mg Docusate Sodium (Colace -) 100 mg PO DAILY [facility] Last Admin: 04/30/19 09:54 Dose: 100 mg Enalapril Maleate (Vasotec -) 5 mg PO DAILY [facility] Last Admin: 04/30/19 09:54 Dose: 5 mg Escitalopram Oxalate (Lexapro -) 10 mg PO DAILY [facility] Last Admin: 04/30/19 09:54 Dose: 10 mg Gabapentin (Neurontin -) 100 mg PO TID [facility] Last Admin: 04/30/19 05:58 Dose: Not Given Metoprolol Succinate (Toprol Xl -) 50 mg PO BID [facility] Last Admin: 04/30/19 11:39 Dose: Not Given Non-Formulary Medication (Pramipexole Di-Hcl [Pramipexole Er]) 0.5 mg PO [facility] Pyridoxine HCl (Vitamin B6 -) 100 mg PO DAILY [facility] Last Admin: 04/30/19 09:54 Dose: 100 mg Ranitidine HCl (Zantac -) 150 mg PO BID [facility] Last Admin: 04/30/19 09:48 Dose: 150 mg Tramadol HCl (Ultram -) 50 mg PO TID [facility] Last Admin: 04/30/19 05:58 Dose: Not Given - Objective Vital Signs: Vital Signs Temperature 97.5 F L 04/30/19 12:11 Pulse Rate 56 L 04/30/19 12:11 Respiratory Rate 16 04/30/19 12:11 Blood Pressure 138/68 04/30/19 12:11 O2 Sat by Pulse Oximetry (%) 100 04/30/19 11:35 Eyes: Yes: WNL, Conjunctiva Clear, EOM Intact HENT: Yes: WNL, Atraumatic, Normocephalic Neck: Yes: WNL, Supple, Trachea Midline Cardiovascular: Yes: WNL, Regular Rate and Rhythm Respiratory: Yes: WNL, Regular, CTA Bilaterally Gastrointestinal: Yes: WNL, Normal Bowel Sounds Genitourinary: Yes: WNL Musculoskeletal: Yes: WNL Extremities: Yes: WNL Edema: No Integumentary: Yes: WNL Neurological: Yes: WNL, Alert, Oriented ...Motor Strength: WNL Psychiatric: Yes: WNL Labs: CBC, BMP 04/26/19 14:30 04/28/19 05:35 INR, PTT INR 1.01 (0.83-1.09) 04/26/19 17:30 Problem List - Problems (1) Anxiety Code(s): F41.9 - ANXIETY DISORDER, UNSPECIFIED (2) Atypical chest pain Code(s): R07.89 - OTHER CHEST PAIN (3) CKD (chronic kidney disease) Code(s): N18.9 - CHRONIC KIDNEY DISEASE, UNSPECIFIED (4) Chest pain Code(s): R07.9 - CHEST PAIN, UNSPECIFIED (5) HTN (hypertension) Code(s): I10 - ESSENTIAL (PRIMARY) HYPERTENSION (6) Head ache Code(s): R51 - HEADACHE (7) Chronic diastolic (congestive) heart failure Code(s): I50.32 - CHRONIC DIASTOLIC (CONGESTIVE) HEART FAILURE (8) Dog bite - wound Code(s): W54.0XXA - BITTEN BY DOG, INITIAL ENCOUNTER (9) Epigastric pain Code(s): R10.13 - EPIGASTRIC PAIN (10) H/O prostate cancer Code(s): Z85.46 - PERSONAL HISTORY OF MALIGNANT NEOPLASM OF PROSTATE (11) History of lobectomy of lung Code(s): Z90.2 - ACQUIRED ABSENCE OF LUNG [PART OF] (12) History of lung cancer Code(s): Z85.118 - PERSONAL HISTORY OF MALIGNANT NEOPLASM OF BRONCHUS AND LUNG (13) Hypovolemia associated with vomiting Code(s): E86.1 - HYPOVOLEMIA (14) Nausea and vomiting Code(s): R11.2 - NAUSEA WITH VOMITING, UNSPECIFIED Qualifiers: Vomiting type: unspecified Vomiting Intractability: non-intractable Qualified Code(s): R11.2 - Nausea with vomiting, unspecified (15) Small bowel obstruction Code(s): K56.609 - UNSP INTESTNL OBST, UNSP TO PARTIAL VERSUS COMPLETE OBST (16) Small bowel obstruction due to adhesions Code(s): K56.50 - INTESTNL ADHESIONS, UNSP TO PARTIAL VERSUS COMPLETE OBST (17) Thermal nava of multiple sites Code(s): T30.0 - BURN OF UNSPECIFIED BODY REGION, UNSPECIFIED DEGREE Assessment/Plan - Problems (1) HTN (hypertension) Assessment/Plan: on metoprolol, enalapril, and amlodipine. F/u serial BP and HR. BUN/Cr, electrolytes. Code(s): I10 - ESSENTIAL (PRIMARY) HYPERTENSION (2) Head ache Assessment/Plan: CT head: no acute pathology; volume loss; likely microvascular ischemic disease changes periventrically; MRI with contrast noted as test of choice to r/o metastases Code(s): R51 - HEADACHE (3) Chronic diastolic (congestive) heart failure Code(s): I50.32 - CHRONIC DIASTOLIC (CONGESTIVE) HEART FAILURE (4) H/O prostate cancer Code(s): Z85.46 - PERSONAL HISTORY OF MALIGNANT NEOPLASM OF PROSTATE (5) History of lobectomy of lung Code(s): Z90.2 - ACQUIRED ABSENCE OF LUNG [PART OF] (6) History of lung cancer Assessment/Plan: F?u with oncologist. Code(s): Z85.118 - PERSONAL HISTORY OF MALIGNANT NEOPLASM OF BRONCHUS AND LUNG (7) Small bowel obstruction Code(s): K56.609 - UNSP INTESTNL OBST, UNSP TO PARTIAL VERSUS COMPLETE OBST (8) Anxiety Assessment/Plan: Pt is worried the headache and visual changes mean he may have a tumor of the brain. Code(s): F41.9 - ANXIETY DISORDER, UNSPECIFIED (9) Chest pain Assessment/Plan: Stress MIBI: small area mildly intense inferior wall ischemia. Pt will undergo coronary angiogram at [facility]. ASA, clopidogrel. Code(s): R07.9 - CHEST PAIN, UNSPECIFIED
--- NOTE | 2019-04-30 13:08 | PN ---
Progress Note (short form) - Note Progress Note: Events noted No chest pain Vital Signs - 24 hr 04/29/19 04/29/19 04/29/19 14:00 18:18 21:00 Temperature 98.0 F 98.0 F 98.7 F Pulse Rate 61 68 70 Respiratory 18 18 Rate Blood Pressure 141/73 147/82 163/87 O2 Sat by Pulse 96 Oximetry (%) 04/30/19 04/30/19 04/30/19 01:30 08:28 09:00 Temperature 98.2 F 98.1 F 98.1 F Pulse Rate 57 L 59 L 55 L Respiratory 18 13 15 Rate Blood Pressure 144/77 154/75 161/76 O2 Sat by Pulse 96 Oximetry (%) 04/30/19 04/30/19 11:35 12:11 Temperature 97.5 F L Pulse Rate 56 L Respiratory 16 Rate Blood Pressure 138/68 O2 Sat by Pulse 100 Oximetry (%) Current Medications Generic Name Dose Route Start Last Admin Trade Name Freq PRN Reason Stop Dose Admin Acetaminophen 650 mg 04/27/19 09:59 04/30/19 09:09 Tylenol - PO 650 mg Q6H PRN Administration PAIN LEVEL 1-5 OR FEVER Amlodipine Besylate 10 mg 04/27/19 10:00 04/30/19 09:48 Norvasc - PO 10 mg DAILY [facility] Administration Ascorbic Acid 500 mg 04/27/19 10:00 04/30/19 09:54 Vitamin C - PO 500 mg DAILY [facility] Administration Aspirin 81 mg 04/27/19 10:00 04/30/19 11:39 Ecotrin - PO Not Given DAILY [facility] Atorvastatin Calcium 10 mg 04/26/19 22:00 04/29/19 21:30 Lipitor - PO 10 mg HS [facility] Administration Cyanocobalamin 500 mcg 04/27/19 10:00 04/30/19 09:48 Vitamin B12 - PO 500 mcg DAILY [facility] Administration Diphenhydramine HCl 50 mg 04/28/19 21:17 04/29/19 21:31 Benadryl - PO 50 mg HS PRN Administration INSOMNIA Docusate Sodium 100 mg 04/27/19 10:00 04/30/19 09:54 Colace - PO 100 mg DAILY [facility] Administration Enalapril Maleate 5 mg 04/27/19 13:30 04/30/19 09:54 Vasotec - PO 5 mg DAILY [facility] Administration Escitalopram Oxalate 10 mg 04/27/19 10:00 04/30/19 09:54 Lexapro - PO 10 mg DAILY [facility] Administration Gabapentin 100 mg 04/26/19 22:00 04/30/19 05:58 Neurontin - PO Not Given TID [facility] Metoprolol Succinate 50 mg 04/26/19 22:00 04/30/19 11:39 Toprol Xl - PO Not Given BID [facility] Non-Formulary Medication 0.5 mg 04/26/19 22:00 Pramipexole Di-Hcl [Pramipexole Er] PO [facility] Pyridoxine HCl 100 mg 04/27/19 10:15 04/30/19 09:54 Vitamin B6 - PO 100 mg DAILY [facility] Administration Ranitidine HCl 150 mg 04/26/19 22:00 04/30/19 09:48 Zantac - PO 150 mg BID [facility] Administration Tramadol HCl 50 mg 04/26/19 22:00 04/30/19 05:58 Ultram - PO Not Given TID [facility] S1 S2 RRR Lungs clear Abd -soft, NT No edema PLAN -- stress test mild ischemia-- spoke with Dr Lay-- will be transferring pt to [facility] for cath-- [facility]
[2019-04-30] MEDS: ATORVASTATIN CA 10 MG TABLET (FP) PO SCH (22:07)
[2019-05-01] MEDS: traMADol HCL 50 MG TABLET PO SCH (05:34)
[2019-05-01] MEDS: GABAPENTIN 100 MG CAPSULE (FP) PO SCH (05:35)
[2019-05-01 08:30] VITALS: BP 155/86; PULSE 65; TEMP 98.3
[2019-05-01] MEDS: DOCUSATE SODIUM 100 MG CAPSULE (FP) PO SCH (10:08)
[2019-05-01] MEDS: ESCITALOPRAM OXALATE 10 MG TABLET (FP) PO SCH (10:08)
[2019-05-01] MEDS: ASPIRIN COATED 81 MG TABLET.EC PO SCH (10:09)
[2019-05-01] MEDS: ENALAPRIL MALEATE 5 MG TABLET (FP) PO SCH (10:09)
[2019-05-01] MEDS: RANITIDINE HCL 150 MG TABLET (FP) PO SCH (10:09)
[2019-05-01] MEDS: amLODIPine BESYLATE 10 MG TABLET (FP) PO SCH (10:09)
[2019-05-01] MEDS: CYANOCOBALAMIN 1,000 MCG TABLET (FP) PO SCH (10:09)
[2019-05-01] MEDS: ASCORBIC ACID 500 MG TABLET (FP) PO SCH (10:10)
[2019-05-01] MEDS: PYRIDOXINE HCL (B-6) 50 MG TABLET (FP) PO SCH (10:10)
--- NOTE | 2019-05-01 10:45 | DS ---
Physical Examination Vital Signs: Vital Signs Temperature 98.3 F 05/01/19 08:29 Pulse Rate 65 05/01/19 08:29 Respiratory Rate 18 05/01/19 08:29 Blood Pressure 155/86 05/01/19 08:29 O2 Sat by Pulse Oximetry (%) 100 04/30/19 21:00 Constitutional: Yes: No Distress, Calm Cardiovascular: Yes: Regular Rate and Rhythm Respiratory: Yes: CTA Bilaterally Gastrointestinal: Yes: Normal Bowel Sounds, Soft. No: Tenderness Edema: No Labs: CBC, BMP 04/26/19 14:30 04/28/19 05:35 Discharge Summary Problems reviewed: Yes Reason For Visit: CHEST PAIN Current Active Problems Anxiety (Acute) CKD (chronic kidney disease) (Acute) Chest pain (Acute) HTN (hypertension) (Acute) Head ache (Acute) Plan of Treatment: Admission-- HISTORY OF PRESENT ILLNESS: 78 yo male h/o lung ca s/p lebectomy/ chemo 15 yrs ago, htn, here wtih c/o headache and chest pain. pt describes chest pain, substernal, left sided, did get associated sob, nausea, lightheaded. no vomiting. no radiation of pain. no other complaints. no h/o pe or dvt. does have chronic leg pain for which he gets annual dopplers,. no cough no f/c headache is mild constant. He has ct head done in er and it is normal no sign of any ic lesions. He is pain free now and no more headache since he has received tyelnol as well, He has good appetite and has h/o abdominal pains with taking aspirin. 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 patient said he had stress test cardio last year and it was negative. ER course was notable for: (1)headache (2)chest pains (3)stress test last year negative Recent Travel:none family not significant PAST MEDICAL HISTORY: Htn, bph, lung cancer Prostate cancer. PAST SURGICAL HISTORY: lobectomy for lung cancer Pt was evaluated by cardiology Was admitted in telemetry cardiac enzymes negative stress test-- mild ischemia-- decision made to transfer pt to [facility] for cardiac cath Condition: Stable - Instructions Disposition: TRANSFER ACUTE CARE/OTHER HOSP - Home Medications Comprehensive Discharge Medication List: Ambulatory Orders Amlodipine Besylate [Norvasc -] 10 mg PO DAILY 04/26/19 Ascorbic Acid [Vitamin C] 500 mg PO DAILY 04/26/19 Atorvastatin Ca [Lipitor] 10 mg PO HS 04/26/19 Cyanocobalamin [Vitamin B12 -] 500 mcg PO DAILY 04/26/19 Docusate Sodium [Colace] 100 mg PO DAILY 04/26/19 Escitalopram Oxalate [Lexapro -] 10 mg PO DAILY 04/26/19 Gabapentin 100 mg PO TID 04/26/19 Magnesium 500 mg PO DAILY 04/26/19 Metoprolol Succinate [Toprol Xl] 50 mg PO BID 04/26/19 Pramipexole Di-HCl [Pramipexole ER] 0.5 mg PO HS 04/26/19 Pyridoxine HCl (B-6) [Vitamin B6 -] 100 mg PO DAILY 04/26/19 Tramadol HCl 50 mg PO TID 04/26/19 Aspirin Coated [Ecotrin -] 81 mg PO DAILY tablet.ec 04/28/19 Enalapril Maleate [Vasotec -] 5 mg PO DAILY tablet 04/28/19 Ranitidine [Zantac -] 150 mg PO BID tablet 04/28/19
--- NOTE | 2019-05-01 12:48 | PN ---
Progress Note, Physician Chief Complaint: Pt A&Ox3;asymptomatic. History of Present Illness: 78 yo male (mathieu Aleman) with PMHx lung ca s/p lebectomy/ chemo 15 yrs ago, prostate CA, htn, diastolic CHF, overweight, now here wtih c/o headache/blurry vision ("my eyeglasses are no good") and chest pain. pt describes chest pain as beginning when he woke up with in early am, with substernal tightness at rest, left sided, that gradually increased from mild to moderately severe, with associated sob, nausea, lightheaded. The pain lasted for hours: no vomiting. no radiation of pain. no other complaints. no h/o pe or dvt. He does have chronic leg pain for which he gets annual dopplers; no cough. Headache is mild and constant. Hx small bowel obstruction-->surgery; inquinal hernia repair; s/p appendectomy; s/p lung lobectomy. Pt's previous episode of chest discomfort was years ago. Hx stress MIBI several years ago that was reportedly negative for ischemia. Pt exercises at home (marching in place; walking in hallways) without chest pain or dyspnea. He does so slowly, however, and with gait abnormality (blames it on "neuropathy"). - Current Medication List Current Medications: Active Medications Acetaminophen (Tylenol -) 650 mg PO Q6H PRN PRN Reason: PAIN LEVEL 1-5 OR FEVER Last Admin: 04/30/19 09:09 Dose: 650 mg Amlodipine Besylate (Norvasc -) 10 mg PO DAILY [facility] Last Admin: 05/01/19 10:09 Dose: 10 mg Ascorbic Acid (Vitamin C -) 500 mg PO DAILY [facility] Last Admin: 05/01/19 10:10 Dose: 500 mg Aspirin (Ecotrin -) 81 mg PO DAILY [facility] Last Admin: 05/01/19 10:09 Dose: 81 mg Atorvastatin Calcium (Lipitor -) 10 mg PO HS [facility] Last Admin: 04/30/19 22:07 Dose: 10 mg Cyanocobalamin (Vitamin B12 -) 500 mcg PO DAILY [facility] Last Admin: 05/01/19 10:09 Dose: 500 mcg Diphenhydramine HCl (Benadryl -) 50 mg PO HS PRN PRN Reason: INSOMNIA Last Admin: 04/29/19 21:31 Dose: 50 mg Docusate Sodium (Colace -) 100 mg PO DAILY [facility] Last Admin: 05/01/19 10:08 Dose: 100 mg Enalapril Maleate (Vasotec -) 5 mg PO DAILY [facility] Last Admin: 05/01/19 10:09 Dose: 5 mg Escitalopram Oxalate (Lexapro -) 10 mg PO DAILY [facility] Last Admin: 05/01/19 10:08 Dose: 10 mg Gabapentin (Neurontin -) 100 mg PO TID [facility] Last Admin: 05/01/19 05:35 Dose: 100 mg Metoprolol Succinate (Toprol Xl -) 50 mg PO BID [facility] Last Admin: 05/01/19 10:09 Dose: 50 mg Non-Formulary Medication (Pramipexole Di-Hcl [Pramipexole Er]) 0.5 mg PO [facility] Pyridoxine HCl (Vitamin B6 -) 100 mg PO DAILY [facility] Last Admin: 05/01/19 10:10 Dose: 100 mg Ranitidine HCl (Zantac -) 150 mg PO BID [facility] Last Admin: 05/01/19 10:09 Dose: 150 mg Tramadol HCl (Ultram -) 50 mg PO TID [facility] Last Admin: 05/01/19 05:34 Dose: 50 mg - Objective Vital Signs: Vital Signs Temperature 98.3 F 05/01/19 08:29 Pulse Rate 65 05/01/19 08:29 Respiratory Rate 18 05/01/19 08:29 Blood Pressure 155/86 05/01/19 08:29 O2 Sat by Pulse Oximetry (%) 100 04/30/19 21:00 Labs: CBC, BMP 04/26/19 14:30 04/28/19 05:35 INR, PTT INR 1.01 (0.83-1.09) 04/26/19 17:30 Problem List - Problems (1) HTN (hypertension) Code(s): I10 - ESSENTIAL (PRIMARY) HYPERTENSION (2) Head ache Code(s): R51 - HEADACHE (3) Chronic diastolic (congestive) heart failure Code(s): I50.32 - CHRONIC DIASTOLIC (CONGESTIVE) HEART FAILURE (4) H/O prostate cancer Code(s): Z85.46 - PERSONAL HISTORY OF MALIGNANT NEOPLASM OF PROSTATE (5) History of lobectomy of lung Code(s): Z90.2 - ACQUIRED ABSENCE OF LUNG [PART OF] (6) History of lung cancer Code(s): Z85.118 - PERSONAL HISTORY OF MALIGNANT NEOPLASM OF BRONCHUS AND LUNG (7) Small bowel obstruction Code(s): K56.609 - UNSP INTESTNL OBST, UNSP TO PARTIAL VERSUS COMPLETE OBST (8) Anxiety Code(s): F41.9 - ANXIETY DISORDER, UNSPECIFIED (9) Chest pain Assessment/Plan: Stress MIBI: small area mildly intense inferior wall ischemia. Pt will undergo [facility] angiogram at [facility] today. ASA, clopidogrel. Code(s): R07.9 - CHEST PAIN, UNSPECIFIED
== END 2019-05-01 13:54 | disposition short-term general hospital (02) | DRG 311 ==
LOC: JER 13:47 → JERBED 17:41 → J4W 22:35 → OBSVTOIN 04-27 13:16
PROVIDERS: ADMIT Internal Medicine; ATTEND Internal Medicine
DX: I24.9 Acute ischemic heart disease, unspecified (principal); I50.32 Chronic diastolic (congestive) heart failure; I13.0 Hypertensive heart and chronic kidney disease with heart failure and stage 1 through stage 4 chronic kidney disease, or unspecified chronic kidney disease; K56.609 Unspecified intestinal obstruction, unspecified as to partial versus complete obstruction; E78.5 Hyperlipidemia, unspecified; R51 Headache; G62.9 Polyneuropathy, unspecified; E78.00 Pure hypercholesterolemia, unspecified; F41.8 Other specified anxiety disorders; H53.8 Other visual disturbances; E66.3 Overweight; N18.9 Chronic kidney disease, unspecified; Z68.30 Body mass index [BMI] 30.0-30.9, adult; N40.0 Benign prostatic hyperplasia without lower urinary tract symptoms; Z87.11 Personal history of peptic ulcer disease; Z85.46 Personal history of malignant neoplasm of prostate; Z85.118 Personal history of other malignant neoplasm of bronchus and lung; Z90.2 Acquired absence of lung [part of]
CPT/HCPCS: 36415; 70450-TC; 71045-TC-FY; 78452-TC; 80053; 80061; 82550; 83721; 83735; 84443; 84484; 85025; 85610; 85730; 93005; 93010; 93017; 93306-TC; 99285-25; A9502; G0378; J0131; J2785; J7030

== ENCOUNTER 2019-05-16 07:24 | Emergency (ER) | payer OTHER, BC ==
[2019-05-16 07:46] VITALS: BP 136/70; PULSE 56; TEMP 97.4; BMI 29.2
--- NOTE | 2019-05-16 07:47 | PDOC ---
Attending Attestation - Resident Resident Name: Fransico Beatty - ED Attending Attestation I have performed the following: I have examined & evaluated the patient, The case was reviewed & discussed with the resident, I agree w/resident's findings & plan, Exceptions are as noted - HPI HPI: 05/16/19 07:45 78y M hx of htn, hld, pud, chronic headaches, lung ca (sp lobectomy, sp chemo in remission x15yrs), prostate ca (remission) LE neuropathy sp chemo,presents to the ED for evaluation of CP. The ptaient had a recent admission for chest pain in Apr 26 here at [facility], was transferred out for a PCI that was reportedly did not meet threshold for intervention. Pt had an episode of sharp L sided cp that resolved after appox 20 min yesterday while ambuling. Today he woke u with anohe repisode of L sided cp that resolved wih ntg by EMS. Pt denies any associaed diaphoresis, n/v, sob, abd pain, back pain, numbness/ tingling/weakness Cardiology: Alireza - Physicial Exam PE: 05/16/19 10:02 GENERAL: The patient is awake, alert, and fully oriented, Nontoxic - in no acute distress. HEAD: Normocephalic, atraumatic. LUNGS: Breath sounds equal, clear to auscultation bilaterally. No wheezes, no rhonchi, no rales. HEART: Regular rate and rhythm, normal S1 and S2 without murmur, rub or gallop. ABDOMEN: Soft, nontender, No guarding, no rebound. No CVA tenderness NEUROLOGICAL: No facial assymetry, Normal speech, PSYCH: Normal mood, normal affect. SKIN: Warm, Dry, normal turgor, - Medical Decision Making 05/16/19 10:02 78y M hx presenting w atypical sharp chest pain - recent neg pci pt not in curent pain will trop neg sp ntg and asa by EMS ekg nonischemic will discuss with dr. forde 05/16/19 11:[address] forde - as pts cath was neg, will obtain trop x 2 and dc pt for out pt cardiac rehab
--- NOTE | 2019-05-16 08:31 | PDOC ---
History of Present Illness - General Chief Complaint: Chest Pain Stated Complaint: CHEST PAIN Time Seen by Provider: 05/16/19 07:39 - History of Present Illness Initial Comments: 05/16/19 08:21 This is a 78 yearold male with PMH significant for HTN, HLD, Lung CA( s/p LLL removal) and Prostate CA (s/p prostatectomy).He now presents to the ER, brought from home via EMS after he woke up at 5 AM with Left sided chest pain. The pain was 8/10, sharp in quality, constant in nature, non-radiating, and not related to exertion. He called his son, who called an ambulance. EMS administered 2x Nitroglycerin and 4x Aspirin 81mg, after which the chest pain subsided. He currently endorses a mild headache which started after he took Nitroglycerin, and denies fever, chills, nausea, vomiting, diarrhea, SOB, palpitations, dizziness, hematuria, dysuria, or abdominal pain. He was previously seen at the [facility] ER on Apr 26 after he presented with complaints of similar chest pain. He was transferred to [facility] and underwent angiogram but no angioplasty. Past History - Past Medical History Allergies/Adverse Reactions: Allergies Allergy/AdvReac Type Severity Reaction Status Date / Time No Known Allergies Allergy Verified 05/16/19 07:46 Home Medications: Ambulatory Orders Amlodipine Besylate [Norvasc -] 10 mg PO DAILY 04/26/19 Ascorbic Acid [Vitamin C] 500 mg PO DAILY 04/26/19 Cyanocobalamin [Vitamin B12 -] 500 mcg PO DAILY 04/26/19 Docusate Sodium [Colace] 100 mg PO DAILY 04/26/19 Escitalopram Oxalate [Lexapro -] 10 mg PO DAILY 04/26/19 Gabapentin 100 mg PO TID 04/26/19 Magnesium 500 mg PO DAILY 04/26/19 Metoprolol Succinate [Toprol Xl] 50 mg PO BID 04/26/19 Pramipexole Di-HCl [Pramipexole ER] 0.5 mg PO HS 04/26/19 Pyridoxine HCl (B-6) [Vitamin B6 -] 100 mg PO DAILY 04/26/19 Tramadol HCl 50 mg PO TID 04/26/19 Aspirin Coated [Ecotrin -] 81 mg PO DAILY tablet.ec 04/28/19 Enalapril Maleate [Vasotec -] 5 mg PO DAILY tablet 04/28/19 Ranitidine [Zantac -] 150 mg PO BID tablet 04/28/19 Atorvastatin Ca [Lipitor] 20 mg PO HS #30 tablet 05/16/19 Clopidogrel Bisulfate [Plavix] 75 mg PO 05/16/19 Cancer: Yes (prostate + lung) Cardiac Disorders: Yes CVA: No COPD: No GI Disorders: Yes (Hernia) HTN: Yes Hypercholesterolemia: Yes Lung CA: Yes (lobectomy) - Surgical History Abdominal Surgery: Yes (hernia repair) Appendectomy: Yes Lung Surgery: Yes - Immunization History Immunization Up to Date: No - Psycho Social/Smoking Cessation Hx Smoking Status: No Smoking History: Never smoked Have you smoked in the past 12 months: No Number of Cigarettes Smoked Daily: 0 If you are a former smoker, when did you quit?: ~10 pk-yr hx from teens to 25yo Information on smoking cessation initiated: No 'Breaking Loose' booklet given: 06/26/12 Hx Alcohol Use: No Drug/Substance Use Hx: No Substance Use Type: None Hx Substance Use Treatment: No Review of Systems - Review of Systems Constitutional: Yes: See HPI Respiratory: Yes: See HPI ABD/GI: Yes: See HPI : Yes: See HPI Musculoskeletal: Yes: See HPI Integumentary: Yes: See HPI Neurological: Yes: See HPI Endocrine: Yes: See HPI Hematologic/Lymphatic: Yes: See HPI *Physical Exam - Vital Signs Last Vital Signs Temp Pulse Resp BP Pulse Ox 97.4 F L 56 L 16 136/70 100 05/16/19 07:30 05/16/19 07:30 05/16/19 07:30 05/16/19 07:30 05/16/19 07:30 - Physical Exam Comments: 05/16/19 08:34 General: AOx3, lying comfortable in bed, pleasant and cooperative Eyes: JC, EOM intact Oropharynx: Normal mucosa, no lesions Lungs: Regular breath sounds B/L CVS: RRR, no murmurs GI: Soft, non tender, non distended, normoactive bowel sounds Extremities: No pitting edema, no erythema, no calf tenderness Neuro: Motor 5/5 B/L, sensations intact ED Treatment Course - LABORATORY CBC & Chemistry Diagram: 05/16/19 08:45 05/16/19 08:45 Medical Decision Making - Medical Decision Making 05/16/19 08:49 This is a 78 year old male with PMH significant for HTN, HLD, Lung CA( s/p LLL removal) and Prostate CA (s/p prostatectomy).He now presents to the ER, brought from home via EMS after he woke up at 5 AM with sharp, left sided chest pain unrelated to exertion. - HEART score 5, currently suspecting NSTEMI, EKG unchanged from previous one on 04/26 - PERC 1 WELLS 0, low suspicion of PE - CBC/ CMP - CXR - Mg - BNP - Lipase 05/16/19 10:31 - Spoke with Dr. Lay, he suggested D/Cing if 2nd Trop is negative so patient can be admitted to Cardiac rehab at [place], and increasing Atorvastatin to 20mg. Will follow his recommendations. Discharge - Discharge Information Problems reviewed: Yes Clinical Impression/Diagnosis: Chest pain Condition: Guarded - Admission No - Additional Discharge Information Prescriptions: Atorvastatin Ca [Lipitor] 20 mg PO HS #30 tablet - Follow up/Referral - Patient Discharge Instructions Additional Instructions: You came to the ER because of chest pain. While you were here, we did blood tests as well as a chest X ray and a scan of the heart (EKG). The results for all these tests show nothing that would require emergency treatment at this time. Medications: - Please increase your Atorvastatin dose from 10mg to 20mg by mouth. Follow-up: - We spoke with your dental laboratory technician apprentice, Dr. Lay, who recommended you be sent to a cardiac rehabilitation center to monitor the function of your heart. His office will get in touch with you with further information on how to proceed. - Please follow up with your primary care physician within 1 week. Additional Information: - Please return to the ER if your symptoms worsen. - Post Discharge Activity
[2019-05-16 09:00] LABS: BASO % 0.6 % (0-2.0); EOS % 2.2 % (0-4.5); HEMATOCRIT 42.8 % (35.4-49); HEMOGLOBIN 14.5 GM/dL (11.7-16.9); LYMPH % 19.8 % (8-40); MEAN CELL VOLUME 85.5 fl (80-96); MEAN PLT VOLUME 10.1 fl (7.5-11.1); MONO % 20.2 % (3.8-10.2); NEUT % 57.2 % (42.8-82.8); PLATELET COUNT 165 K/MM3 (134-434); RDW 13.3 % (11.9-15.9); WHITE BLOOD COUNT 6.5 K/mm3 (4.0-10.0)
[2019-05-16 09:14] LABS: MAGNESIUM 2.5 mg/dL (1.8-2.4)
[2019-05-16 09:17] LABS: BILIRUBIN,TOTAL 0.6 mg/dL (0.2-1); BLOOD UREA NITROGEN 18.6 mg/dL (7-18); CALCIUM 9.2 mg/dL (8.5-10.1); CREATININE 1.4 mg/dL (0.55-1.3); POTASSIUM 3.9 mmol/L (3.5-5.1); TOT PROT 7.5 g/dl (6.4-8.2)
[2019-05-16 09:41] LABS: INR 1.04 (0.83-1.09); PROTHROMBIN TIME (PATIENT) 12.3 SEC (9.7-13.0)
[2019-05-16 14:16] LABS: ANISOCYTOSIS 2+; MACROCYTOSIS 0; PLATELET ESTIMATE NORMAL; TEAR DROP CELLS 1+
--- NOTE | 2019-05-16 14:22 | EKG ---
Test Reason : Blood Pressure : / mmHG Vent. Rate : 057 BPM Atrial Rate : 057 BPM P-R Int : 206 ms QRS Dur : 076 ms QT Int : 422 ms P-R-T Axes : 049 -06 035 degrees QTc Int : 410 ms POOR DATA QUALITY, INTERPRETATION MAY BE ADVERSELY AFFECTED SINUS BRADYCARDIA INFERIOR INFARCT (CITED ON OR BEFORE 14-MAY-2018) ABNORMAL ECG WHEN COMPARED WITH ECG OF 30-APR-2019 08:56, NO SIGNIFICANT CHANGE WAS FOUND Confirmed by BRIGITTE DEWEY MD ([id number]) on 05/16/2019 2:21:54 PM Referred By: Confirmed By:BRIGITTE DEWEY MD
== END 2019-05-16 14:10 | disposition home or self-care (01) ==
LOC: JER 07:24
DX: R07.9 Chest pain, unspecified (principal); I10 Essential (primary) hypertension; E78.5 Hyperlipidemia, unspecified; K27.9 Peptic ulcer, site unspecified, unspecified as acute or chronic, without hemorrhage or perforation; Z85.46 Personal history of malignant neoplasm of prostate; Z85.118 Personal history of other malignant neoplasm of bronchus and lung; Z90.2 Acquired absence of lung [part of]; Z90.79 Acquired absence of other genital organ(s); Z98.61 Coronary angioplasty status
CPT/HCPCS: 36415; 71046-TC-FY; 80053; 82550; 83690; 83735; 83880; 84484; 85025; 85610; 93005; 93010; 99284-25

== ENCOUNTER 2020-07-12 19:03 | Emergency (ER) | payer OTHER, BC ==
[2020-07-12 19:15] VITALS: TEMP 98.7; BMI 27.4
[2020-07-12] MEDS ORDERED: KETOROLAC TROMETHAMINE 30 MG/1 ML VIAL IM ONE (21:28)
[2020-07-12] MEDS ORDERED: morphine SULFATE 4 MG/ML VIAL IVPUSH ONE (21:28)
[2020-07-12] MEDS ORDERED: ONDANSETRON 4 MG/2 ML VIAL IVPUSH ONE (21:29)
[2020-07-12] MEDS ORDERED: morphine SULFATE 4 MG/ML VIAL ONE (21:29)
[2020-07-12] MEDS ORDERED: ONDANSETRON 4 MG/2 ML VIAL ONE (21:30)
[2020-07-12 23:55] LABS: HEMATOCRIT 44.4 % (35.4-49); HEMOGLOBIN 14.7 GM/dL (11.7-16.9); MCH 28.1 pg (25.7-33.7); MEAN CELL VOLUME 85.1 fl (80-96); MEAN PLT VOLUME 10.1 fl (7.5-11.1); PLATELET COUNT 139 K/MM3 (134-434); RBC 5.22 M/mm3 (4.00-5.60); RDW 14.3 % (11.9-15.9); WHITE BLOOD COUNT 8.5 K/mm3 (4.0-10.0)
[2020-07-13 00:02] LABS: PROTHROMBIN TIME (PATIENT) 12.3 SEC (9.7-13.0)
[2020-07-13 00:05] LABS: ACTIVATED PTT 31.5 SECONDS (25.2-36.5)
[2020-07-13 00:10] LABS: POTASSIUM 3.9 mmol/L (3.5-5.1)
[2020-07-13 00:12] LABS: ALBUMIN 4.4 g/dl (3.4-5.0); CALCIUM 8.7 mg/dL (8.5-10.1)
[2020-07-13 00:16] LABS: CREATININE 1.3 mg/dL (0.55-1.3)
[2020-07-13 00:17] LABS: BILIRUBIN,TOTAL 0.5 mg/dL (0.2-1); TOT PROT 8.5 g/dl (6.4-8.2)
[2020-07-13] MEDS ORDERED: DEXAMETHASONE SOD PHOSPHATE 10 MG/1 ML VIAL IVPUSH ONE (01:02)
[2020-07-13 01:10] LABS: PH,URINE 7.5 (5.0-8.0); URINE APPEARANCE CLEAR; URINE BILIRUBIN NEGATIVE (NEGATIVE); URINE COLOR YELLOW; URINE GLUCOSE (UA) NEGATIVE (NEGATIVE); URINE KETONE NEGATIVE (NEGATIVE); URINE LEUK ESTERASE NEGATIVE (NEGATIVE); URINE NITRITE NEGATIVE (NEGATIVE); URINE PROTEIN NEGATIVE (NEGATIVE); URINE UROBILINOGEN 0.2 mg/dL (0.2-1.0)
[2020-07-13] MEDS ORDERED: DEXAMETHASONE SOD PHOSPHATE 10 MG/1 ML VIAL ONE (01:22)
[2020-07-13 04:16] VITALS: BP 172/90; PULSE 65
== END 2020-07-13 02:00 | disposition short-term general hospital (02) ==
LOC: JER 19:03
PROC: 3E033NZ Introduction of Analgesics, Hypnotics, Sedatives into Peripheral Vein, Percutaneous Approach (ICD-10-PCS; principal; 2020-07-12)
DX: R53.1 Weakness (principal); G83.4 Cauda equina syndrome
CPT/HCPCS: 36415; 72146-TC; 72148-TC; 80053; 81003; 85027; 85610; 85730; 87086; 93005; 93010; 99291; 99292; J1100

== ENCOUNTER 2022-07-13 04:31 | Day surgery (SDC) | payer OTHER, BC ==
[2022-07-12 12:55] VITALS: BMI 27.4
[2022-07-13] MEDS ORDERED: amLODIPine BESYLATE 10 MG TABLET (FP) PO ONE (14:15)
[2022-07-13] MEDS ORDERED: LABETALOL HCL 5 MG/1 ML (100MG/20 ML VIAL) IVPUSH ONE (14:15)
[2022-07-13] MEDS ORDERED: GABAPENTIN 100 MG CAPSULE PO ONE (14:30)
[2022-07-13] MEDS ORDERED: traMADol HCL 50 MG TABLET PO ONE (14:45)
[2022-07-13 15:27] VITALS: BP 185/88; PULSE 75; RESP 22
[2022-07-13 16:25] VITALS: TEMP 97.5
== END 2022-07-13 15:50 | disposition home or self-care (01) ==
LOC: JASU-ENDO 04:31
PROVIDERS: ATTEND Internal Medicine Gastroenterology
PROC: 0DB78ZX Excision of Stomach, Pylorus, Via Natural or Artificial Opening Endoscopic, Diagnostic (ICD-10-PCS; 2022-07-13)
PROC: 0DB58ZX Excision of Esophagus, Via Natural or Artificial Opening Endoscopic, Diagnostic (ICD-10-PCS; principal; 2022-07-13 11:45)
DX: K29.50 Unspecified chronic gastritis without bleeding (principal); K21.00 Gastro-esophageal reflux disease with esophagitis, without bleeding; Z85.118 Personal history of other malignant neoplasm of bronchus and lung
CPT/HCPCS: 88305-TC; 88342-TC

== ENCOUNTER 2022-07-13 15:55 | Emergency (ER) | payer OTHER, BC ==
[2022-07-13 16:18] VITALS: RESP 18
[2022-07-13 17:32] VITALS: BP 152/84; PULSE 76; TEMP 97.9; BMI 28.3
[2022-07-13] MEDS ORDERED: traMADol HCL 50 MG TABLET PO ONE (18:27)
[2022-07-13] MEDS ORDERED: traMADol HCL 50 MG TABLET ONE (18:30)
== END 2022-07-13 18:51 | disposition home or self-care (01) ==
LOC: JER 15:55
DX: R03.0 Elevated blood-pressure reading, without diagnosis of hypertension (principal)
CPT/HCPCS: 99283-25

== ENCOUNTER 2023-08-19 04:56 | Observation (INO) | payer OTHER, BC ==
[2023-08-19] MEDS ORDERED: ACETAMINOPHEN 1000 MG/100 ML BAG IVPB ONE (07:55)
[2023-08-19] MEDS ORDERED: ACETAMINOPHEN INJECTION 100 ML IVPB ONE (09:38)
[2023-08-19 10:01] LABS: HEMATOCRIT 39.2 % (35.4-49); HEMOGLOBIN 12.7 GM/dL (11.7-16.9); MCH 27.6 pg (25.7-33.7); MCHC 32.4 g/dl (32.0-35.9); MEAN CELL VOLUME 85.2 fl (80-96); MEAN PLT VOLUME 10.7 fl (7.5-11.1); PLATELET COUNT 131 10^3/uL (134-434); RDW 14.3 % (11.9-15.9); WHITE BLOOD COUNT 7.4 K/mm3 (4.0-10.0)
[2023-08-19 10:09] LABS: INR 1.03 (0.83-1.09); PROTHROMBIN TIME (PATIENT) 11.9 SEC (9.7-13.0)
[2023-08-19 10:11] LABS: ACTIVATED PTT 29.7 SECONDS (25.2-36.5)
[2023-08-19 10:18] LABS: POTASSIUM 5.5 mmol/L (3.5-5.1)
[2023-08-19 10:20] LABS: ALBUMIN 3.6 g/dl (3.4-5.0); BLOOD UREA NITROGEN 36.7 mg/dL (7-18); CALCIUM 8.5 mg/dL (8.5-10.1); MAGNESIUM 2.6 mg/dL (1.8-2.4)
[2023-08-19 10:23] LABS: CREATININE 2.2 mg/dL (0.55-1.3)
[2023-08-19 10:25] LABS: BILIRUBIN,TOTAL 0.4 mg/dL (0.2-1); TOT PROT 7.7 g/dl (6.4-8.2)
[2023-08-19] MEDS ORDERED: SODIUM CHLORIDE 0.9% 500 ML INFUS.BAG IV ONE (11:02)
[2023-08-19] MEDS ORDERED: SODIUM CHLORIDE 1,000 ML IV SCH (12:30)
[2023-08-19] MEDS ORDERED: ENOXAPARIN NA (PORCINE) 40 MG/0.4 ML DISP.SYRIN SQ SCH (12:45)
[2023-08-19 13:00] LABS: ANISOCYTOSIS 0; MACROCYTOSIS 0
[2023-08-19] MEDS ORDERED: SODIUM ZIRCONIUM CYCLOSILICATE (LOKELMA) 5 GM PACKET PO ONE (13:30)
[2023-08-19] MEDS ORDERED: SODIUM ZIRCONIUM CYCLOSILICATE (LOKELMA) 10 GM PACKET ONE (13:43)
[2023-08-19] MEDS ORDERED: ACETAMINOPHEN 325 MG TABLET (FP) ONE (20:15)
[2023-08-19] MEDS ORDERED: ATORVASTATIN CA 20 MG TABLET (FP) ONE (20:15)
[2023-08-19] MEDS ORDERED: CARVEDILOL 12.5 MG TABLET (FP) ONE (20:15)
[2023-08-19] MEDS ORDERED: MELATONIN 5 MG TABLETS ONE (20:15)
[2023-08-19] MEDS ORDERED: HEPARIN NA (PORCINE) 5,000 UNITS/ML 1ML VIAL ONE (20:15)
[2023-08-19] MEDS ORDERED: MELATONIN 5 MG TABLETS PO ONE (20:30)
[2023-08-19] MEDS: HEPARIN NA (PORCINE) 5,000 UNITS/ML 1ML VIAL SQ SCH (21:05)
[2023-08-19] MEDS: CARVEDILOL 12.5 MG TABLET (FP) PO SCH (21:05)
[2023-08-19] MEDS: ACETAMINOPHEN 325 MG TABLET (FP) PO SCH (21:05)
[2023-08-19] MEDS ORDERED: PRAMIPEXOLE DIHYDROCHLORIDE 0.5 MG TABLET PO SCH (22:00)
[2023-08-19] MEDS ORDERED: traMADol HCL 50 MG TABLET PO SCH (22:00)
[2023-08-19] MEDS ORDERED: ATORVASTATIN CA 20 MG TABLET (FP) PO SCH (22:00)
[2023-08-20 01:49] VITALS: RESP 18
[2023-08-20 08:14] LABS: BLOOD UREA NITROGEN 30.4 mg/dL (7-18); MAGNESIUM 2.4 mg/dL (1.8-2.4)
[2023-08-20 08:17] LABS: CREATININE 1.8 mg/dL (0.55-1.3); PHOSPHOROUS 3.2 mg/dL (2.5-4.9)
[2023-08-20 08:48] VITALS: BP 143/95; PULSE 77
[2023-08-20 08:55] VITALS: TEMP 98.1
[2023-08-20] MEDS: HEPARIN NA (PORCINE) 5,000 UNITS/ML 1ML VIAL SQ SCH (09:12)
[2023-08-20] MEDS: CARVEDILOL 12.5 MG TABLET (FP) PO SCH (09:12)
[2023-08-20] MEDS: ACETAMINOPHEN 325 MG TABLET (FP) PO SCH (09:12)
[2023-08-20] MEDS ORDERED: ASPIRIN COATED 81 MG TABLET.EC PO SCH (10:00)
[2023-08-20] MEDS ORDERED: CLOPIDOGREL BISULFATE 75 MG TABLET (FP) PO SCH (10:00)
== END 2023-08-20 13:05 | disposition left against medical advice (07) ==
LOC: JER 04:56 → JERBED 11:10 → UNDOADMOB 11:10 → INTOOBSV 12:31 → OBSVTOIN 12:31 → JERBED 12:48
PROVIDERS: ADMIT Internal Medicine
PROC: 3E0337Z Introduction of Electrolytic and Water Balance Substance into Peripheral Vein, Percutaneous Approach (ICD-10-PCS; principal; 2023-08-19)
PROC: 3E033NZ Introduction of Analgesics, Hypnotics, Sedatives into Peripheral Vein, Percutaneous Approach (ICD-10-PCS; 2023-08-19)
PROC: 3E023GC Introduction of Other Therapeutic Substance into Muscle, Percutaneous Approach (ICD-10-PCS; 2023-08-19)
DX: R07.9 Chest pain, unspecified (principal); N17.9 Acute kidney failure, unspecified; E87.5 Hyperkalemia; G89.29 Other chronic pain; I25.10 Atherosclerotic heart disease of native coronary artery without angina pectoris; G25.81 Restless legs syndrome; I11.0 Hypertensive heart disease with heart failure; E66.9 Obesity, unspecified; F32.A Depression, unspecified
CPT/HCPCS: 36415; 71045-TC-FY; 76775-TC; 80048; 80053; 80061; 82570; 83735; 84100; 84300; 84484; 85025; 85610; 85730; 93005; 93010; 96372; 96374; 99285-25; G0378; J1644

== ENCOUNTER 2023-10-25 07:25 | Emergency (ER) | payer OTHER, BC ==
[2023-10-25 07:34] VITALS: RESP 17; TEMP 97.9; BMI 29.2
[2023-10-25] MEDS ORDERED: traMADol HCL 50 MG TABLET ONE (08:20)
[2023-10-25] MEDS ORDERED: GABAPENTIN 100 MG CAPSULE ONE (08:20)
[2023-10-25] MEDS: traMADol HCL 50 MG TABLET PO ONE (08:27)
[2023-10-25] MEDS: GABAPENTIN 100 MG CAPSULE PO ONE (08:27)
[2023-10-25] MEDS: morphine CARPU-JECT 2 MG/1 ML DISP.SYRIN IM ONE ×2 (08:30→08:34)
[2023-10-25 09:32] VITALS: BP 149/74; PULSE 65
== END 2023-10-25 11:23 | disposition home or self-care (01) ==
LOC: JER 07:25
PROC: 3E023GC Introduction of Other Therapeutic Substance into Muscle, Percutaneous Approach (ICD-10-PCS; principal; 2023-10-25)
DX: M79.604 Pain in right leg (principal); M79.605 Pain in left leg; W18.39XA Other fall on same level, initial encounter
CPT/HCPCS: 99284-25

== ENCOUNTER 2023-11-06 04:26 | Emergency (ER) | payer OTHER, BC ==
[2023-11-06 04:42] VITALS: TEMP 97.8; BMI 29.2
[2023-11-06] MEDS ORDERED: morphine SULFATE 4 MG/ML VIAL ONE (05:05)
[2023-11-06] MEDS ORDERED: GABAPENTIN 100 MG CAPSULE ONE (05:05)
[2023-11-06] MEDS ORDERED: traMADol HCL 50 MG TABLET ONE (05:05)
[2023-11-06] MEDS: traMADol HCL 50 MG TABLET PO ONE (05:12)
[2023-11-06] MEDS: GABAPENTIN 100 MG CAPSULE PO ONE (05:13)
[2023-11-06] MEDS: morphine SULFATE 4 MG/ML VIAL IM ONE (05:13)
[2023-11-06 06:30] LABS: HEMATOCRIT 40.4 % (35.4-49); HEMOGLOBIN 13.5 GM/dL (11.7-16.9); MCH 28.5 pg (25.7-33.7); MCHC 33.4 g/dl (32.0-35.9); MEAN CELL VOLUME 85.4 fl (80-96); MEAN PLT VOLUME 9.9 fl (7.5-11.1); PLATELET COUNT 155 10^3/uL (134-434); RBC 4.74 M/mm3 (4.00-5.60); RDW 13.6 % (11.9-15.9); WHITE BLOOD COUNT 9.6 K/mm3 (4.0-10.0)
[2023-11-06 06:38] LABS: POTASSIUM 4.3 mmol/L (3.5-5.1)
[2023-11-06 06:40] LABS: CALCIUM 9.5 mg/dL (8.5-10.1)
[2023-11-06 06:41] LABS: BLOOD UREA NITROGEN 18.7 mg/dL (7-18)
[2023-11-06 06:45] LABS: CREATININE 1.7 mg/dL (0.55-1.3)
[2023-11-06 06:46] LABS: BILIRUBIN,TOTAL 0.3 mg/dL (0.2-1); TOT PROT 7.9 g/dl (6.4-8.2)
[2023-11-06 08:34] VITALS: BP 147/51; PULSE 66; RESP 17
[2023-11-06 08:56] LABS: ANISOCYTOSIS 1+; MACROCYTOSIS 0
== END 2023-11-06 09:35 | disposition home or self-care (01) ==
LOC: JER 04:26
PROC: 3E023GC Introduction of Other Therapeutic Substance into Muscle, Percutaneous Approach (ICD-10-PCS; principal; 2023-11-06)
DX: M79.604 Pain in right leg (principal); M79.605 Pain in left leg
CPT/HCPCS: 36415; 80053; 83605; 85025; 93005; 93010; 96372; 99284-25

== ENCOUNTER 2023-11-08 12:14 | Emergency (ER) | payer OTHER, BC ==
[2023-11-08 12:42] VITALS: BP 137/86; PULSE 89; RESP 19; TEMP 98.1; BMI 27.6
[2023-11-08] MEDS ORDERED: ACETAMINOPHEN 325 MG TABLET (FP) ONE (13:19)
[2023-11-08] MEDS: ACETAMINOPHEN 500 MG TABLET (FP) PO ONE (13:22)
[2023-11-08] MEDS ORDERED: oxyCODONE HCL 5 MG TABLET ONE (14:23)
[2023-11-08] MEDS: oxyCODONE HCL 5 MG TABLET PO ONE (14:35)
== END 2023-11-08 15:34 | disposition home or self-care (01) ==
LOC: JER 12:14
DX: G62.9 Polyneuropathy, unspecified (principal); M79.604 Pain in right leg; M79.605 Pain in left leg; R20.2 Paresthesia of skin
CPT/HCPCS: 99283-25

== ENCOUNTER 2023-11-17 12:00 | Observation (INO) | payer OTHER, BC ==
[2023-11-17] MEDS ORDERED: oxyCODONE HCL 5 MG TABLET ONE ×2 (13:29→21:08)
[2023-11-17] MEDS ORDERED: LIDOCAINE 4% PATCH TP ONE ×2 (13:29→14:53)
[2023-11-17 13:32] LABS: HEMATOCRIT 39.7 % (35.4-49); HEMOGLOBIN 12.9 GM/dL (11.7-16.9); MCH 27.7 pg (25.7-33.7); MCHC 32.5 g/dl (32.0-35.9); MEAN CELL VOLUME 85.2 fl (80-96); MEAN PLT VOLUME 10.3 fl (7.5-11.1); PLATELET COUNT 153 10^3/uL (134-434); RBC 4.66 M/mm3 (4.00-5.60); RDW 13.4 % (11.9-15.9); WHITE BLOOD COUNT 11.3 K/mm3 (4.0-10.0)
[2023-11-17] MEDS: LIDOCAINE 4% PATCH TP ONE ×2 (13:34→15:20)
[2023-11-17] MEDS: oxyCODONE HCL 5 MG TABLET PO ONE (13:35)
[2023-11-17 13:53] LABS: POTASSIUM 4.2 mmol/L (3.5-5.1)
[2023-11-17 13:55] LABS: CALCIUM 9.8 mg/dL (8.5-10.1)
[2023-11-17 13:56] LABS: ALBUMIN 4.2 g/dl (3.4-5.0); BLOOD UREA NITROGEN 19.1 mg/dL (7-18)
[2023-11-17 13:59] LABS: CREATININE 1.7 mg/dL (0.55-1.3)
[2023-11-17 14:00] LABS: BILIRUBIN,TOTAL 0.3 mg/dL (0.2-1); TOT PROT 8.2 g/dl (6.4-8.2)
[2023-11-17 14:26] LABS: ANISOCYTOSIS 0; MACROCYTOSIS 0
[2023-11-17] MEDS: LIDOCAINE PATCH REMOVAL MC SCH (21:05)
[2023-11-17] MEDS: LIDOCAINE PATCH REMOVAL MC ONE (21:05)
[2023-11-17] MEDS ORDERED: ATORVASTATIN CA 20 MG TABLET (FP) ONE (21:07)
[2023-11-17] MEDS ORDERED: PREGABALIN 50 MG CAPSULE ONE (21:07)
[2023-11-17] MEDS ORDERED: PREGABALIN 25 MG CAPSULE ONE (21:07)
[2023-11-17] MEDS ORDERED: DOCUSATE SODIUM 100 MG CAPSULE (FP) PO ONE (21:08)
[2023-11-17] MEDS: PREGABALIN 75 MG CAPSULE PO SCH (21:12)
[2023-11-17] MEDS: oxyCODONE HCL 5 MG TABLET PO PRN (21:12)
[2023-11-17] MEDS: ATORVASTATIN CA 20 MG TABLET (FP) PO SCH (21:12)
[2023-11-17] MEDS: DOCUSATE SODIUM 100 MG CAPSULE (FP) PO SCH (21:12)
[2023-11-18 00:29] VITALS: BMI 29.5
[2023-11-18 07:32] VITALS: RESP 18
[2023-11-18] MEDS: amLODIPine BESYLATE 10 MG TABLET (FP) PO SCH (09:09)
[2023-11-18] MEDS: ESCITALOPRAM OXALATE 10 MG TABLET PO SCH (09:09)
[2023-11-18] MEDS: ASPIRIN COATED 81 MG TABLET.EC PO SCH (09:10)
[2023-11-18] MEDS: HEPARIN NA (PORCINE) 5,000 UNITS/ML 1ML VIAL SQ SCH (09:10)
[2023-11-18] MEDS: ENALAPRIL MALEATE 5 MG TABLET PO SCH (11:20)
[2023-11-18 16:51] LABS: PH,URINE 6.5 (5.0-8.0); URINE APPEARANCE CLEAR; URINE BILIRUBIN NEGATIVE (NEGATIVE); URINE COLOR YELLOW; URINE GLUCOSE (UA) NEGATIVE (NEGATIVE); URINE KETONE NEGATIVE (NEGATIVE); URINE LEUK ESTERASE NEGATIVE (NEGATIVE); URINE NITRITE NEGATIVE (NEGATIVE); URINE PROTEIN NEGATIVE (NEGATIVE); URINE UROBILINOGEN 0.2 mg/dL (0.2-1.0)
[2023-11-18 17:11] LABS: COCAINE, UR NEGATIVE (NEGATIVE); METHADONE, UR NEGATIVE (NEGATIVE); OPIATES, URI NEGATIVE (NEGATIVE); URINE AMPHETAMINES NEGATIVE (NEGATIVE); URINE BARBITURATES NEGATIVE (NEGATIVE); URINE BENZODIAZEPINES NEGATIVE (NEGATIVE)
[2023-11-18 17:12] LABS: PHENCYCLIDINE,URINE NEGATIVE (NEGATIVE)
[2023-11-19 07:42] VITALS: BP 123/58; PULSE 54; TEMP 97.5
[2023-11-19 08:02] LABS: HEMATOCRIT 35.4 % (35.4-49); HEMOGLOBIN 11.6 GM/dL (11.7-16.9); MCHC 32.8 g/dl (32.0-35.9); MEAN CELL VOLUME 85.3 fl (80-96); MEAN PLT VOLUME 11.1 fl (7.5-11.1); PLATELET COUNT 139 10^3/uL (134-434); RBC 4.15 M/mm3 (4.00-5.60); RDW 13.2 % (11.9-15.9); WHITE BLOOD COUNT 8.4 K/mm3 (4.0-10.0)
[2023-11-19 08:42] LABS: POTASSIUM 3.9 mmol/L (3.5-5.1)
[2023-11-19 08:57] LABS: CREATININE 1.9 mg/dL (0.55-1.3)
[2023-11-19 08:58] LABS: BILIRUBIN,TOTAL 0.5 mg/dL (0.2-1); CALCIUM 8.6 mg/dL (8.5-10.1); TOT PROT 6.8 g/dl (6.4-8.2)
[2023-11-19 08:59] LABS: ALBUMIN 3.5 g/dl (3.4-5.0); BLOOD UREA NITROGEN 25.7 mg/dL (7-18)
[2023-11-19] MEDS: MAGNESIUM OXIDE 400 MG TABLET (FP) PO SCH (10:00)
[2023-11-19] MEDS: POLYETHYLENE GLYCOL (HEALTHYLAX) 3350 17 GM PACKET PO SCH (11:10)
== END 2023-11-19 13:20 | disposition home or self-care (01) ==
LOC: JER 12:00 → JERBED 16:44 → J7W 11-18 00:13
PROVIDERS: ADMIT Internal Medicine
PROC: 3E023GC Introduction of Other Therapeutic Substance into Muscle, Percutaneous Approach (ICD-10-PCS; principal; 2023-11-17)
DX: N18.9 Chronic kidney disease, unspecified (principal); M79.662 Pain in left lower leg; M79.661 Pain in right lower leg; I10 Essential (primary) hypertension; I25.2 Old myocardial infarction; Z85.46 Personal history of malignant neoplasm of prostate; M48.061 Spinal stenosis, lumbar region without neurogenic claudication
CPT/HCPCS: 36415; 72131-TC; 76775-TC; 80053; 80307; 81003; 82570; 82607; 83036; 84156; 84439; 84443; 85025; 86850; 86900; 86901; 93005; 93010; 96372; 97116-GP; 97161-GP; 99285-25; G0378; J1644

== ENCOUNTER 2023-12-11 06:19 | Emergency (ER) | payer OTHER, BC ==
[2023-12-11 06:28] VITALS: PULSE 75; RESP 20; TEMP 98.2; BMI 29.3
[2023-12-11] MEDS: ACETAMINOPHEN 325 MG TABLET (FP) PO ONE (08:26)
[2023-12-11 08:28] VITALS: BP 156/73
[2023-12-11] MEDS ORDERED: ACETAMINOPHEN INJECTION 100 ML IVPB ONE (08:30)
[2023-12-11] MEDS: morphine CARPU-JECT 2 MG/1 ML DISP.SYRIN IVPUSH ONE (08:43)
[2023-12-11] MEDS: ACETAMINOPHEN 1000 MG/100 ML BAG IVPB ONE (08:43)
[2023-12-11 08:52] LABS: HEMATOCRIT 43.8 % (35.4-49); HEMOGLOBIN 14.1 GM/dL (11.7-16.9); MCH 27.5 pg (25.7-33.7); MCHC 32.2 g/dl (32.0-35.9); MEAN CELL VOLUME 85.6 fl (80-96); MEAN PLT VOLUME 9.8 fl (7.5-11.1); PLATELET COUNT 153 10^3/uL (134-434); RBC 5.11 M/mm3 (4.00-5.60); RDW 13.6 % (11.9-15.9); WHITE BLOOD COUNT 16.8 K/mm3 (4.0-10.0)
[2023-12-11 09:02] LABS: INR 0.98 (0.83-1.09); PROTHROMBIN TIME (PATIENT) 11.1 SEC (9.7-13.0)
[2023-12-11 09:04] LABS: ACTIVATED PTT 31.3 SECONDS (25.2-36.5)
[2023-12-11 09:09] LABS: POTASSIUM 3.8 mmol/L (3.5-5.1)
[2023-12-11 09:11] LABS: CALCIUM 9.4 mg/dL (8.5-10.1)
[2023-12-11 09:12] LABS: BLOOD UREA NITROGEN 22.2 mg/dL (7-18)
[2023-12-11 09:15] LABS: CREATININE 1.8 mg/dL (0.55-1.3)
[2023-12-11 09:16] LABS: BILIRUBIN,TOTAL 0.3 mg/dL (0.2-1); TOT PROT 8.4 g/dl (6.4-8.2)
[2023-12-11] MEDS: SODIUM CHLORIDE 0.9% 500 ML INFUS.BAG IV ONE (10:49)
[2023-12-11] MEDS ORDERED: oxyCODONE HCL 5 MG TABLET ONE (11:54)
[2023-12-11] MEDS: oxyCODONE HCL 5 MG TABLET PO ONE (11:57)
== END 2023-12-11 14:50 | disposition home or self-care (01) ==
LOC: JER 06:19
PROC: 3E033NZ Introduction of Analgesics, Hypnotics, Sedatives into Peripheral Vein, Percutaneous Approach (ICD-10-PCS; principal; 2023-12-11)
PROC: 3E033NZ Introduction of Analgesics, Hypnotics, Sedatives into Peripheral Vein, Percutaneous Approach (ICD-10-PCS; 2023-12-11)
DX: S20.212A Contusion of left front wall of thorax, initial encounter (principal); G57.92 Unspecified mononeuropathy of left lower limb; W06.XXXA Fall from bed, initial encounter
CPT/HCPCS: 36415; 70450-TC; 71046-TC-FY; 71260-TC; 74177-TC; 80053; 84484; 85025; 85610; 85730; 86850; 86900; 86901; 93005; 93010; 99285-25; J0131; Q9967

== ENCOUNTER 2024-01-01 02:01 | Inpatient (IN) | payer OTHER, BC ==
[2024-01-01] MEDS ORDERED: ASPIRIN 81 MG CHEWABLE TABLETS ONE (02:17)
[2024-01-01] MEDS: ASPIRIN 81 MG CHEWABLE TABLETS PO ONE (02:30)
[2024-01-01 02:35] LABS: HEMATOCRIT 37.7 % (35.4-49); HEMOGLOBIN 12.7 GM/dL (11.7-16.9); MCH 28.2 pg (25.7-33.7); MCHC 33.6 g/dl (32.0-35.9); MEAN PLT VOLUME 10.4 fl (7.5-11.1); PLATELET COUNT 138 10^3/uL (134-434); RBC 4.49 M/mm3 (4.00-5.60); RDW 13.8 % (11.9-15.9); WHITE BLOOD COUNT 7.7 K/mm3 (4.0-10.0)
[2024-01-01] MEDS ORDERED: morphine SULFATE 4 MG/ML VIAL ONE (02:40)
[2024-01-01 02:46] LABS: INR 0.97 (0.83-1.09); PROTHROMBIN TIME (PATIENT) 11.2 SEC (9.7-13.0)
[2024-01-01] MEDS: morphine CARPU-JECT 4 MG/1 ML DISP.SYRIN IVPUSH ONE (02:46)
[2024-01-01 02:48] LABS: ACTIVATED PTT 33.2 SECONDS (25.2-36.5)
[2024-01-01 03:08] LABS: POTASSIUM 4.5 mmol/L (3.5-5.1)
[2024-01-01 03:09] LABS: CALCIUM 9.6 mg/dL (8.5-10.1)
[2024-01-01 03:10] LABS: ALBUMIN 3.8 g/dl (3.4-5.0); BLOOD UREA NITROGEN 29.1 mg/dL (7-18); MAGNESIUM 2.5 mg/dL (1.8-2.4)
[2024-01-01 03:13] LABS: CREATININE 1.8 mg/dL (0.55-1.3)
[2024-01-01 03:15] LABS: BILIRUBIN,TOTAL 0.4 mg/dL (0.2-1); TOT PROT 7.4 g/dl (6.4-8.2)
[2024-01-01 03:18] LABS: N-TERMINAL BNP 112.4 pg/ml (5-450)
[2024-01-01] MEDS ORDERED: HEPARIN NA (PORCINE) 5,000 UNITS/ML 1ML VIAL SQ SCH (06:00)
[2024-01-01] MEDS ORDERED: dilTIAZem HCL 125 MG/25 ML - 25 ML VIAL ONE (06:02)
[2024-01-01] MEDS ORDERED: HEPARIN NA (PORCINE) 5,000 UNITS/ML 1ML VIAL ONE (06:03)
[2024-01-01] MEDS: dilTIAZem HCL 50 MG/10 ML - 10 ML VIAL IVPUSH ONE (06:12)
[2024-01-01] MEDS: dilTIAZem HCL 30 MG TABLET PO SCH (06:12)
[2024-01-01 06:31] LABS: POTASSIUM 4.6 mmol/L (3.5-5.1)
[2024-01-01 06:35] LABS: ALBUMIN 4.1 g/dl (3.4-5.0); BLOOD UREA NITROGEN 28.3 mg/dL (7-18); CALCIUM 9.4 mg/dL (8.5-10.1)
[2024-01-01 06:36] LABS: MAGNESIUM 2.6 mg/dL (1.8-2.4)
[2024-01-01 06:38] LABS: CREATININE 1.7 mg/dL (0.55-1.3); PHOSPHOROUS 3.2 mg/dL (2.5-4.9)
[2024-01-01 06:40] LABS: BILIRUBIN,TOTAL 0.4 mg/dL (0.2-1); TOT PROT 7.9 g/dl (6.4-8.2)
[2024-01-01 06:50] LABS: HEMATOCRIT 41.4 % (35.4-49); HEMOGLOBIN 14.1 GM/dL (11.7-16.9); MCH 28.6 pg (25.7-33.7); MCHC 34.1 g/dl (32.0-35.9); MEAN CELL VOLUME 83.9 fl (80-96); MEAN PLT VOLUME 10.7 fl (7.5-11.1); PLATELET COUNT 124 10^3/uL (134-434); RBC 4.94 M/mm3 (4.00-5.60); RDW 14.2 % (11.9-15.9); WHITE BLOOD COUNT 8.3 K/mm3 (4.0-10.0)
[2024-01-01 07:32] LABS: ANISOCYTOSIS 1+; MACROCYTOSIS 1+
[2024-01-01] MEDS ORDERED: PATIENT'S OWN MEDICATION (NON-FORMULARY) (Oxycodone Hcl [Oxycodone Hcl] 10 MG Tablet) PO PRN (09:10)
[2024-01-01] MEDS: ESCITALOPRAM OXALATE 10 MG TABLET PO SCH (09:49)
[2024-01-01] MEDS: TORSEMIDE 20 MG TABLET (FP) PO SCH (09:49)
[2024-01-01] MEDS ORDERED: ESCITALOPRAM OXALATE 10 MG TABLET ONE (09:49)
[2024-01-01] MEDS ORDERED: LORazepam 0.5 MG TABLET ONE (09:57)
[2024-01-01] MEDS ORDERED: FAMOTIDINE 20 MG TABLET ONE (09:58)
[2024-01-01] MEDS ORDERED: POTASSIUM CHLORIDE TABS 10 MEQ TABLET.ER (FP) ONE (09:58)
[2024-01-01] MEDS ORDERED: ENALAPRIL MALEATE 5 MG TABLET ONE (09:58)
[2024-01-01] MEDS ORDERED: ASPIRIN COATED 81 MG TABLET.EC ONE (09:58)
[2024-01-01] MEDS ORDERED: amLODIPine BESYLATE 10 MG TABLET (FP) ONE (09:59)
[2024-01-01] MEDS: ENALAPRIL MALEATE 5 MG TABLET PO SCH (10:00)
[2024-01-01] MEDS: FAMOTIDINE 20 MG TABLET PO SCH (10:00)
[2024-01-01] MEDS: POTASSIUM CHLORIDE TABS 10 MEQ TABLET.ER (FP) PO SCH (10:00)
[2024-01-01] MEDS: amLODIPine BESYLATE 10 MG TABLET (FP) PO SCH (10:00)
[2024-01-01] MEDS ORDERED: GABAPENTIN 300 MG CAPSULE PO SCH (10:00)
[2024-01-01] MEDS: ASPIRIN COATED 81 MG TABLET.EC PO SCH (10:00)
[2024-01-01] MEDS: LORazepam 0.5 MG TABLET PO PRN (10:16)
[2024-01-01] MEDS: PATIENT'S OWN MEDICATION (NON-FORMULARY) (Magnesium [Magnesium] 250 MG Tablet) PO SCH (10:17)
[2024-01-01] MEDS: HEPARIN NA (PORCINE) 5,000 UNITS/ML 1ML VIAL SQ SCH (11:46)
[2024-01-01] MEDS: DOCUSATE SODIUM 100 MG CAPSULE (FP) PO SCH (14:00)
[2024-01-01] MEDS: GABAPENTIN 300 MG CAPSULE PO SCH (14:00)
[2024-01-01] MEDS ORDERED: oxyCODONE HCL 5 MG TABLET ONE (14:03)
[2024-01-01] MEDS ORDERED: GABAPENTIN 300 MG CAPSULE ONE (14:04)
[2024-01-01] MEDS ORDERED: DOCUSATE SODIUM 100 MG CAPSULE (FP) PO ONE (14:05)
[2024-01-01] MEDS: oxyCODONE HCL 5 MG TABLET PO PRN (14:16)
[2024-01-01] MEDS: PRAMIPEXOLE DIHYDROCHLORIDE 0.5 MG TABLET PO SCH (21:23)
[2024-01-01] MEDS: ATORVASTATIN CA 20 MG TABLET (FP) PO SCH (21:23)
[2024-01-01] MEDS: ACETAMINOPHEN 1000 MG/100 ML BAG IVPB PRN (21:24)
[2024-01-02] MEDS: oxyCODONE HCL 5 MG TABLET PO PRN (01:11)
[2024-01-02 07:18] LABS: HEMATOCRIT 38.2 % (35.4-49); HEMOGLOBIN 12.7 GM/dL (11.7-16.9); MCH 28.1 pg (25.7-33.7); MCHC 33.3 g/dl (32.0-35.9); MEAN CELL VOLUME 84.6 fl (80-96); MEAN PLT VOLUME 10.9 fl (7.5-11.1); PLATELET COUNT 152 10^3/uL (134-434); RBC 4.52 M/mm3 (4.00-5.60); RDW 13.8 % (11.9-15.9); WHITE BLOOD COUNT 8.6 K/mm3 (4.0-10.0)
[2024-01-02 07:35] LABS: POTASSIUM 5.3 mmol/L (3.5-5.1)
[2024-01-02 07:38] LABS: ALBUMIN 4.2 g/dl (3.4-5.0); BLOOD UREA NITROGEN 34.7 mg/dL (7-18); CALCIUM 9.6 mg/dL (8.5-10.1)
[2024-01-02 07:41] LABS: CREATININE 2.4 mg/dL (0.55-1.3)
[2024-01-02 07:42] LABS: BILIRUBIN,TOTAL 0.6 mg/dL (0.2-1); TOT PROT 8.1 g/dl (6.4-8.2)
[2024-01-02 09:30] LABS: ANISOCYTOSIS 0; MACROCYTOSIS 0
[2024-01-02] MEDS: POLYETHYLENE GLYCOL (HEALTHYLAX) 3350 17 GM PACKET PO SCH (12:27)
[2024-01-02] MEDS: PREGABALIN 25 MG CAPSULE PO SCH ×2 (12:28→21:33)
[2024-01-02 12:59] VITALS: BMI 30.4
[2024-01-02] MEDS: SODIUM ZIRCONIUM CYCLOSILICATE (LOKELMA) 10 GM PACKET PO SCH (14:23)
[2024-01-03 07:22] LABS: HEMATOCRIT 36.2 % (35.4-49); HEMOGLOBIN 11.8 GM/dL (11.7-16.9); MCH 27.7 pg (25.7-33.7); MCHC 32.5 g/dl (32.0-35.9); MEAN CELL VOLUME 85.3 fl (80-96); MEAN PLT VOLUME 11.1 fl (7.5-11.1); PLATELET COUNT 136 10^3/uL (134-434); RBC 4.24 M/mm3 (4.00-5.60); RDW 13.7 % (11.9-15.9); WHITE BLOOD COUNT 10.7 K/mm3 (4.0-10.0)
[2024-01-03 07:43] LABS: POTASSIUM 4.1 mmol/L (3.5-5.1)
[2024-01-03 07:47] LABS: BLOOD UREA NITROGEN 41.5 mg/dL (7-18); CALCIUM 8.9 mg/dL (8.5-10.1)
[2024-01-03 07:50] LABS: CREATININE 2.4 mg/dL (0.55-1.3)
[2024-01-03] MEDS: FUROSEMIDE 40 MG/4 ML INJECTABLE VIAL IVPUSH SCH (13:28)
[2024-01-03] MEDS: SODIUM CHLORIDE 1,000 ML IV SCH (17:15)
[2024-01-03] MEDS: SODIUM CHLORIDE 0.45% 1,000 ML IV SCH (21:26)
[2024-01-03] MEDS: oxyCODONE HCL 5 MG TABLET PO ONE (23:03)
[2024-01-04 07:01] LABS: HEMATOCRIT 37.8 % (35.4-49); HEMOGLOBIN 12.5 GM/dL (11.7-16.9); MCHC 33.1 g/dl (32.0-35.9); MEAN CELL VOLUME 84.5 fl (80-96); MEAN PLT VOLUME 10.6 fl (7.5-11.1); PLATELET COUNT 128 10^3/uL (134-434); RBC 4.47 M/mm3 (4.00-5.60); RDW 13.4 % (11.9-15.9); WHITE BLOOD COUNT 6.5 K/mm3 (4.0-10.0)
[2024-01-04 07:28] LABS: POTASSIUM 3.9 mmol/L (3.5-5.1)
[2024-01-04 07:42] LABS: ALBUMIN 3.7 g/dl (3.4-5.0); CALCIUM 8.4 mg/dL (8.5-10.1)
[2024-01-04 07:43] LABS: BLOOD UREA NITROGEN 35.4 mg/dL (7-18); MAGNESIUM 2.6 mg/dL (1.8-2.4)
[2024-01-04 07:46] LABS: PHOSPHOROUS 2.8 mg/dL (2.5-4.9)
[2024-01-04 07:48] LABS: BILIRUBIN,TOTAL 0.3 mg/dL (0.2-1); TOT PROT 7.2 g/dl (6.4-8.2)
[2024-01-04] MEDS: ESCITALOPRAM OXALATE 20 MG TABLET PO SCH (09:19)
[2024-01-04] MEDS: oxyCODONE HCL 5 MG TABLET PO ONE (11:48)
[2024-01-04 15:04] VITALS: BP 141/61; PULSE 86; RESP 20; TEMP 98.1
[2024-01-05] MEDS ORDERED: FUROSEMIDE 40 MG TABLET (FP) PO SCH (10:00)
== END 2024-01-04 15:50 | disposition home or self-care (01) | DRG 309 ==
LOC: JER 02:01 → JERBED 04:29 → OBSVTOIN 04:42 → JERBED 04:42 → J4W 14:49
PROVIDERS: ADMIT Internal Medicine; ATTEND Internal Medicine
DX: I48.91 Unspecified atrial fibrillation (principal); I13.0 Hypertensive heart and chronic kidney disease with heart failure and stage 1 through stage 4 chronic kidney disease, or unspecified chronic kidney disease; I50.32 Chronic diastolic (congestive) heart failure; N17.9 Acute kidney failure, unspecified; R07.89 Other chest pain; N18.30 Chronic kidney disease, stage 3 unspecified; E78.5 Hyperlipidemia, unspecified; E87.5 Hyperkalemia; K59.00 Constipation, unspecified; I73.9 Peripheral vascular disease, unspecified; K21.9 Gastro-esophageal reflux disease without esophagitis; G57.90 Unspecified mononeuropathy of unspecified lower limb; F41.8 Other specified anxiety disorders; I25.10 Atherosclerotic heart disease of native coronary artery without angina pectoris; E66.9 Obesity, unspecified; Z68.37 Body mass index [BMI] 37.0-37.9, adult; G62.9 Polyneuropathy, unspecified; K73.0 Chronic persistent hepatitis, not elsewhere classified; Z85.46 Personal history of malignant neoplasm of prostate; Z85.118 Personal history of other malignant neoplasm of bronchus and lung; Z95.5 Presence of coronary angioplasty implant and graft
CPT/HCPCS: 0241U-QW; 36415; 71045-TC-FY; 74176-TC; 76775-TC; 80048; 80053; 81003; 83036; 83690; 83735; 83880; 84100; 84439; 84443; 84481; 84484; 85025; 85027; 85610; 85730; 87086; 93005; 93010; 93306-TC; 94010; 97116-GP; 97161-GP; 99285-25; G0378; J0131; J1644

== ENCOUNTER 2024-01-08 00:24 | Emergency (ER) | payer OTHER, BC ==
[2024-01-08 00:35] VITALS: TEMP 98.2; BMI 32.3
[2024-01-08 00:53] VITALS: BP 133/47; PULSE 64; RESP 19
[2024-01-08] MEDS ORDERED: morphine SULFATE 4 MG/ML VIAL ONE (01:03)
[2024-01-08] MEDS: morphine CARPU-JECT 4 MG/1 ML DISP.SYRIN IVPUSH ONE (01:22)
[2024-01-08 01:58] LABS: BLOOD UREA NITROGEN 18.4 mg/dL (7-18); CALCIUM 9.2 mg/dL (8.5-10.1)
[2024-01-08 02:01] LABS: CREATININE 1.7 mg/dL (0.55-1.3)
[2024-01-08 02:03] LABS: BILIRUBIN,TOTAL 0.3 mg/dL (0.2-1); TOT PROT 7.8 g/dl (6.4-8.2)
[2024-01-08 02:24] LABS: HEMATOCRIT 34.2 % (35.4-49); HEMOGLOBIN 11.6 GM/dL (11.7-16.9); MCH 28.4 pg (25.7-33.7); MCHC 33.9 g/dl (32.0-35.9); MEAN CELL VOLUME 83.8 fl (80-96); PLATELET COUNT 122 10^3/uL (134-434); RBC 4.08 M/mm3 (4.00-5.60); RDW 13.7 % (11.9-15.9); WHITE BLOOD COUNT 9.1 K/mm3 (4.0-10.0)
[2024-01-08 02:43] LABS: POTASSIUM 4.4 mmol/L (3.5-5.1)
[2024-01-08 02:46] LABS: ALBUMIN 3.8 g/dl (3.4-5.0); BLOOD UREA NITROGEN 18.6 mg/dL (7-18)
[2024-01-08 02:49] LABS: CREATININE 1.6 mg/dL (0.55-1.3)
[2024-01-08 02:50] LABS: BILIRUBIN,TOTAL 0.3 mg/dL (0.2-1); TOT PROT 7.2 g/dl (6.4-8.2)
[2024-01-08 03:06] LABS: ANISOCYTOSIS 2+; MACROCYTOSIS 2+
== END 2024-01-08 04:36 | disposition home or self-care (01) ==
LOC: JER 00:24
PROC: 3E033NZ Introduction of Analgesics, Hypnotics, Sedatives into Peripheral Vein, Percutaneous Approach (ICD-10-PCS; principal; 2024-01-08)
DX: G57.93 Unspecified mononeuropathy of bilateral lower limbs (principal); G89.29 Other chronic pain
CPT/HCPCS: 36415; 80053; 85025; 93005; 93010; 99284-25

== ENCOUNTER 2024-01-10 20:36 | Emergency (ER) | payer OTHER, BC ==
[2024-01-10 21:10] VITALS: PULSE 85; RESP 22; TEMP 98.9
[2024-01-10] MEDS ORDERED: morphine SULFATE 4 MG/ML VIAL ONE (22:10)
[2024-01-10 22:14] LABS: POTASSIUM 4.5 mmol/L (3.5-5.1)
[2024-01-10 22:16] VITALS: BP 139/107
[2024-01-10 22:16] LABS: ALBUMIN 4.3 g/dl (3.4-5.0); BLOOD UREA NITROGEN 19.6 mg/dL (7-18); CALCIUM 9.8 mg/dL (8.5-10.1)
[2024-01-10] MEDS: morphine CARPU-JECT 4 MG/1 ML DISP.SYRIN IVPUSH ONE (22:16)
[2024-01-10 22:18] VITALS: BMI 33.0
[2024-01-10 22:19] LABS: CREATININE 1.6 mg/dL (0.55-1.3)
[2024-01-10 22:21] LABS: BILIRUBIN,TOTAL 0.4 mg/dL (0.2-1); TOT PROT 8.1 g/dl (6.4-8.2)
[2024-01-10 23:46] LABS: BASO % 0.5 % (0-2.0); EOS % 6.7 % (0-4.5); HEMATOCRIT 36.5 % (35.4-49); HEMOGLOBIN 11.9 GM/dL (11.7-16.9); LYMPH % 10.3 % (8-40); MCH 27.3 pg (25.7-33.7); MCHC 32.6 g/dl (32.0-35.9); MEAN CELL VOLUME 83.8 fl (80-96); MEAN PLT VOLUME 10.2 fl (7.5-11.1); MONO % 24.4 % (3.8-10.2); NEUT % 58.1 % (42.8-82.8); PLATELET COUNT 126 10^3/uL (134-434); RBC 4.35 M/mm3 (4.00-5.60); RDW 13.6 % (11.9-15.9); WHITE BLOOD COUNT 11.3 K/mm3 (4.0-10.0)
[2024-01-11 06:04] LABS: ANISOCYTOSIS 3+; MACROCYTOSIS 0; OVALOCYTE 1+; ROULEAU 1+
== END 2024-01-11 00:28 | disposition home or self-care (01) ==
LOC: JER 20:36
PROC: 3E033NZ Introduction of Analgesics, Hypnotics, Sedatives into Peripheral Vein, Percutaneous Approach (ICD-10-PCS; principal; 2024-01-10)
DX: M79.2 Neuralgia and neuritis, unspecified (principal); M79.606 Pain in leg, unspecified
CPT/HCPCS: 36415; 71045-TC-FY; 80053; 84484; 85025; 93005; 93010; 99285-25

== ENCOUNTER 2024-01-16 22:56 | Emergency (ER) | payer OTHER, BC ==
[2024-01-16 23:11] VITALS: BMI 29.0
[2024-01-16] MEDS ORDERED: morphine SULFATE 4 MG/ML VIAL ONE (23:34)
[2024-01-16 23:37] LABS: HEMATOCRIT 36.3 % (35.4-49); HEMOGLOBIN 12.2 GM/dL (11.7-16.9); MCH 27.9 pg (25.7-33.7); MCHC 33.5 g/dl (32.0-35.9); MEAN CELL VOLUME 83.2 fl (80-96); MEAN PLT VOLUME 10.1 fl (7.5-11.1); PLATELET COUNT 134 10^3/uL (134-434); RBC 4.37 M/mm3 (4.00-5.60); RDW 14.2 % (11.9-15.9); WHITE BLOOD COUNT 11.7 K/mm3 (4.0-10.0)
[2024-01-16] MEDS: morphine CARPU-JECT 4 MG/1 ML DISP.SYRIN IVPUSH ONE (23:38)
[2024-01-17] LABS: ANISOCYTOSIS 1+; MACROCYTOSIS 0; TEAR DROP CELLS 1+
[2024-01-17 00:04] LABS: POTASSIUM 4.1 mmol/L (3.5-5.1)
[2024-01-17 00:06] LABS: CALCIUM 9.4 mg/dL (8.5-10.1)
[2024-01-17 00:07] LABS: ALBUMIN 4.3 g/dl (3.4-5.0); BLOOD UREA NITROGEN 23.9 mg/dL (7-18)
[2024-01-17 00:11] LABS: BILIRUBIN,TOTAL 0.4 mg/dL (0.2-1); TOT PROT 8.1 g/dl (6.4-8.2)
[2024-01-17] MEDS ORDERED: morphine SULFATE 4 MG/ML VIAL ONE (01:03)
[2024-01-17] MEDS: morphine SULFATE 4 MG/ML VIAL IVPUSH ONE (01:09)
[2024-01-17 01:43] VITALS: BP 154/63; PULSE 66; RESP 18
== END 2024-01-17 02:48 | disposition home or self-care (01) ==
LOC: JER 22:56
PROC: 3E033NZ Introduction of Analgesics, Hypnotics, Sedatives into Peripheral Vein, Percutaneous Approach (ICD-10-PCS; principal; 2024-01-16)
PROC: 3E033NZ Introduction of Analgesics, Hypnotics, Sedatives into Peripheral Vein, Percutaneous Approach (ICD-10-PCS; 2024-01-17)
DX: G62.9 Polyneuropathy, unspecified (principal)
CPT/HCPCS: 36415; 80053; 85025; 99284-25

== ENCOUNTER 2024-01-19 03:36 | Emergency (ER) | payer OTHER, BC ==
[2024-01-19 03:49] VITALS: BP 159/66; PULSE 70; RESP 22; TEMP 97.4; BMI 29.0
[2024-01-19] MEDS ORDERED: IBUPROFEN 400 MG TABLET (FP) PO ONE ×2 (04:11→04:17)
[2024-01-19] MEDS ORDERED: ACETAMINOPHEN 325 MG TABLET (FP) PO ONE (04:11)
[2024-01-19] MEDS ORDERED: ACETAMINOPHEN 325 MG TABLET (FP) ONE (04:16)
[2024-01-19] MEDS ORDERED: LIDOCAINE 4% PATCH TP ONE (04:17)
[2024-01-19] MEDS ORDERED: BACLOFEN 10 MG TABLET (FP) ONE (04:23)
[2024-01-19] MEDS: LIDOCAINE 4% PATCH TP ONE (04:28)
[2024-01-19] MEDS: BACLOFEN 10 MG TABLET (FP) PO ONE (04:29)
[2024-01-19] MEDS ORDERED: LIDOCAINE PATCH REMOVAL MC SCH (22:00)
== END 2024-01-19 04:46 | disposition home or self-care (01) ==
LOC: JER 03:36
DX: M79.604 Pain in right leg (principal); M79.605 Pain in left leg; G89.29 Other chronic pain
CPT/HCPCS: 99283-25; J0475

== ENCOUNTER 2024-03-08 16:42 | Inpatient (IN) | payer OTHER, BC ==
[2024-03-08 17:26] LABS: PROTHROMBIN TIME (PATIENT) 11.5 SEC (9.7-13.0)
[2024-03-08 17:29] LABS: ACTIVATED PTT 28.5 SECONDS (25.2-36.5)
[2024-03-08 17:38] LABS: BASO % 0.4 % (0-2.0); EOS % 8.3 % (0-4.5); HEMATOCRIT 32.7 % (35.4-49); LYMPH % 9.8 % (8-40); MCH 28.3 pg (25.7-33.7); MCHC 33.7 g/dl (32.0-35.9); MEAN CELL VOLUME 84.1 fl (80-96); MONO % 15.1 % (3.8-10.2); NEUT % 66.4 % (42.8-82.8); PLATELET COUNT 139 10^3/uL (134-434); RBC 3.89 M/mm3 (4.00-5.60); RDW 14.3 % (11.9-15.9); WHITE BLOOD COUNT 9.9 K/mm3 (4.0-10.0)
[2024-03-08 17:44] LABS: POTASSIUM 4.6 mmol/L (3.5-5.1)
[2024-03-08 17:46] LABS: CALCIUM 9.3 mg/dL (8.5-10.1)
[2024-03-08 17:47] LABS: ALBUMIN 3.9 g/dl (3.4-5.0); BLOOD UREA NITROGEN 22.8 mg/dL (7-18); MAGNESIUM 2.2 mg/dL (1.8-2.4)
[2024-03-08 17:50] LABS: CREATININE 2.5 mg/dL (0.55-1.3); PHOSPHOROUS 3.1 mg/dL (2.5-4.9)
[2024-03-08 17:51] LABS: BILIRUBIN,TOTAL 0.3 mg/dL (0.2-1)
[2024-03-08 17:52] LABS: TOT PROT 7.3 g/dl (6.4-8.2)
[2024-03-08] MEDS ORDERED: NALOXONE HCL 0.4 MG/ML VIAL ONE ×2 (18:08→18:15)
[2024-03-08] MEDS: NALOXONE HCL 0.4 MG/ML VIAL IVPUSH ONE ×2 (18:31→18:51)
[2024-03-08] MEDS: SODIUM CHLORIDE 1,000 ML IV STA (18:31)
[2024-03-08 18:32] LABS: CHOLESTEROL 155 mg/dL (50-200)
[2024-03-08 18:33] LABS: LDL CHOLESTEROL (ONLY SJRH) 90 mg/dL (5-100)
[2024-03-08 18:35] LABS: HDL CHOLESTEROL 39 mg/dL (40-60)
[2024-03-08 18:55] LABS: URINE APPEARANCE CLOUDY; URINE BILIRUBIN NEGATIVE (NEGATIVE); URINE COLOR YELLOW; URINE GLUCOSE (UA) NEGATIVE (NEGATIVE); URINE KETONE NEGATIVE (NEGATIVE); URINE LEUK ESTERASE NEGATIVE (NEGATIVE); URINE NITRITE NEGATIVE (NEGATIVE); URINE PROTEIN NEGATIVE (NEGATIVE); URINE UROBILINOGEN 0.2 mg/dL (0.2-1.0)
[2024-03-08 21:33] LABS: URINE BENZODIAZEPINES NEGATIVE (NEGATIVE)
[2024-03-08 21:34] LABS: COCAINE, UR NEGATIVE (NEGATIVE); METHADONE, UR NEGATIVE (NEGATIVE); OPIATES, URI NEGATIVE (NEGATIVE); PHENCYCLIDINE,URINE NEGATIVE (NEGATIVE); URINE BARBITURATES NEGATIVE (NEGATIVE)
[2024-03-08 21:48] LABS: URINE AMPHETAMINES NEGATIVE (NEGATIVE)
[2024-03-08] MEDS ORDERED: NALOXONE HCL 0.4 MG/ML VIAL IVPUSH PRN (21:52)
[2024-03-08] MEDS ORDERED: ATORVASTATIN CA 20 MG TABLET (FP) PO SCH (22:00)
[2024-03-08] MEDS ORDERED: HEPARIN NA (PORCINE) 5,000 UNITS/ML 1ML VIAL ONE (22:08)
[2024-03-08] MEDS ORDERED: ATORVASTATIN CA 40 MG TABLET (FP) ONE (22:08)
[2024-03-08] MEDS: HEPARIN NA (PORCINE) 5,000 UNITS/ML 1ML VIAL SQ SCH (22:16)
[2024-03-08] MEDS: ATORVASTATIN CA 20 MG TABLET (FP) PO SCH (22:16)
[2024-03-08 22:50] LABS: ARTERIAL BLD GAS O2 SATURATION 94.4 % (95-98); ARTERIAL BLOOD GAS BASE EXCESS -0.5 mmol/L (-2-2); ARTERIAL BLOOD GAS PO2 74.7 mmHg (80-100); ARTERIAL BLOOD GAS pH 7.358 (7.350-7.450)
[2024-03-08 22:52] LABS: ALLENS TEST POSITIVE
[2024-03-09] MEDS: LACTATED RINGERS SOLUTION 1,000 ML/1,000 ML INFUS.BAG IV SCH (00:43)
[2024-03-09 02:05] VITALS: BMI 31.0
[2024-03-09 08:43] LABS: BASO % 0.4 % (0-2.0); EOS % 7.1 % (0-4.5); HEMATOCRIT 34.7 % (35.4-49); HEMOGLOBIN 11.7 GM/dL (11.7-16.9); LYMPH % 10.5 % (8-40); MCH 28.1 pg (25.7-33.7); MCHC 33.8 g/dl (32.0-35.9); MEAN CELL VOLUME 83.1 fl (80-96); MEAN PLT VOLUME 10.8 fl (7.5-11.1); MONO % 18.3 % (3.8-10.2); NEUT % 63.7 % (42.8-82.8); PLATELET COUNT 137 10^3/uL (134-434); RBC 4.18 M/mm3 (4.00-5.60); RDW 14.2 % (11.9-15.9); WHITE BLOOD COUNT 9.9 K/mm3 (4.0-10.0)
[2024-03-09 09:08] LABS: POTASSIUM 3.7 mmol/L (3.5-5.1)
[2024-03-09 09:19] LABS: ALBUMIN 3.9 g/dl (3.4-5.0); BLOOD UREA NITROGEN 23.5 mg/dL (7-18); MAGNESIUM 2.2 mg/dL (1.8-2.4)
[2024-03-09] MEDS: CLOPIDOGREL BISULFATE 75 MG TABLET (FP) PO SCH (09:20)
[2024-03-09] MEDS: ESCITALOPRAM OXALATE 20 MG TABLET PO SCH (09:20)
[2024-03-09] MEDS: ASPIRIN COATED 81 MG TABLET.EC PO SCH (09:20)
[2024-03-09] MEDS: GABAPENTIN 300 MG CAPSULE PO SCH (09:20)
[2024-03-09 09:22] LABS: CREATININE 2.1 mg/dL (0.55-1.3)
[2024-03-09 09:23] LABS: PHOSPHOROUS 3.7 mg/dL (2.5-4.9)
[2024-03-09 09:24] LABS: BILIRUBIN,TOTAL 0.6 mg/dL (0.2-1); TOT PROT 7.2 g/dl (6.4-8.2)
[2024-03-09] MEDS: POLYETHYLENE GLYCOL (HEALTHYLAX) 3350 17 GM PACKET PO ONE (22:26)
[2024-03-10 09:23] LABS: HEMATOCRIT 35.5 % (35.4-49); HEMOGLOBIN 12.2 GM/dL (11.7-16.9); MCH 28.7 pg (25.7-33.7); MCHC 34.4 g/dl (32.0-35.9); MEAN CELL VOLUME 83.2 fl (80-96); PLATELET COUNT 142 10^3/uL (134-434); RBC 4.26 M/mm3 (4.00-5.60); RDW 13.7 % (11.9-15.9); WHITE BLOOD COUNT 10.7 K/mm3 (4.0-10.0)
[2024-03-10 09:44] LABS: POTASSIUM 4.1 mmol/L (3.5-5.1)
[2024-03-10 09:49] LABS: ALBUMIN 3.9 g/dl (3.4-5.0); BLOOD UREA NITROGEN 19.4 mg/dL (7-18); CALCIUM 9.4 mg/dL (8.5-10.1); MAGNESIUM 2.5 mg/dL (1.8-2.4)
[2024-03-10 09:52] LABS: CREATININE 1.7 mg/dL (0.55-1.3); PHOSPHOROUS 2.8 mg/dL (2.5-4.9)
[2024-03-10 09:53] LABS: BILIRUBIN,TOTAL 0.5 mg/dL (0.2-1); TOT PROT 7.5 g/dl (6.4-8.2)
[2024-03-10] MEDS: ENALAPRIL MALEATE 5 MG TABLET PO SCH (10:34)
[2024-03-10] MEDS: POLYETHYLENE GLYCOL (HEALTHYLAX) 3350 17 GM PACKET PO SCH (10:34)
[2024-03-10] MEDS: traMADol HCL 50 MG TABLET PO PRN (10:37)
[2024-03-10 11:01] LABS: ANISOCYTOSIS 0; HELMET CELLS 0; HOWELL-JOLLY BODIES 0; MACROCYTOSIS 0; OVALOCYTE 0; ROULEAU 0; SICKELED CELLS 0; TARGET CELLS 0; TEAR DROP CELLS 0; TOXIC GRANULATION 0
[2024-03-10] MEDS: amLODIPine BESYLATE 10 MG TABLET (FP) PO SCH (16:01)
[2024-03-10] MEDS: PRAMIPEXOLE DIHYDROCHLORIDE 0.25 MG TABLET PO SCH (21:33)
[2024-03-11] MEDS: PRAMIPEXOLE DIHYDROCHLORIDE 0.125 MG TABLET PO SCH (06:21)
[2024-03-11 09:01] LABS: HEMATOCRIT 39.4 % (35.4-49); HEMOGLOBIN 13.1 GM/dL (11.7-16.9); MCH 28.1 pg (25.7-33.7); MCHC 33.1 g/dl (32.0-35.9); MEAN CELL VOLUME 84.9 fl (80-96); MEAN PLT VOLUME 10.9 fl (7.5-11.1); PLATELET COUNT 139 10^3/uL (134-434); RBC 4.64 M/mm3 (4.00-5.60); RDW 14.2 % (11.9-15.9); WHITE BLOOD COUNT 8.7 K/mm3 (4.0-10.0)
[2024-03-11 09:20] LABS: POTASSIUM 4.3 mmol/L (3.5-5.1)
[2024-03-11 09:23] LABS: CALCIUM 10.1 mg/dL (8.5-10.1)
[2024-03-11 09:24] LABS: ALBUMIN 4.4 g/dl (3.4-5.0); BLOOD UREA NITROGEN 17.8 mg/dL (7-18); MAGNESIUM 2.6 mg/dL (1.8-2.4)
[2024-03-11 09:27] LABS: CREATININE 1.7 mg/dL (0.55-1.3); PHOSPHOROUS 3.7 mg/dL (2.5-4.9)
[2024-03-11 09:28] LABS: BILIRUBIN,TOTAL 0.4 mg/dL (0.2-1)
[2024-03-11 09:29] LABS: TOT PROT 8.2 g/dl (6.4-8.2)
[2024-03-11 10:56] LABS: PLATELET ESTIMATE ADEQUATE
[2024-03-11] MEDS ORDERED: hydrALAZINE HCL 25 MG TABLET (FP) PO SCH (11:03)
[2024-03-11] MEDS ORDERED: FUROSEMIDE 20 MG TABLET (FP) PO SCH (11:15)
[2024-03-11] MEDS ORDERED: ATORVASTATIN CA 40 MG TABLET (FP) PO SCH (11:20)
[2024-03-11] MEDS: hydrALAZINE HCL 25 MG TABLET (FP) PO SCH (11:37)
[2024-03-11] MEDS: metoPROLOL SUCCINATE 25 MG TAB.SR.24H (FP) PO SCH (12:08)
[2024-03-11] MEDS: TORSEMIDE 20 MG TABLET (FP) PO SCH (12:08)
[2024-03-11 15:34] VITALS: BP 143/71; RESP 18; TEMP 97.9
[2024-03-11 15:40] VITALS: PULSE 77
[2024-03-12] MEDS ORDERED: NIFEdipine E.R 60 MG TABLET PO SCH (10:00)
== END 2024-03-11 18:45 | disposition home or self-care (01) | DRG 308 ==
LOC: JER 16:42 → JERBED 20:22 → J4S 03-09 01:33 → OBSVTOIN 03-10 12:05
PROVIDERS: ADMIT Internal Medicine; ATTEND Internal Medicine
DX: R00.1 Bradycardia, unspecified (principal); I50.33 Acute on chronic diastolic (congestive) heart failure; I13.0 Hypertensive heart and chronic kidney disease with heart failure and stage 1 through stage 4 chronic kidney disease, or unspecified chronic kidney disease; N17.9 Acute kidney failure, unspecified; I25.10 Atherosclerotic heart disease of native coronary artery without angina pectoris; I73.9 Peripheral vascular disease, unspecified; G62.9 Polyneuropathy, unspecified; I44.0 Atrioventricular block, first degree; I48.0 Paroxysmal atrial fibrillation; N18.30 Chronic kidney disease, stage 3 unspecified; K21.9 Gastro-esophageal reflux disease without esophagitis; F41.9 Anxiety disorder, unspecified; I95.89 Other hypotension; G89.29 Other chronic pain
CPT/HCPCS: 36415; 36600; 70450-TC; 70496-TC; 70498-TC; 71045-TC-FY; 80053; 80061; 80307; 81003; 82803; 83036; 83605; 83735; 84100; 84443; 84484; 85025; 85610; 85730; 93005; 93010; 97116-GP; 97162-GP; 99285-25; G0378; J1644